=== PATIENT | female | born 1955 | race Caucasian/White ===

== ENCOUNTER → 2023-10-27 13:23 | Outpatient (REF) | payer OTHER, SELFPAY | LOC: RAD 13:23 | PROVIDERS: ATTENDING PHYSICIAN Internal Medicine | DX: Z12.31 Encounter for screening mammogram for malignant neoplasm of breast (principal); Z78.0 Asymptomatic menopausal state; F17.210 Nicotine dependence, cigarettes, uncomplicated | CPT/HCPCS: 71271; 77063; 77067; 77080 ==

== ENCOUNTER 2024-09-29 22:47 | Inpatient (IN) | payer OTHER, SELFPAY ==
[2024-09-29 17:50] VITALS: BP 192/88
[2024-09-29 18:00] VITALS: BP 196/86
[2024-09-29 18:12] LABS: % Basophils 0.4 % (0-2); % Eosinophils 0.8 % (0-6); % Immature Granulocytes 0.4 % (0-0.5); % Lymphocytes 18.9 % (20.5-51.1); % Monocytes 8.1 % (1.7-9.3); % Neutrophils 71.4 % (42.2-75.2); Absolute Eosinophils 0.1 10^3/uL (0-0.7); Absolute Immature Granulocytes 0.1 10^3/uL (0-0.05); Absolute Lymphocytes 2.1 10^3/uL (1.2-3.4); Absolute Monocytes 0.9 10^3/uL (0.1-0.6); Absolute Neutrophils 8.1 10^3/uL (1.4-6.5); Hematocrit 38.7 % (37.0-47.0); Hemoglobin 14.3 g/dL (12.0-16.0); Mean Corpuscular Hgb 33.1 pg (27.0-31.0); Mean Corpuscular Volume 89.6 fL (81.0-99.0); Mean Platelet Volume 9.9 fL (7.4-10.4); Nucleated Red Blood Cells % 0 %; Platelet Count 288 10^3/uL (130-400); Red Blood Cell Count 4.32 10^6/uL (4.20-5.40); Red Cell Dist. Width 12.3 % (11.5-14.5); White Blood Cell Count 11.3 10^3/uL (4.8-10.8)
--- NOTE | 2024-09-29 18:19 | ED.MUSCINJ ---
HPI-Injury
General
Chief Complaint: Fall
Source: patient
Exam Limitations: none
Time Seen by Provider: 09/29/24 18:06
Nursing documentation reviewed up to this point in time: agreed with
History of Present Illness-Injury
Is this injury a work related problem?: No
Is pt an associate of [facility]?: No
Initial Injury comments:
Patient states she was walking down basement steps and tripped. Fell down 2 steps. SHe denies hitting her head. No LOC. COmplains of pain to right hip, knee and wrist. Injury occurred just ASSURANCE SENIOR MANAGER>
Past History
Past History
ED Past Medical History: Hypercholesterolemia, Hypothyroidism and Other (Parkinson's disease)
Social History
Tobacco: Non-smoker
Personal:
Living: with family
Employment: Employed
Review of Systems
Review of Systems
Allergies reviewed?: Yes
All Other Systems: ROS reviewed and negative except as documented in HPI and ROS
Constitutional: Reports no symptoms
EENT: Reports no symptoms
Respiratory: Reports no symptoms
Cardiac: Reports no symptoms
ABD/GI: Reports no symptoms
: Reports no symptoms
Musculoskeletal: Reports joint pain (Pain to rght wrist, right knee, right hip)
Skin: Reports no symptoms
Neurological: Reports no symptoms
Psychiatric: Reports no symptoms
Musculoskeletal Injury Exam
Musculoskeletal Injury Exam
Right Wrist:
Pain with Movement?: Moderate
Tender to palpation?: Moderate
Soft tissue swelling?: Mild
External deformity and angulation?: None
Joint effusion?: None
Contusion?: None
Hematoma-local bleeding into tissue?: Moderate
Strain- Sprain- Tear (Connective tissue injury)?: Moderate
Crepitus with movement?: No
Joint instability?: No
Malalignment/deformity?: No
Range of motion: Limited
Distal skin color and temperature: normal-warm & good color
Capillary Refill: normal
Normal distal neurovascular exam?: Yes
Peripheral Pulses: radial (right): 3+
Right Hip:
Pain with Movement?: Moderate
Tender to palpation?: Moderate
Soft tissue swelling?: None
External deformity and angulation?: None
Joint effusion?: None
Contusion?: Moderate
Hematoma-local bleeding into tissue?: None
Strain- Sprain- Tear (Connective tissue injury)?: Moderate
Crepitus with movement?: No
Joint instability?: No
Malalignment/deformity?: No
Range of motion: Limited
Distal skin color and temperature: normal-warm & good color
Capillary Refill: normal
Normal distal neurovascular exam?: Yes
Peripheral Pulses: posterior tibial (right): 3+ and dorsalis pedis (right): 3+
Right Knee:
Pain with Movement?: Moderate
Tender to palpation?: Moderate
Soft tissue swelling?: None
External deformity and angulation?: None
Joint effusion?: None
Contusion?: Moderate
Hematoma-local bleeding into tissue?: None
Strain- Sprain- Tear (Connective tissue injury)?: Moderate
Crepitus with movement?: No
Joint instability?: No
Malalignment/deformity?: No
Range of motion: Limited
Distal skin color and temperature: normal-warm & good color
Capillary Refill: normal
Normal distal neurovascular exam?: Yes
Phy Exam
General Physical Exam
General Presentation: moderate distress
General age: appears stated age
General Skin: warm and dry
General Habitus: normal
General Mental: alert
Cardiovascular Exam
Cardiovascular Exam: regular rate/rhythm
Pulmonary Exam
Pulmonary Exam: no respiratory distress and chest non tender
Musculoskeletal Exam
Musculoskeletal Exam: neuro vasc intact
Skin Exam
Skin Exam: normal color, warm/dry and no rash
Psychiatric Exam
Psychiatric Exam: normal mood/affect
Injury Course
Orders/Labs/Results
Orders:
Orders
09/29/24 17:54
Electrocardiogram (*1) Urgent
Reason for Study: Other
Other Reason for Exam: fall
EKG- Treatment ONCE
09/29/24 18:07
Complete Blood Count/With Diff Urgent
Comprehensive Metabolic Panel Urgent
09/29/24 18:15
0.9% Sodium Chloride 1000 ml [Nss] 1,000 ml IV BOLUS
HYDROmorphone [Dilaudid] 0.25 mg IV NOW STA
Ondansetron Injectable [Zofran] 4 mg IV NOW STA
CR Knee - Right 3 Views Urgent
Comment: LIMITED VIEWS , PT IS COMPATIVE.
Reason For Exam: fall
Hip, Right 2-3 Views [CR Hip - RT w/wo Pel 2-3 Vw*] Urgent
Comment:
Reason For Exam: fall
Include a pelvis x-ray?: Yes
Wrist, Right 3 Views [CR Wrist - Right Min 3 Views] Urgent
Comment:
Reason For Exam: fall
09/29/24 18:27
Carbidopa/Levodopa [Sinemet 25-100] 1 tablet PO NOW STA
09/29/24 19:40
CT Head W/o Iv Contrast Urgent
Comment:
Reason For Exam: change in mental status
09/29/24 19:54
Acetaminophen 1000MG/100Ml [Ofirmev] 1,000 mg in 100 ml IV ONCE
Acetaminophen IV Indication:: No NM & No Enteral Access
09/29/24 21:11
Lorazepam [Ativan] 0.5 mg IV NOW STA
09/29/24 21:13
Electrocardiogram (*1) Urgent
Reason for Study: PreOp
ORTHOPEDIC CONSULT Urgent
Consulting Provider: Willam Yarbrough
Was physician already notified: Yes
EKG- Treatment ONCE
09/29/24 22:24
Admit/Transfer Patient As Directed
Co-Sign Provider:
Level of Care: Inpatient admission
Assign to:: Medical/Surgical
Physician / Group: Corky/Hospitalist
Diagnosis: Right hip fracture
Reason for Hospitalization: Right hip fracture
Expected length of stay greater than two midnights?: Yes
ELOS- Estimated Length of Stay in days: 3
I certify the patient meets the requirements for IP care: Yes
PRN Pain Medication Management As Directed
May give lesser potent ordered pain med per pt: Yes
preference::
Protocol:: Medication orders for pain may be administered in a
manner that supports deferring to patient preference
when the pt is:
- Requesting an ordered lesser potent pain medication.
Least to most potent pain medications are defined
as: acetaminophen < NSAID < tramadol < opioids
(morphine, oxycodone, hydromorphone).
- Requesting a lesser dose of the same medication IF
ORDERED.
- Requesting a less intrusive route of administration
if both routes are prescribed by the provider (PO <
IV).
09/29/24 22:33
Code Status As Directed
Resuscitation Status: Full Code
09/29/24 23:00
Flush (0.9% Sodium Chloride) [Flush (Nss)] See Dose Instructions IV PER PROTOCOL
09/29/24 23:16
Fentanyl Citrate/Pf [Sublimaze] 25 mcg IV Q1HPRN PRN
09/29/24 23:47
Type+Screen Urgent
09/30/24 00:50
0.9% Sodium Chloride 1000 ml [Nss] 1,000 ml IV 75 mls/hr
Acetaminophen [Tylenol] 650 mg PO Q4HWA
Docusate Sodium [Colace] 100 mg PO BID
Lorazepam [Ativan] 1 mg PO DAILY PRN anxiety
Magnesium Hydroxide [Milk of Magnesia] 30 ml PO DAILYPRN PRN
Ondansetron Injectable [Zofran] 4 mg IV Q6HPRN PRN
Sennosides [Senokot] 17.2 mg PO BID
Tamsulosin [Flomax] 0.4 mg PO DAILYPRN PRN
09/30/24 00:50
Activity As Directed
Activity Level: Bedrest
Bladder Scan As Directed
Follow Bladder Retention/Intermittent Cath Algorithm?: Yes
PRN if no void in __ hours: 6
Comment: if not voiding 6 hrs upon arrival to floor, bladder scan & follow algorithm
Intake/ Output As Directed
Frequency: Per unit guidelines
Neurovascular Checks As Directed
Location: Right Lower extremity
Frequency: q4h
Pneumatic Compression Sleeves As Directed
Type: Knee high
Straight Cath As Directed
Frequency: Per Retention Algorithm
Additional Instructions: straight cath as needed per acute urinary retention algorithm for 24 hrs
Additional Instructions: for bladder scan greater than 400 mL
Vital Signs As Directed
Frequency: Per unit guidelines
DX Deep Vein Thrombosis Video Routine
09/30/24 04:30
Carbidopa/Levodopa [Sinemet 25-100] 1 tablet PO DAILY@0430
09/30/24 Breakfast
NPO
Allow oral meds: Yes
Allow clear liquids: No
09/30/24 07:00
CeFAZolin 2 GRAM [Ancef] 2 grams in 10 ml IV PRE PROCEDURE
Povidone Iodine 10% Solution [Povidone Iodine 10%] 38 ml 0.9% Sodium Chloride 1000 ml [Nss] 1,000 ml IRRIG OR
09/30/24 08:00
Carbidopa/Levodopa [Sinemet 25-100] 1 tablet PO DAILY
Levothyroxine [Synthroid] 25 mcg PO DAILY
09/30/24 10:00
Carbidopa/Levodopa Cr [Sinemet Cr 25-100 (Extended Release)] 1 tablet PO BID@1000,2100
Carbidopa/Levodopa [Sinemet 25-100] 1 tablet PO DAILY@1000
09/30/24 13:00
Carbidopa/Levodopa [Sinemet 25-100] 2.5 tablet PO DAILY@1300
09/30/24 16:00
Carbidopa/Levodopa [Sinemet 25-100] 2.5 tablet PO DAILY@1600
09/30/24 19:00
Carbidopa/Levodopa [Sinemet 25-100] 2.5 tablet PO DAILY@1900
09/30/24 21:00
Carbidopa/Levodopa [Sinemet 25-100] 1 tablet PO DAILY@2100
Finasteride [Proscar] 5 mg PO DAILY
Minoxidil [Loniten] 2.5 mg PO DAILY
Rosuvastatin Calcium [Crestor] 10 mg PO DAILY
Abnormal Lab Results
09/29/24
18:07
WBC 11.3 H 10^3/uL
(4.8-10.8)
MCH 33.1 H pg
(27.0-31.0)
Abs Immat Gran (auto) 0.1 H 10^3/uL
(0-0.05)
Absolute Neuts (auto) 8.1 H 10^3/uL
(1.4-6.5)
Absolute Monos (auto) 0.9 H 10^3/uL
(0.1-0.6)
Lymphocytes % 18.9 L %
(20.5-51.1)
Chloride 108 H mmol/L
(98-107)
BUN 18 H mg/dl
(7-17)
AST 44 H U/L
(14-36)
09/29/24 18:07
09/29/24 18:07
*Radiology
Radiology exam reviewed: radiology read reviewed
*Pulse Oximetry
Patient hypoxic: no
*Critical Care Note
Total Time (30-74mins, 75-104mins- exclusive of procedures): Not Applicable
Update Note
Update Note:
Xray reviewed, confirms right hip fracture. Dr. Yarbrough notified, will plan for surgery in the AM. SHe will be admitted to the hospitalist service, NPO after MN. Dr. Yarbrough requests holding initiation of heparin or lovenox, hospitalist is aware.
ED Attending Note
-
Portions of this chart may have been created with voice recognition software.� Occasional wrong word or��sound alike� substitutions may have occurred due to the inherent limitations of voice recognition software.
Discharge Plan
Departure
Patient Disposition: Admit
Date of Disposition: 09/29/24
Time of Disposition: 21:14
Presentation/result/management discussed w/ accepting MD/DO: Hospitalist
Patient with high blood pressure during this ER visit?: No
Condition: Fair
Covid-19: Not Applicable
Discharge Problem:
Closed fracture of right hip
Interventions
Interventions:
*Risk Screen - Suicide Last Done: 09/29/24 18:02
*General Assessment Last Done: 09/29/24 18:02
*Neglect/Abuse Screening Last Done: 09/29/24 18:02
*Nursing Disposition Last Done: 09/30/24 00:30
ED-Musculoskeletal Assessment Last Done: 09/29/24 17:55
ED- Neurological Assessment Last Done: 09/29/24 17:54
ED-Skin Assessment Last Done: 09/29/24 18:03
Discharge Date and Time
Discharge Date/Time: 09/30/24 00:30
[2024-09-29] MEDS: DILAUDID 0.25 MG IV (18:30)
[2024-09-29] MEDS: ZOFRAN 4 MG IV (18:31)
[2024-09-29 18:40] LABS: ALT (SGPT) < 10 U/L (0-35); AST (SGOT) 44 U/L (14-36); Albumin 4.7 g/dl (3.5-5.0); Alkaline Phosphatase 78 U/L (38-126); Blood Urea Nitrogen 18 mg/dl (7-17); Calcium 9.6 mg/dl (8.4-10.2); Carbon Dioxide 22 mmol/L (22-30); Chloride 108 mmol/L (98-107); Glucose 92 mg/dl (70-99); Potassium 3.9 mmol/L (3.5-5.1); Sodium 138 mmol/L (135-145); Total Protein 7.5 g/dl (6.3-8.2); eGFR > 60.00
[2024-09-29] MEDS: NSS 1000 IV (18:55)
[2024-09-29 19:00] VITALS: BP 186/87
[2024-09-29] MEDS: OFIRMEV 100 IV (19:56)
[2024-09-29 20:45] VITALS: BP 180/105
[2024-09-29] MEDS: ATIVAN 0.5 MG IV (21:14)
--- NOTE | 2024-09-29 21:35 | HPS.HSE ---
Addendum entered and electronically signed by Eliana Fried, DO 09/30/24 01:28:
The patient is being transferred to the IMU because fentanyl IV push is restricted to the CC, IMU or IVU. She is requiring IV fentanyl due to intractable pain from her hip fracture, had acute delirium in the emergency department with Dilaudid, and
she has a history of hives with morphine and therefore for we will need to continue the IV fentanyl as needed for pain and will transfer her overnight to the IMU preoperatively.
Addendum entered and electronically signed by Eliana Fried, DO 09/29/24 22:52:
The patient has low risk factors for cardiovascular and pulmonary surgical complications and is medically clear to proceed with surgical intervention.
Original Note:
Family Physician
-
Family Physician: Karolina Guo
Chief Complaint
-
Fall down 2 stairs, right hip pain
History of Present Illness
The patient is a 69-year-old woman who presented to the ED via EMS, with past medical history significant for hyperlipidemia, hypothyroidism, Parkinson's disease who tripped and fell while walking down her basement steps associated with right hip
knee and wrist pain. This injury occurred prior to arrival. Orthopedic surgeon has been contacted in the emergency department. The plan will be for surgery tomorrow morning at 11 AM. No CP, no SOB, no palpitations, no n/v/d. She became acutely
agitated after receiving IV Dilaudid 0.25 mg in the ED. She seemed to tolerate fentanyl per EMS
ED treatment�IV fluids 1 L bolus, IV Dilaudid, IV Zofran
Medical History
Past Medical History
Past Medical History: Reports Hypercholesterolemia, Hypothyroidism and Other (Parkinson's disease)
Past Surgical History: Reports Orthopedic (Right wrist status post metal plate and screws transfixing an old healed fracture of the distal right radius)
Social History
Tobacco: Non-smoker
Personal:
Living: With Family
Family History
Family History: Not pertinent
Allergies / Home Medications
Allergies reflects when Allergies were last updated in [employer].
Home Medications with original date entered in [employer]
Allergy/Medication List:
Allergies
Allergy/AdvReac Type Severity Reaction Status Date / Time
Iodinated Contrast Media (IV Allergy Intermediate Rash Verified 09/29/24 17:51
Dye, Iodine Containing)
morphine (Morphine) Allergy Intermediate Rash Verified 09/29/24 17:51
Home Medications
carbidopa ER 25 mg-levodopa 100 mg tablet,extended release 1 tab PO BID 09/29/24 at 10am and 4 pm
carbidopa 25/100 short-acting at 430am, 1 tab 8 am, 1 tab 10 am, 2.5 tabs at 1pm, 2.5 tabs 4pm, 2.5 tabs 7 pm, 1 tab 9 pm
escitalopram oxalate 20 mg tablet (Lexapro) 20 mg PO DAILY 09/29/24
finasteride 5 mg tablet 5 mg PO DAILY 09/29/24
levothyroxine 25 mcg tablet (Synthroid) 25 mcg PO DAILY 09/29/24
lorazepam 1 mg tablet (Ativan) 1 mg PO DAILY PRN anxiety 09/29/24
minoxidil 2.5 mg tablet 2.5 mg PO DAILY 09/29/24
rosuvastatin 10 mg tablet 10 mg PO DAILY 09/29/24
Review of Systems
-
A 12 point ROS was completed and negative except as noted: Yes
Physical Exam
Vital Signs
Vital Signs
Temp Pulse Resp BP Pulse Ox
98.1 F 88 20 186/87 100
09/29/24 18:00 09/29/24 19:30 09/29/24 18:00 09/29/24 19:00 09/29/24 19:15
Physical Exam
General: Well Developed, Well Nourished, Appears in Distress and Pain (due to hip pain)
HEENT: NormoCephalic, Anicteric and Other (dry mucous membranes)
Respiratory: Clear
Cardiac: S1/S2, Regular Rhythm and Other (good distal pulses b/l LE and neurovascular intact)
GI: Soft, Non Tender and Non Distended
Musculoskeletal: No Clubbing, No Cyanosis and No Edema
Skin: Warm and Dry
Neuro: No Motor Deficits and Nonfocal/grossly intact
Psych: Calm
Laboratory Results
-
09/29/24 18:07
09/29/24 18:07
Laboratory Results
Total Bilirubin 1.0 mg/dl (0.2-1.3) 09/29/24 18:07
AST 44 U/L (14-36) H 09/29/24 18:07
ALT < 10 U/L (0-35) 09/29/24 18:07
Alkaline Phosphatase 78 U/L (38-126) 09/29/24 18:07
Data Reviewed
-
Diagnostic Radiology: Report Reviewed by me (Wrist x-ray, right wrist shows metal plate and screws seen transfixing an old healed fracture of the distal right radius without findings to suggest recent cortical fracture, osseous degenerative changes
noted) and Other (Right knee x-ray no findings to suggest recent cortical fracture, osseous DJD noted, x-ray right hip-fracture through the neck of the proximal right femur, osseous degenerative changes)
CT Scan: Report Reviewed by me (CT scan of the head shows no acute intracranial abnormalities, diffuse cortical atrophy with nonspecific white matter changes)
Impression/Plan
-
IMPRESSION:The patient is a 69-year-old woman who presented to the ED via EMS, with past medical history significant for hyperlipidemia, hypothyroidism, Parkinson's disease who tripped and fell while walking down her basement steps associated with
right hip knee and wrist pain. This injury occurred prior to arrival. Orthopedic surgeon has been contacted in the emergency department. The plan will be for surgery tomorrow morning at 11 AM. No CP, no SOB, no palpitations, no n/v/d. She became
acutely agitated after receiving IV Dilaudid 0.25 mg in the ED. She seemed to tolerate fentanyl per EMS
ED treatment�IV fluids 1 L bolus, IV Dilaudid, IV Zofran
# Right hip-fracture through the neck of the proximal right femur due to mechanical fall
�Orthopedics has been consulted through the ED
�N.p.o. past midnight, IV fluids, hold on anticoagulation, SCDs for DVT prophylaxis, as needed pain meds and antiemetics
-The patient had acute agitation after receiving Dilaudid in the emergency department, she seemed to tolerate fentanyl and will continue fentanyl as needed.
-Ativan IV as needed agitation, she takes 1 mg p.o. Ativan once daily and received a dose in the emergency department which was well-tolerated
# Parkinson's disease, she takes Sinemet extended release twice a day and short acting Sinemet 7 times daily
-Will continue her Sinemet at her current dosing schedule
# Hypothyroidism, continue Synthroid
#Alopecia/hair loss
-She takes finasteride and minoxidil for this we will hold tonight
# Continue Lexapro
# Hyperlipidemia
-Continue rosuvastatin
DVT prophylaxis�PCD's
Full code
[2024-09-29 23:41] VITALS: BP 150/62
[2024-09-29] MEDS: SUBLIMAZE 25 MCG IV (23:45)
[2024-09-30] VITALS (15 sets, daily range): BP systolic 100–166; BP diastolic 49–80; BMI 21.4; BMI 21.6
[2024-09-30] MEDS: COLACE PO ×2 (01:18→01:33)
[2024-09-30] MEDS: TYLENOL PO ×3 (01:18→12:30)
[2024-09-30] MEDS: NSS 1000 IV ×2 (01:19→19:27)
[2024-09-30] MEDS: SENOKOT PO ×2 (01:19→01:33)
--- NOTE | 2024-09-30 01:30 | PTCARENOTE ---
Receive pt from ER. Pt pulled over to her bed. Complains about right hip pain (5/10). Pt states that she is at [facility], she doesn't know the month, but she knows the year. Pt's RR=14, SP=894/80, HR=85, SpO2=99% on RA, T=97.9. Pt drowsy,
eyes close. She was able to answer some questions mostly yes, No. She also nod her head at times. Pt was given Fentanyl 25mcg in ER. Attempted to give pt PO meds, pt was unable to open her eyes and take sips of water. No PO meds given because of
this pt's condition. Most of pt's Hx was provided by pt's niece 'Thalia'. Asked pharmacy about Fentanyl order, pharmacy to check with hospitalist if the pt will be kept on Fentanyl IV Push Q1H. Hospitalist to keep pt on Fentanyl IV push PRN. Pt will
be transferred to IMU. Report given to Lori HENLEY. Pt transferred to IMU with no issues. Drowsy, but arousable.
--- NOTE | 2024-09-30 03:06 | PTCARENOTE ---
Patient transported from via stretcher. Upon initial assessment pt is AAOx3, very drowsy. Pt able to answer all questions correctly and appropriately. Pt is in NSR HR 83. 98% on room air. Pt has notable swelling in the right leg and right foot.
Pulses palpable. Sensation intact. Pt experiencing 6/10 pain to the right hip. Pt oriented to the unit and educated about the call paulino. Bed alarm is on for safety following a fall at home. Call paulino is within reach.
[2024-09-30] MEDS: SINEMET 25-100 1 TABLET PO ×3 (04:25→21:16)
[2024-09-30] MEDS: TYLENOL 650 MG PO ×5 (04:28→23:26)
[2024-09-30] MEDS: SUBLIMAZE 25 MCG IV (04:49)
--- NOTE | 2024-09-30 05:00 | PTCARENOTE ---
Patient experiencing 8/10 pain crying out. VSS. Pt had scheduled dose of Tylenol with minimal improvement. Pt stating 'my pain is getting worse'. PRN Sublimaze administered PRN see JUN. Appears pt is resting more comfortably.
--- NOTE | 2024-09-30 08:28 | W.PN.HOSP.TC ---
Today's Communication/Plan
-
NPO for OR
fentanyl for pain control; can see if tolerates oxycodone post-op
Assessment / Plan
Assessment / Plan
IMPRESSION:The patient is a 69-year-old woman who presented to the ED via EMS, with past medical history significant for hyperlipidemia, hypothyroidism, Parkinson's disease who tripped and fell while walking down her basement steps associated with
right hip knee and wrist pain. This injury occurred prior to arrival. Orthopedic surgeon has been contacted in the emergency department. The plan will be for surgery this morning. No CP, no SOB, no palpitations, no n/v/d. She became acutely
agitated after receiving IV Dilaudid 0.25 mg in the ED. She seemed to tolerate fentanyl per EMS
# Right hip-fracture through the neck of the proximal right femur due to mechanical fall
�Orthopedics has been consulted through the ED
�N.p.o. past midnight, IV fluids, hold on anticoagulation, SCDs for DVT prophylaxis, as needed pain meds and antiemetics
-The patient had acute agitation after receiving Dilaudid in the emergency department, she seemed to tolerate fentanyl and will continue fentanyl as needed, therefore requires IMU
-Ativan IV as needed agitation, she takes 1 mg p.o. Ativan once daily and received a dose in the emergency department which was well-tolerated
The patient has low risk factors for cardiovascular and pulmonary surgical complications and is medically clear to proceed with surgical intervention.
# Parkinson's disease, she takes Sinemet extended release twice a day and short acting Sinemet 7 times daily
-Will continue her Sinemet at her current dosing schedule
# Hypothyroidism, continue Synthroid
#Alopecia/hair loss
-She takes finasteride and minoxidil for this we will hold tonight
# Continue Lexapro
# Hyperlipidemia
-Continue rosuvastatin
DVT prophylaxis�SCD's
Full code
Anticipated Discharge: > 48 hours
Subjective/Interval History
-
Date of Service: September 30, 2024
she is tired this morning
denies chest pain or shortness of breath
Objective Data
-
Vital Signs:
Vital Signs
Temp Pulse Resp BP Pulse Ox
98.3 F 80 15 110/55 93
09/30/24 02:58 09/30/24 06:30 09/30/24 06:30 09/30/24 06:00 09/30/24 06:30
I&O
09/29/24 09/30/24 10/01/24
06:59 06:59 06:59
Intake Total 600 / 600
Balance 600 / 600
Review of Systems
-
History Source: Patient
All other systems: Reviewed and negative
Physical Exam
-
General: No Apparent Distress
HEENT: PERRLA
Respiratory: Clear to Auscultation; Negative Wheezes
Cardiac: Regular Rhythm and S1/S2
GI: Soft and Nontender
Musculoskeletal: No Edema
Skin: Warm and Dry; Negative Rash
Neuro: Sedated
Psych: Calm
Data Reviewed
-
Diagnostic Radiology: Report Reviewed by me
Labs: Labs Reviewed by me
--- NOTE | 2024-09-30 08:30 | PTCARENOTE ---
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 Patient resting comfortably in bed. AAO but very drowsy, VSS. No events noted overnight. Complaints of pain in right hip, patient was given Fentanyl PRN and is drowsy. Will assess for safety of next PRN dose
if necessary. Scheduled Tylenol ordered. No fluids through IV. For OR today. Call paulino in reach.
[2024-09-30] MEDS: SENOKOT 17.2 MG PO ×2 (09:00→19:28)
[2024-09-30] MEDS: SYNTHROID 25 MCG PO (09:01)
[2024-09-30] MEDS: COLACE 100 MG PO ×2 (09:01→19:27)
[2024-09-30] MEDS: SINEMET 25-100 PO ×2 (10:45→13:00)
[2024-09-30] MEDS: SINEMET CR 25-100 (EXTENDED RELEASE) PO (10:45)
--- NOTE | 2024-09-30 11:06 | CON.ORTHO ---
Consultation - Orthopedics
History
HPI: 69yo female admitted to [facility] for right hip pain. Yesterday, she did have a fall while walking down basement steps, landing on her right side. She had right hip pain and inability to bear full weight. She was evaluated at
[facility] where xrays confirmed a right hip fracture. She is currently resting comfortably in bed but does have pain with movement. Her family/friends are at the bedside. She is not on any blood thinners. She does have a history of Parkinson's.
PAST MEDICAL HISTORY: hyperlipidemia, hypothyroidism, Parkinson's disease
PAST SURGICAL HISTORY: None reported
SOCIAL HISTORY: lives at home alone but has family/friends who help as needed. denies tobacco, alcohol
FAMILY HISTORY: non contributory
REVIEW OF SYSTEMS: 12 point review of systems obtained and negative except those mentioned in the HPI
Allergies / Home Medications
Allergy/AdvReac Type Severity Reaction Status Date / Time
Iodinated Contrast Media (IV Allergy Intermediate Rash Verified 09/29/24 17:51
Dye, Iodine Containing)
morphine (Morphine) Allergy Intermediate Rash Verified 09/29/24 17:51
�Medication �Instructions �Recorded
carbidopa ER 25 mg-levodopa 100 mg 1 tab PO TID Neurological Condition 09/29/24
tablet,extended release
escitalopram oxalate 20 mg tablet 20 mg PO DAILY Mental 09/29/24
(Lexapro) Health/Anxiety
finasteride 5 mg tablet 5 mg PO DAILY Urinary Issue 09/29/24
levothyroxine 25 mcg tablet 25 mcg PO DAILY Thyroid 09/29/24
(Synthroid)
lorazepam 1 mg tablet (Ativan) 1 mg PO DAILY PRN anxiety 09/29/24
minoxidil 2.5 mg tablet 2.5 mg PO DAILY Blood Pressure 09/29/24
rosuvastatin 10 mg tablet 10 mg PO DAILY High Cholesterol 09/29/24
Vital Signs / Lab Results
Temp Pulse Resp BP Pulse Ox
98.6 F 80 15 110/55 93
06/14/25 07:30 09/30/24 06:30 09/30/24 06:30 09/30/24 06:00 09/30/24 06:30
09/29/24 18:07
09/29/24 18:07
RADIOGRAPHIC FINDINGS:
Xrays right hip show right femoral neck fracture. Osseous degenerative changes are seen. Some atherosclerotic vascular soft tissue calcifications are noted.
PHYSICAL EXAM:
General: no acute distress
HEENT: NCAT, sclera anicteric, normal hearing
Heart: No JVD
Lungs: Normal work of breathing on room iar
MSK: Directed exam of right hip performed. Right left is shortened and externally located. +TTP over the lateral hip. +Log roll. ROM hip deferred. calf soft and nontender. NVI distally
Assessment / Plan
ASSESSMENT: 69yo female with right displaced femoral neck fracture
PLAN: Patient seen in tandem with Dr. Yarbrough. Unfortunately, Ms. Alexandra sustained a fall yesterday resulting in a right femoral neck fracture. Recommend operative fixation with right total hip arthroplasty under the direction of Dr. Yarbrough. The
risks, benefits, potential complications, and expected postop course were reviewed with the patient and family/friends at bedside. She is in agreement with the plan. Surgical and blood consent obtained. She has been NPO since midnight. Ancef and
irrigation ordered for the OR. She will require PT/OT evaluation postop. We will continue to follow along.
--- NOTE | 2024-09-30 11:13 | W.PN.UPDATE ---
Update Note
Progress Note Update
Pt seen and examined, RBA of repair of right hip fx discusse dw. patient who desires to proceed. Her close famliy friends and POA were all present and all in agreement. Caution against hip dislocatoin advised given hx of parkinsons disease. We
will do surg this am.
[2024-09-30] MEDS: SINEMET CR 25-100 (EXTENDED RELEASE) 1 TABLET PO ×2 (11:28→21:19)
[2024-09-30] MEDS: DILAUDID 0.25 MG IV (13:46)
--- NOTE | 2024-09-30 14:19 | PTCARENOTE ---
Patient received from PACU. AAO, drowsy but able to answer questions appropriately, VSS. Re-oriented to room. Lunch order taken. Pain assessed as a dull pain, no medication required at this time time, will continue to assess. Procedure site
assess, aquacell CDI with a scant amount of shadowing. Q4 neurovascular checks x24hrs then qshift. Call paulino in reach.
--- NOTE | 2024-09-30 14:45 | CM ---
CM following re: discharge planning.
Reviewed pt's chart, met with pt.
Pt is a 69 year old female, admitted with primary dx of POD#0 Right total hip arthroplasty.
Pt reports she lives alone in [place], no steps to enter, has no children, has a cat, has supportive cousins and they take care of the cat. Pt stated if she needs to go to a SNF she will prefer [facility].
PT and OT will evaluate the pt to determine a level of care at discharge.
CM will make a referral to [facility] after PT/OT evaluations.
PCP: Karolina Guo
Pharmacy: [facility]
D/C plan: probably [facility] when medically stable and recommended by PT/OT.
CM will follow with discharge plan updates as hospitalization progresses
[2024-09-30] MEDS: SINEMET 25-100 2.5 TABLET PO ×2 (16:11→19:27)
[2024-09-30] MEDS: SUBLIMAZE 12.5 MCG IV (16:24)
[2024-09-30] MEDS: ASPIRIN 325 MG PO (19:28)
[2024-09-30] MEDS: ANCEF 5 IV (19:28)
--- NOTE | 2024-09-30 20:00 | PTCARENOTE ---
Patient was able to use commode with assistance x1 and then sat in the chair for approx. 30 min. Hip precautions maintained.
[2024-09-30] MEDS: LONITEN 2.5 MG PO (21:15)
[2024-09-30] MEDS: PROSCAR 5 MG PO (21:15)
[2024-09-30] MEDS: CRESTOR 10 MG PO (21:16)
--- NOTE | 2024-09-30 23:53 | PTCARENOTE ---
pt is drowsy, but arousable. Neurovascular checks - weak pedal pulses, can wiggle toes, warm sensation. hip precautions maintained. pt resting w/ call paulino in reach.
[2024-10-01] VITALS (14 sets, daily range): BP systolic 98–143; BP diastolic 45–114; PULSE 76; BMI 22.6
[2024-10-01] MEDS: TYLENOL 650 MG PO ×3 (03:36→11:16)
[2024-10-01] MEDS: SINEMET 25-100 1 TABLET PO ×4 (03:36→21:02)
[2024-10-01] MEDS: ANCEF 5 IV (03:36)
[2024-10-01] MEDS: SUBLIMAZE 12.5 MCG IV (03:37)
[2024-10-01 04:16] LABS: Hematocrit 34.1 % (37.0-47.0); Hemoglobin 11.8 g/dL (12.0-16.0); Mean Corp Hgb Conc. 34.6 g/dL (33.0-37.0); Mean Corpuscular Volume 92.4 fL (81.0-99.0); Mean Platelet Volume 9.9 fL (7.4-10.4); Platelet Count 228 10^3/uL (130-400); Red Blood Cell Count 3.69 10^6/uL (4.20-5.40); Red Cell Dist. Width 12.8 % (11.5-14.5); White Blood Cell Count 15.2 10^3/uL (4.8-10.8)
[2024-10-01 04:29] LABS: Blood Urea Nitrogen 15 mg/dl (7-17); Calcium 8.8 mg/dl (8.4-10.2); Carbon Dioxide 21 mmol/L (22-30); Chloride 111 mmol/L (98-107); Estimated Creatinine Clearance 58 ml/min; Glucose 191 mg/dl (70-99); Potassium 4.2 mmol/L (3.5-5.1); Sodium 139 mmol/L (135-145); eGFR > 60.00
--- NOTE | 2024-10-01 05:35 | PTCARENOTE ---
pt OOB to chair w/ RW x1 x 40mins. pt needs reminders re: hip precautions.
Updated WINE CELLAR WORKER Yarely White re: lab results.
--- NOTE | 2024-10-01 07:55 | PTCARENOTE ---
Immediately after receiving report, pt set off bed alarm. Pt extremely confused and pulling off monitor equipment, climbing OOB, and breaking hip precautions. Pt unable to be redirected. Staff assisted pt back to bed. Pt then repeatedly removing
equipment and again climbing OOB. Staff assisted pt back to bed and reapplied equipment several more times. Dr Gonzalez notified, order received for B/L soft wrist restraints. Applied as ordered- see intervention.
--- NOTE | 2024-10-01 08:06 | W.PN.HOSP.TC ---
Addendum entered and electronically signed by Vee Gonzalez MD 10/01/24 15:19:
Pharmacy confirmed patient's current Sinemet dosing, no changes necessary as patient taking way she takes at home.
Addendum entered and electronically signed by Vee Gonzalez MD 10/01/24 15:19:
I will make Ativan scheduled daily, as she takes it daily at home
She also has extra 0.5mg dose daily if needed
Patient takes an extra Sinemet early in the morning as needed. Plan discussed with patient's primary contact. We discussed adding this dose, as family believes agitation this AM partially related to patient with increased stiffness/spasticity in
not being able to get this dose.
Original Note:
Today's Communication/Plan
-
trial of oxycodone (if tolerates can stop fentanyl and move from IMU)
Ativan for anxiety
PT/OT
appreciate ortho
Assessment / Plan
Assessment / Plan
IMPRESSION:The patient is a 69-year-old woman who presented to the ED via EMS, with past medical history significant for hyperlipidemia, hypothyroidism, Parkinson's disease who tripped and fell while walking down her basement steps associated with
right hip knee and wrist pain. This injury occurred prior to arrival. Orthopedic surgeon has been contacted in the emergency department. The plan will be for surgery this morning. No CP, no SOB, no palpitations, no n/v/d. She became acutely
agitated after receiving IV Dilaudid 0.25 mg in the ED. She seemed to tolerate fentanyl per EMS
# Right hip-fracture through the neck of the proximal right femur due to mechanical fall
-s/p OR 09/30/24
-asa 325mg PO QD for DVT PPx
-pain control - will trial oxycodone today. reports of delirium post Dilaudid. She also had delirium this AM
-Ativan IV as needed agitation if she will not take PO, she takes 1 mg p.o. Ativan once daily
-PT/OT
# Parkinson's disease, she takes Sinemet extended release twice a day and short acting Sinemet 7 times daily
-Will continue her Sinemet at her current dosing schedule
-patient confirmed this dosing
Acute blood loss anemia, post-op
-no active signs of bleeding
-monitor
Leukocytosis
-suspect stress reaction from fracture then OR
-monitor off of antibiotics, no e/o infection
# Hypothyroidism, continue Synthroid
#Alopecia/hair loss
-She takes finasteride and minoxidil for this we will hold tonight
# Continue Lexapro
# Hyperlipidemia
-Continue rosuvastatin
DVT prophylaxis�asa 325
Full code
Anticipated Discharge: 24 - 48 hours
Subjective/Interval History
-
Date of Service: October 01, 2024
patient was agitated earlier, now seems more calm
she required
Objective Data
-
Labs:
Laboratory Results
10/01/24
03:46
WBC 15.2 H
Hgb 11.8 L
Hct 34.1 L
Plt Count 228 D
Sodium 139
Potassium 4.2
Chloride 111 H
Carbon Dioxide 21 L
BUN 15
Creatinine 0.7
Glucose 191 H
Calcium 8.8
Vital Signs:
Vital Signs
Temp Pulse Resp BP Pulse Ox
97.9 F 86 27 127/82 96
10/01/24 06:40 10/01/24 06:00 10/01/24 06:00 10/01/24 06:00 10/01/24 03:27
I&O
09/30/24 10/01/24 10/02/24
06:59 06:59 06:59
Intake Total 600 / 600 1135 / 1135
Balance 600 / 600 1135 / 1135
Review of Systems
-
History Source: Patient
All other systems: Reviewed and negative
Physical Exam
-
General: No Apparent Distress
HEENT: PERRLA
Respiratory: Clear to Auscultation; Negative Wheezes
Cardiac: Regular Rhythm and S1/S2
GI: Soft and Nontender
Musculoskeletal: No Edema
Skin: Warm and Dry; Negative Rash
Neuro: AO x 3
Psych: Anxious
Data Reviewed
-
Diagnostic Radiology: Report Reviewed by me
Labs: Labs Reviewed by me
[2024-10-01] MEDS: COLACE 100 MG PO ×2 (09:09→19:41)
[2024-10-01] MEDS: ASPIRIN 325 MG PO (09:09)
[2024-10-01] MEDS: LONITEN 2.5 MG PO (09:10)
[2024-10-01] MEDS: SYNTHROID 25 MCG PO (09:10)
[2024-10-01] MEDS: PROSCAR 5 MG PO (09:10)
[2024-10-01] MEDS: SENOKOT 17.2 MG PO ×2 (09:10→19:40)
[2024-10-01] MEDS: CRESTOR 10 MG PO (09:11)
[2024-10-01] MEDS: ATIVAN 1 MG PO (11:17)
[2024-10-01] MEDS: SINEMET CR 25-100 (EXTENDED RELEASE) 1 TABLET PO ×2 (11:17→21:02)
--- NOTE | 2024-10-01 11:30 | PTCARENOTE ---
Pt's family at bedside. Much calmer, becoming Aox3 and cooperative. Wrist restraints removed. Needs reinforcement on hip precautions. Bed alarm remains in place.
[2024-10-01] MEDS: SINEMET 25-100 2.5 TABLET PO ×3 (13:57→19:41)
--- NOTE | 2024-10-01 14:08 | W.PN.ORTHO ---
Today's Communication / Plan
-
POD#1 right PROSPER for right femoral neck fracture under the direction of Dr. Yarbrough
--Weight bearing as tolerated. Ambulate with assistive device
--Maintain hip precautions x6 weeks postop
--PT/OT
--Continue with pain management
--Maintain dressing until 7-10 days postop
--Aspirin 325mg daily x4 weeks postop for DVT prophylaxis
--Case management consult for discharge planning
--We will continue to follow along
Assessment
.
Distal Motor Intact: Yes
Dressing:
strikethrough to center
Plan
.
Surgery / Date: Right PROSPER 09/30/24 Dr. Yarbrough
DVT Prophylaxis: Aspirin
Activity:
Out of bed.
PT/OT
Subjective
.
.:
Patient resting comfortably in bed. She reports that she has been out of bed. She does have pain in the hip
Vital Signs and Labs
.
Vital Signs and Labs:
Lab Results
10/01/24 03:46
10/01/24 03:46
Temp Pulse Resp BP Pulse Ox
97.9 F 76 20 123/66 94
10/01/24 06:40 10/01/24 11:45 10/01/24 11:45 10/01/24 10:00 10/01/24 11:57
Physical Exam
-
Directed exam of the right hip reveals primaseal dressing in place with mild strikethrough to the center. +TTP over lateral hip, thigh is soft and compressible. able to plantarflex/dorsiflex the ankle. calf soft and nonteder. NVI distally
--- NOTE | 2024-10-01 18:30 | PTCARENOTE ---
Pt increasingly confused and agitated. Pt is EXTREMELY argumentative regarding safety precautions. This RN and PCT spent approx. one hour redirecting pt and assisting with trip to bathroom and back again. Throughout this time pt continues to argue
with staff about policies and safety procedures. Pt repeatedly disregarding hip precautions and stating staff is 'annoying'. Visitor at bedside who is also attempting to remind her of safety precautions. Pt OOB in chair at this time, bed alarm in
place.
[2024-10-01] MEDS: TYLENOL 1000 MG PO (19:40)
[2024-10-02] VITALS (12 sets, daily range): BP systolic 102–177; BP diastolic 40–85; PULSE 85
--- NOTE | 2024-10-02 01:17 | PTCARENOTE ---
Pt alert and oriented at this time, but very forgetful. Pt can be argumentative and refuses hip precautions at times. Precautions reinforced to the best of ability. Bed alarm in place for pt safety. Call paulino within reach.
[2024-10-02] MEDS: ROXICODONE 5 MG PO (03:33)
[2024-10-02] MEDS: SINEMET 25-100 1 TABLET PO ×4 (03:33→22:52)
[2024-10-02 04:00] LABS: Hematocrit 35.6 % (37.0-47.0); Hemoglobin 12.4 g/dL (12.0-16.0); Mean Corp Hgb Conc. 34.8 g/dL (33.0-37.0); Mean Corpuscular Hgb 32.4 pg (27.0-31.0); Platelet Count 253 10^3/uL (130-400); Red Blood Cell Count 3.83 10^6/uL (4.20-5.40); Red Cell Dist. Width 13.2 % (11.5-14.5)
--- NOTE | 2024-10-02 04:03 | PTCARENOTE ---
Pt with BP 177 systolic following trip to bathroom. Pt c/o experiencing R hip pain at this time. Medicated per JUN.
[2024-10-02 04:35] LABS: Blood Urea Nitrogen 13 mg/dl (7-17); Calcium 9.4 mg/dl (8.4-10.2); Carbon Dioxide 27 mmol/L (22-30); Chloride 113 mmol/L (98-107); Estimated Creatinine Clearance 68 ml/min; Glucose 96 mg/dl (70-99); Potassium 3.8 mmol/L (3.5-5.1); Sodium 145 mmol/L (135-145); eGFR > 60.00
--- NOTE | 2024-10-02 06:02 | W.PN.ORTHO ---
Today's Communication / Plan
-
69F POD#1 right PROSPER for right femoral neck fracture w/ Dr. Yarbrough
--Weight bearing as tolerated. Ambulate with assistive device
--Maintain posterior hip precautions x6 weeks postop
--PT/OT/DC planning
--Continue with pain management
--Maintain dressing until 7-10 days postop
--Aspirin 325mg daily x4 weeks postop for DVT prophylaxis
--DC info UTD; ortho surg will follow peripherally
Assessment
.
Distal Motor Intact: Yes
Dressing:
Clean, dry and intact.
Plan
.
Surgery / Date: Right PROSPER 09/30/24 Dr. Yarbrough
Activity:
Out of bed.
PT/OT
Subjective
.
.:
Patient resting comfortably. Exhibiting some confusion this AM
Vital Signs and Labs
.
Vital Signs and Labs:
Lab Results
10/02/24 03:44
10/02/24 03:44
Temp Pulse Resp BP Pulse Ox
98.6 F 86 16 177/85 98
10/02/24 03:55 10/02/24 04:00 10/02/24 04:00 10/02/24 04:00 10/01/24 22:27
[2024-10-02] MEDS: COLACE 100 MG PO ×2 (08:11→20:39)
[2024-10-02] MEDS: CRESTOR 10 MG PO (08:11)
[2024-10-02] MEDS: ASPIRIN 325 MG PO (08:11)
[2024-10-02] MEDS: SENOKOT 17.2 MG PO ×2 (08:11→20:39)
[2024-10-02] MEDS: SYNTHROID 25 MCG PO (08:11)
[2024-10-02] MEDS: TYLENOL 1000 MG PO ×3 (08:11→22:54)
[2024-10-02] MEDS: LONITEN 2.5 MG PO (08:12)
[2024-10-02] MEDS: PROSCAR 5 MG PO (08:12)
[2024-10-02] MEDS: ATIVAN 1 MG PO (10:39)
[2024-10-02] MEDS: SINEMET CR 25-100 (EXTENDED RELEASE) 1 TABLET PO ×2 (10:39→22:53)
--- NOTE | 2024-10-02 12:32 | W.PN.HOSP.TC ---
Today's Communication/Plan
-
Stop IV Ativan and monitor
Leukocytoses noted. Monitor. Check UA
Assessment / Plan
Assessment / Plan
IMPRESSION:The patient is a 69-year-old woman who presented to the ED via EMS, with past medical history significant for hyperlipidemia, hypothyroidism, Parkinson's disease who tripped and fell while walking down her basement steps associated with
right hip knee and wrist pain. This injury occurred prior to arrival. Orthopedic surgeon has been contacted in the emergency department. The plan will be for surgery this morning. No CP, no SOB, no palpitations, no n/v/d. She became acutely
agitated after receiving IV Dilaudid 0.25 mg in the ED. She seemed to tolerate fentanyl per EMS
# Right hip-fracture through the neck of the proximal right femur due to mechanical fall
-s/p OR 09/30/24
-asa 325mg PO QD for DVT PPx
-pain control - will trial oxycodone today. reports of delirium post Dilaudid. She also had delirium this AM
-continue oral Ativan. Stop IV Ativan. Monitor for agitation or oversedation
-PT/OT
# Parkinson's disease, she takes Sinemet extended release twice a day and short acting Sinemet 7 times daily
-Will continue her Sinemet at her current dosing schedule
-patient confirmed this dosing
Acute blood loss anemia, post-op
-no active signs of bleeding
-monitor. Hg stable
Leukocytosis
-suspect stress reaction from fracture then OR
-monitor off of antibiotics, no e/o infection
# Hypothyroidism, continue Synthroid
#Alopecia/hair loss
-She takes finasteride and minoxidil for this we will hold tonight
# Continue Lexapro
# Hyperlipidemia
-Continue rosuvastatin
DVT prophylaxis�asa 325
Full code
Anticipated Discharge: 24 - 48 hours
Subjective/Interval History
-
Date of Service: October 02, 2024
Objective Data
-
Labs:
Laboratory Results
10/02/24
03:44
WBC 16.0 H
Hgb 12.4
Hct 35.6 L
Plt Count 253
Sodium 145
Potassium 3.8
Chloride 113 H
Carbon Dioxide 27
BUN 13
Creatinine 0.6
Glucose 96
Calcium 9.4
Vital Signs:
Vital Signs
Temp Pulse Resp BP Pulse Ox
98.2 F 91 13 113/77 97
10/02/24 07:25 10/02/24 08:52 10/02/24 08:52 10/02/24 08:52 10/02/24 09:47
I&O
10/01/24 10/02/24 10/03/24
06:59 06:59 06:59
Intake Total 1135 / 1135 240 / 240
Balance 1135 / 1135 240 / 240
[2024-10-02] MEDS: SINEMET 25-100 2.5 TABLET PO ×3 (13:21→20:40)
--- NOTE | 2024-10-02 15:53 | CM ---
Addendum entered by Sera Quintanilla RN 10/03/24 11:54:
correction: TT message from Jacey Willoughby Clinical Reviewer: Nasrin Aleaxndra is approved 5 days skilled level 1(-10/06) auth#[id number].
Ambulance auth is [id number].
Addendum entered by Sera Quintanilla RN 10/02/24 16:58:
TT message from Jacey Willoughby Clinical Reviewer: Nasrin Alexandra is approved 5 days skilled level 1(-10/06) auth#[id number].
Ambulance auth is [id number].
Auth info forwarded to [facility] They can accept tomorrow. The ph for report [phone], fax [phone].
Plan follow up re; obtaining POA info and contact POA.
Plan [facility] SNF tomorrow by ambulance.
Original Note:
Patient with Hx Parkinsons Disease with Dx right hip Fx due to mechanical fall s/p right PROSPER. WBAT, hip precautions. Room air. Receiving Roxicodone prn. PT/OT recommend skilled rehab. Per nurse; confused, forgetful.
Met with patient and her friend Tiffanie Suarez, who resides at [facility] (ph [phone]);
discussed short term SNF for rehab and patient agrees to [facility]
She became confused/forgetful trying to explain who her relative Clayton is, listed as primary contact, and could not say what relation she was to the patient.
Spoke with Fernie Kline [facility]; they are able to accept the patient once insurance approves. The ph for report [phone], fax [phone].
Spoke with Tiffanie later by phone; she expressed concern that patient seems more confused which is new for her. Discussed that patient may need a caregiver at home after SNF if confusion continues. Tiffanie says patient has a POA, possibly a friend Pato,
and she is going to obtain patient's POA info for CM.
Request to Teddy Willoughbygm Clinical Reviewer, for insurance auth for [facility]. Fartun was unable to have request for SNF meet their criteria for approval. She has forwarded it to their biomedical instrument technician for review- not sure will get response today.
Plan follow up re; obtaining POA info and contact POA.
Plan [facility] SNF when auth obtained.
--- NOTE | 2024-10-02 18:32 | PTCARENOTE ---
pt oriented x 2 , seems slightly confused at times but reorients. tearful at times. see nursing assessment. ambulated with assist in room and hirsch with rolling walker. refused abductor pillow but is using own pillow to keep legs . aquacell
dressing to right hip intact. pt reports pain level of 2 at this time.
--- NOTE | 2024-10-02 20:40 | PTCARENOTE ---
Pt received from dayswyft nurse. Pt alert to self and place, disoriented to time. easily reoriented. NSR on monitor. satting 99% on RA. post op right hip neuro vascular checks WNL. oobx1 with RW. slow and steady gait. assessment as documented. call
light in reach.
[2024-10-03] VITALS (8 sets, daily range): BP systolic 129–176; BP diastolic 57–78
--- NOTE | 2024-10-03 02:16 | PTCARENOTE ---
Pt waking up from sleep frequently thinking its morning time. Pt attempted to get out of bed thinking she was in her house. Pt able to be reoriented. Pt educated on use of call paulino and importance of not ambulating by herself at this time. bed alarm
in use. call paulino in reach.
[2024-10-03] MEDS: SINEMET 25-100 1 TABLET PO ×3 (04:10→09:28)
[2024-10-03 04:32] LABS: % Basophils 0.4 % (0-2); % Eosinophils 0.6 % (0-6); % Immature Granulocytes 0.3 % (0-0.5); % Lymphocytes 15.4 % (20.5-51.1); % Monocytes 8.2 % (1.7-9.3); % Neutrophils 75.1 % (42.2-75.2); Absolute Basophils 0.1 10^3/uL (0-0.2); Absolute Eosinophils 0.1 10^3/uL (0-0.7); Absolute Lymphocytes 1.8 10^3/uL (1.2-3.4); Absolute Neutrophils 8.8 10^3/uL (1.4-6.5); Hemoglobin 11.7 g/dL (12.0-16.0); Mean Corp Hgb Conc. 35.5 g/dL (33.0-37.0); Mean Corpuscular Hgb 32.9 pg (27.0-31.0); Mean Corpuscular Volume 92.7 fL (81.0-99.0); Mean Platelet Volume 10.1 fL (7.4-10.4); Nucleated Red Blood Cells % 0 %; Platelet Count 261 10^3/uL (130-400); Red Blood Cell Count 3.56 10^6/uL (4.20-5.40); Red Cell Dist. Width 13.1 % (11.5-14.5); White Blood Cell Count 11.7 10^3/uL (4.8-10.8)
[2024-10-03 04:54] LABS: Urine Albumin 1+ (Neg - Trace); Urine Bilirubin Negative (Negative); Urine Character Clear (Clear); Urine Color Yellow; Urine Glucose Negative (Negative); Urine Ketone Negative (Negative); Urine Leukocyte Negative (Negative); Urine Nitrite Negative (Negative); Urine Occult Blood 1+ (Negative); Urine Urobilinogen Negative (Neg - 1+)
[2024-10-03 04:57] LABS: Blood Urea Nitrogen 15 mg/dl (7-17); Calcium 9.5 mg/dl (8.4-10.2); Carbon Dioxide 25 mmol/L (22-30); Chloride 110 mmol/L (98-107); Estimated Creatinine Clearance 68 ml/min; Glucose 108 mg/dl (70-99); Potassium 3.9 mmol/L (3.5-5.1); Sodium 141 mmol/L (135-145); eGFR > 60.00
[2024-10-03 06:28] LABS: Urine White Cell None Seen /HPF (0-5)
[2024-10-03] MEDS: CRESTOR 10 MG PO (07:22)
[2024-10-03] MEDS: LONITEN 2.5 MG PO (07:23)
[2024-10-03] MEDS: SENOKOT 17.2 MG PO (07:23)
[2024-10-03] MEDS: SYNTHROID 25 MCG PO (07:23)
[2024-10-03] MEDS: PROSCAR 5 MG PO (07:24)
[2024-10-03] MEDS: ASPIRIN 325 MG PO (07:24)
[2024-10-03] MEDS: COLACE 100 MG PO (07:48)
[2024-10-03] MEDS: TYLENOL 1000 MG PO (07:49)
[2024-10-03] MEDS: ATIVAN 1 MG PO (09:30)
[2024-10-03] MEDS: SINEMET CR 25-100 (EXTENDED RELEASE) 1 TABLET PO (09:30)
--- NOTE | 2024-10-03 11:19 | W.DS.TRANS ---
DC Summary - Water Treatment Specialist
-
Discharge Instructions:
Discharge Diagnosis/Procedures Right hip fracture status post PROSPER.
Parkinson's disease
Ambulatory dysfunction
Diet Regular
Activity As tolerated,With Walker
Additional Activity posterior hip precautions x6 weeks
Driving Restrictions No driving
Bathing Restrictions OK to Shower
Wound Care maintain dressing for 7-10 days; beatriz/sutures
out at 2 weeks from DOS if in place.
Instructions:
Stand-Alone Forms: Total Hip/Knee Replacement D/C
Changes to Home Medications: Yes
Discharge Medications:
DC Medications w/original date entered in Action
carbidopa ER 25 mg-levodopa 100 mg tablet,extended release 1 tab PO TID Neurological Condition 09/29/24
escitalopram oxalate 20 mg tablet (Lexapro) 20 mg PO DAILY Mental Health/Anxiety 09/29/24
finasteride 5 mg tablet 5 mg PO DAILY Urinary Issue 09/29/24
levothyroxine 25 mcg tablet (Synthroid) 25 mcg PO DAILY Thyroid 09/29/24
minoxidil 2.5 mg tablet 2.5 mg PO DAILY Blood Pressure 09/29/24
rosuvastatin 10 mg tablet 10 mg PO DAILY High Cholesterol 09/29/24
acetaminophen 500 mg tablet (Tylenol Extra Strength) 1,000 mg (2 x 500 mg) PO TID #30 tabs 10/03/24
aspirin 325 mg tablet 325 mg PO DAILY #30 tabs 10/03/24
carbidopa 25 mg-levodopa 100 mg tablet 1 tab PO DAILY #30 tabs 10/03/24
carbidopa 25 mg-levodopa 100 mg tablet 1 tab PO DAILY@0430 #30 tabs 10/03/24
carbidopa 25 mg-levodopa 100 mg tablet 1 tab PO DAILY@1000 #30 tabs 10/03/24
carbidopa 25 mg-levodopa 100 mg tablet 1 tab PO DAILY@2100 #30 tabs 10/03/24
carbidopa 25 mg-levodopa 100 mg tablet 1 tab PO DAILYPRN PRN muscle stiffness/spasm #30 tabs 10/03/24
carbidopa 25 mg-levodopa 100 mg tablet 2.5 tab PO DAILY@1300 #30 tabs 10/03/24
carbidopa 25 mg-levodopa 100 mg tablet 2.5 tab PO DAILY@1600 #30 tabs 10/03/24
carbidopa 25 mg-levodopa 100 mg tablet 2.5 tab PO DAILY@1900 #30 tabs 10/03/24
docusate sodium 100 mg capsule 100 mg PO BID #30 caps 10/03/24
lorazepam 1 mg tablet (Ativan) 1 mg PO DAILY PRN anxiety #14 tabs 10/03/24
oxycodone 5 mg tablet 5 mg PO Q4HPRN PRN severe pain #10 tabs 10/03/24
Home Medication Changes
ASA for DVT prophylaxis
Pending Results: No
--- NOTE | 2024-10-03 12:05 | CM ---
Patient with Hx Parkinsons Disease with Dx right hip Fx due to mechanical fall s/p right PROSPER. WBAT, hip precautions. Room air. Receiving Roxicodone prn. PT/OT recommend skilled rehab. Per nurse; forgetful.
Spoke with Dr Dougherty; patient is medically ready for d/c today.
Spoke with [facility]; they are able to accept the patient today. The for report [phone], fax [phone].
Met with patient and friends Tiffanie & Thalia; they agree with d/c today to [facility]. Patient seemed able to understand IMM and able to sign IMM however confused regarding date and time shown on clock in room. Tiffanie provided Medical POA document
indicating Keeta as POA - copy made and placed in chart, and sent with patient to SNF.
Spoke with Clayton Galloway, friend who is POA; she agrees with d/c today to [facility] by ambulance. Discussed that patient has been confused/forgetful while here and suggested she speak with SW at [facility] to determine patient's d/c needs after
SNF, as possibility patient may need supervision or caregiver at home. Clayton confirms patient can afford to hire a caregiver as needed and also friend Thalia, who is a teacher, is off for the summer and can assist her at home.
Plan [facility] SN[facility] today by ambulance.
[2024-10-03] MEDS: SINEMET 25-100 2.5 TABLET PO (12:32)
== END 2024-10-03 14:09 | DRG 522 ==
LOC: IMU 22:47
PROVIDERS: Student in an Organized Health Care Education/Training Program; ADMITTING PHYSICIAN Internal Medicine; ATTENDING PHYSICIAN Internal Medicine; CONSULT PHYSICIAN Orthopaedic Surgery; EMERGENCY PHYSICIAN Student in an Organized Health Care Education/Training Program; FAMILY PHYSICIAN Internal Medicine
PROC: 0SR903A Replacement of Right Hip Joint with Ceramic Synthetic Substitute, Uncemented, Open Approach (ICD-10-PCS; 2024-09-30)
PROC: 0QH604Z Insertion of Internal Fixation Device into Right Upper Femur, Open Approach (ICD-10-PCS; 2024-09-30)
DX: S72.001A Fracture of unspecified part of neck of right femur, initial encounter for closed fracture (principal); D62 Acute posthemorrhagic anemia; G20.A1 Parkinson's disease without dyskinesia, without mention of fluctuations; D72.829 Elevated white blood cell count, unspecified; E03.9 Hypothyroidism, unspecified; W10.9XXA Fall (on) (from) unspecified stairs and steps, initial encounter; E78.00 Pure hypercholesterolemia, unspecified; Z88.5 Allergy status to narcotic agent; F41.9 Anxiety disorder, unspecified; M85.80 Other specified disorders of bone density and structure, unspecified site; Z79.890 Hormone replacement therapy; Z79.899 Other long term (current) drug therapy; Z91.041 Radiographic dye allergy status
CPT/HCPCS: 70450; 73110; 73502; 73562; 80048; 80053; 81003; 81015; 85025; 85027; 86850; 86900; 86901; 93005; 96361; 96374; 96375; 97116; 97163; 97167; 97530; 97535; 99285; C1713; C1776

== ENCOUNTER → 2024-10-05 10:24 | Outpatient (REF) | payer OTHER, SELFPAY ==
[2024-10-05 11:54] LABS: Blood Urea Nitrogen 15 mg/dl (7-17); Calcium 8.9 mg/dl (8.4-10.2); Carbon Dioxide 25 mmol/L (22-30); Chloride 111 mmol/L (98-107); Glucose 103 mg/dl (70-99); Potassium 3.6 mmol/L (3.5-5.1); Sodium 143 mmol/L (135-145); eGFR > 60.00
[2024-10-05 11:56] LABS: % Basophils 0.4 % (0-2); % Eosinophils 0.9 % (0-6); % Immature Granulocytes 0.4 % (0-0.5); % Lymphocytes 13.5 % (20.5-51.1); % Monocytes 10.4 % (1.7-9.3); % Neutrophils 74.4 % (42.2-75.2); Absolute Eosinophils 0.1 10^3/uL (0-0.7); Absolute Lymphocytes 1.4 10^3/uL (1.2-3.4); Absolute Monocytes 1.1 10^3/uL (0.1-0.6); Absolute Neutrophils 7.5 10^3/uL (1.4-6.5); Hematocrit 32.3 % (37.0-47.0); Hemoglobin 11.4 g/dL (12.0-16.0); Mean Corp Hgb Conc. 35.3 g/dL (33.0-37.0); Mean Corpuscular Hgb 32.4 pg (27.0-31.0); Mean Corpuscular Volume 91.8 fL (81.0-99.0); Mean Platelet Volume 10.4 fL (7.4-10.4); Nucleated Red Blood Cells % 0 %; Platelet Count 333 10^3/uL (130-400); Red Blood Cell Count 3.52 10^6/uL (4.20-5.40); Red Cell Dist. Width 13.1 % (11.5-14.5); White Blood Cell Count 10.1 10^3/uL (4.8-10.8)
== END ==
LOC: OLABP 10:24
PROVIDERS: ATTENDING PHYSICIAN Family Medicine
DX: S72.001D Fracture of unspecified part of neck of right femur, subsequent encounter for closed fracture with routine healing (principal); W19.XXXD Unspecified fall, subsequent encounter; G20.A1 Parkinson's disease without dyskinesia, without mention of fluctuations; D64.9 Anemia, unspecified; E03.9 Hypothyroidism, unspecified; I65.9 Occlusion and stenosis of unspecified precerebral artery; E78.5 Hyperlipidemia, unspecified
CPT/HCPCS: 36415; 80048; 85025

== ENCOUNTER 2024-10-28 10:25 | Emergency (ER) | payer OTHER, SELFPAY ==
[2024-10-28] VITALS (8 sets, daily range): BP systolic 115–187; BP diastolic 46–81; PULSE 73; O2SAT 96; BMI 22.3
--- NOTE | 2024-10-28 11:55 | EDRN ---
Pt asked to to get up OOB to BR to void. Pt unable to stand or walk w/ walker at this time w/ assist of PCT. Pt voided on bedpan at this time w/ urine spec obtained and sent.
[2024-10-28] MEDS: ROXICODONE 2.5 MG PO ×3 (11:57→16:34)
--- NOTE | 2024-10-28 12:42 | ED.GENMED ---
History of Present Illness
General
Chief Complaint: Back Pain
Time Seen by Provider: 10/28/24 10:52
History of Present Illness
History of Present Illness:
see MDM
Past History
Past History
ED Past Medical History: Hypercholesterolemia, Hypothyroidism and Other (Parkinson's disease)
Social History
Tobacco: Non-smoker
Personal:
Living: with family
Employment: Employed
Phy Exam
Physical Exam
Physical Exam:
GENERAL: Alert , in no apparent distress, comfortable at rest
HEAD: NCAT
NECK: no midline tenderness, active ROM intact, no paraspinal muscle tenderness;
CARDIAC: Regular rate and rhythm, no edema
LUNGS: Clear breath sounds bilaterally, no acute respiratory distress, no wheezes/rales/rhonchi
ABDOMEN: Soft, without focal tenderness, no r/g, no cvat, normal bowel sounds, nondistended
NEUROLOGICAL: Alert and oriented, no focal neuro deficits, CN intact, 5/5 strength, sensation intact, ambulation slight limp left leg
SKIN: Warm and dry,
MUSCULOSKELETAL: No edema, well perfused. Normal inspection of the left hip, left leg
Patient has no tenderness to palpation of the hip, minimal tenderness in the SI joint
He has no pain with flexion of the left hip, external rotation, but with internal rotation has discomfort
Back: No midline tenderness, mild dextroscoliosis, slight left paraspinal muscle tenderness on exam, no swelling
negative straight leg raise Bilaterally
PSYCH: Normal and appropriate interaction.
Course
Orders/Labs/Results
Orders:
Orders
10/28/24 11:39
Oxycodone [Roxicodone] 2.5 mg PO NOW STA
10/28/24 11:50
Lumbar Spine Complete, 4 View [CR Lumbar Spine Comp Min 4 Vw*] Urgent
Comment:
Reason For Exam: lower back pain, fall 3 weeks ago
10/28/24 12:01
Urinalysis Reflex To Culture Urgent
Date Specimen was Collected: 10/28/24
Time Specimen was Collected: 12:00
Urine Microscopic Reflex Cult Urgent
10/28/24 13:24
Oxycodone [Roxicodone] 2.5 mg PO NOW STA
10/28/24 13:29
CT Abd/pel Without Iv Or Oral Urgent
Comment:
Reason For Exam: lower back pain, hematuria
10/28/24 13:50
CPK [Creatine Phosphokinase] Urgent
Complete Blood Count/With Diff Urgent
Comprehensive Metabolic Panel Urgent
10/28/24 14:59
Ketorolac [Toradol] 15 mg IV NOW STA
10/28/24 15:22
Pt Eval And Treat Urgent
Activity Level: Ambulate
10/28/24 16:27
Oxycodone [Roxicodone] 2.5 mg PO NOW STA
Abnormal Lab Results
10/28/24 10/28/24
12:01 13:50
RBC 3.46 L 10^6/uL
(4.20-5.40)
Hgb 11.1 L g/dL
(12.0-16.0)
Hct 32.7 L %
(37.0-47.0)
MCH 32.1 H pg
(27.0-31.0)
Abs Immat Gran (auto) 0.1 H 10^3/uL
(0-0.05)
Absolute Neuts (auto) 7.9 H 10^3/uL
(1.4-6.5)
Absolute Monos (auto) 1.0 H 10^3/uL
(0.1-0.6)
Lymphocytes % 15.6 L %
(20.5-51.1)
BUN 21 H mg/dl
(7-17)
Ur Occult Blood Reflex 1+ A
(Negative)
Urine Bacteria (Reflex) Few A
(Negative)
10/28/24 13:50
10/28/24 13:50
Vital Signs
Initial and Last Documented VS:
Initial Vital Signs
Temp Pulse Resp BP Pulse Ox
36.6 C 75 16 187/81 100
10/28/24 10:29 10/28/24 10:29 10/28/24 10:29 10/28/24 10:29 10/28/24 10:29
Last Documented Vital Signs
Temp Pulse Resp BP Pulse Ox
36.6 C 76 16 136/63 98
10/28/24 10:29 10/28/24 16:31 10/28/24 14:00 10/28/24 16:30 10/28/24 16:31
MDM/Problems Addressed
Differential Diagnosis Includes:
see MDM
MDM/Problems Addressed:
Note:
CHIEF COMPLAINT(S)
Severe back pain post-fall.
HISTORY OF PRESENT ILLNESS
The patient presented with severe back pain x 4 days. pt had ORIF of R hip on 10/01 after a mechanical fall down basement steps; some of the details of gustavo velasquez are fuzzy.
she had a bad reaction to dilaudid while hospitalized but apparently tolerated 1 dose oxycodone ok.
she hasn't needed narcotics since.
she went to [facility] for 2 weeks and now has been home for about 9 days
more Recently, the pain in the back radiates across the buttock, but theres no shooting pain down the legs, no numbness, and no weakness. Preoperative medications included acetaminophen and baclofen, and currently, the patient takes ibuprofen with
food, which was started after hip surgery and a subsequent rehabilitation stay. The back pain severity increased, preventing the patient from moving independently, particularly noted this morning. The pain does not resemble previous kidney stones
and is not associated with changes in urination.
ADDITIONAL HISTORY OBTAINED FROM SOURCES OTHER THAN THE PATIENT
According to a family member, the patient has been more active since returning home after rehabilitation for hip surgery. The fall led to hospitalization and rehabilitation. The family member observed that the patient was able to walk with
assistance from a walker previously, but the current heightened pain has impeded such mobility.
CHRONIC MEDICAL CONDITIONS SIGNIFICANTLY AFFECTING CARE
The patient has Parkinsons disease and is on carbidopa-levodopa, administered on schedule to manage symptoms effectively.
SOCIAL HISTORY
The patient lives at home and, before the recent fall, did not typically require a walker for mobility.
PHYSICAL EXAM
- Moving patient onto her side demonstrated tenderness in the lumbar region and around the tailbone area.
- The patient exhibits warmth in the area of reported pain.
- Nursing notes reviewed and vital signs reviewed.
PLAN
- Obtain a spinal X-ray to evaluate for potential vertebral compression fracture.
- Administer pain management medication, considering the patients intolerance to narcotics. Tramadol may be considered pending review.
- Patient will provide a urine sample if they need to urinate while in the facility to rule out other causes of pain.
- Educate patient and family on potential non-pharmacologic treatments for pain management if compression fracture is confirmed.
DIFFERENTIAL DIAGNOSIS
The Differential Diagnosis includes, in no particular order and is not limited to:
1. Vertebral Compression Fracture
2. Lumbar Strain or Sprain
3. Sciatica
4. Kidney Stone
5. Muscular Spasm
6. Disc Herniation
7. Osteoporosis-related Fracture
8. Sacroiliitis
9. Spinal Stenosis
10. Medication-related Side Effects (considering Parkinson�s disease medications)
10/28/2024 1314 PM
Patient's lumbar spine x-ray independently reviewed by me, some degenerative changes but no fractures. Patient was medicated with 2 and half milligrams of oxycodone orally which worked well for her bring her pain down to a 4 out of 10, she was able
to ambulate with a walker quite well. Pending UA will likely discharge home with prescription for Oxy and Colace.
pt's UA wa pos for blood
given h/o kidney stones, will CT
ct showed no kidney stone but s2 fracture nondisplaced
pt's pain returned despite oxy
givne toradol and another dose of oxy
pt offered admission but would be OBS
she declined sinc eshe was able to walk
PT did agree she did not meet inpatient
d/c home
low dose oxy if toelrated she can bump to 5 mg
*Pulse Oximetry
SaO2: 96
Oxygen Mode of Delivery: Room air
ED Attending Note
-
Portions of this chart may have been created with voice recognition software.� Occasional wrong word or��sound alike� substitutions may have occurred due to the inherent limitations of voice recognition software.
Discharge Plan
Departure
Patient Disposition: Home (Routine Discharge)
Date of Disposition: 10/28/24
Time of Disposition: 16:29
Patient with high blood pressure during this ER visit?: No
Condition: Fair
Covid-19: Not Applicable
Discharge Problem:
Back pain, Closed sacral fracture
Instructions: Low Back Pain (DC)
Prescriptions:
No Action
minoxidil 2.5 mg Tablet
2.5 mg PO DAILY
levothyroxine [Synthroid] 25 mcg Tablet
25 mcg PO DAILY
finasteride 5 mg Tablet
5 mg PO DAILY
escitalopram oxalate [Lexapro] 20 mg Tablet
20 mg PO DAILY
rosuvastatin 10 mg Tablet
10 mg PO DAILY
aspirin 325 mg Tablet
325 mg PO DAILY Qty: 30 0RF
docusate sodium 100 mg Capsule
100 mg PO BID Qty: 30 0RF
acetaminophen [Tylenol Extra Strength] 500 mg Tablet
1,000 mg PO TID Qty: 30 0RF
carbidopa-levodopa 25-100 mg Tablet Extended Release
1 tab PO BID@1000,1930
lorazepam 0.5 mg Tablet
0.5 mg PO QPMPRN PRN (Reason: anxiety)
ibuprofen [Advil] 200 mg Tablet
800 mg PO BID
baclofen 5 mg Tablet
5 mg PO BID
lorazepam [Ativan] 1 mg tablet
1 mg PO DAILY@1100
carbidopa-levodopa 25-100 mg tablet
2 tab PO QID@
oxycodone 5 mg tablet
2.5 mg PO TID
Referrals:
Allegra Barbosa MD [Family Provider, Family Practice] - Follow up in 2-3 days
Activity Restrictions/Additional Instructions:
YOUR CAT SCAN SHOWED A SACRAL FRACTURE (NONDISPLACED S2 FRACTURE). You can try oxycodone 2.5 mg (or 5 mg) in addition to your other pain medication, you could use this 2-3 times a day as needed. You do take Ativan at night and should avoid taking
oxycodone along with the Ativan at the same time. These can cause oversedation.
While taking oxycodone you should be on a stool softener like Metamucil or Colace.
YOUR CAT SCAN SHOWED SOME STOOL IN YOUR COLON TOO WHICH CAN CONTRIBUTE TO BACK PAIN
IF YOU GET CONSTIPATED, TRY MIRALAX
You may need more imaging of your back if your pain continues. Follow-up with your family doctor.
Return to the ER for fever, incontinence, numbness or tingling or weakness down your legs, inability to walk, pain that is not controlled with pain medication or any concerns
Interventions
Interventions:
*Risk Screen - Suicide Last Done: 10/28/24 10:29
*General Assessment Last Done: 10/28/24 10:29
*Neglect/Abuse Screening Last Done: 10/28/24 10:29
*ED- Fall Risk Assessment Last Done: 10/28/24 10:38
*ED COVID-19 Vaccine History Last Done: 10/28/24 10:38
*Nursing Disposition Last Done: 10/28/24 17:05
ED-Musculoskeletal Assessment Last Done: 10/28/24 10:42
Discharge Date and Time
Discharge Date/Time: 10/28/24 17:10
Print Language: JAPANESE
--- NOTE | 2024-10-28 13:00 | EDRN ---
Pt was verbally assisted to log roll and push off bed to sitting position and did it herself then stood up and then walked w/ walker from her room #38 to hallway after room #39 and back to room. Pt tolerated ambulation well. Pt sitting in chair in
room and getting dressed to leave.
[2024-10-28 13:24] LABS: Urine Character Clear (Clear)
[2024-10-28 13:47] LABS: Urine Red Blood Cell 0-2 /HPF (0-2); Urine White Cell None Seen /HPF (0-5)
[2024-10-28 13:58] LABS: Hematocrit 32.7 % (37.0-47.0); Hemoglobin 11.1 g/dL (12.0-16.0); Mean Corp Hgb Conc. 33.9 g/dL (33.0-37.0); Mean Corpuscular Volume 94.5 fL (81.0-99.0); Nucleated Red Blood Cells % 0 %; Platelet Count 289 10^3/uL (130-400); Red Cell Dist. Width 13.5 % (11.5-14.5)
[2024-10-28 14:27] LABS: ALT (SGPT) < 10 U/L (0-35); AST (SGOT) 22 U/L (14-36); Albumin 3.6 g/dl (3.5-5.0); Alkaline Phosphatase 125 U/L (38-126); Blood Urea Nitrogen 21 mg/dl (7-17); Calcium 9.1 mg/dl (8.4-10.2); Carbon Dioxide 26 mmol/L (22-30); Chloride 106 mmol/L (98-107); Estimated Creatinine Clearance 56 ml/min; Glucose 95 mg/dl (70-99); Potassium 3.8 mmol/L (3.5-5.1); Sodium 137 mmol/L (135-145); Total Protein 6.4 g/dl (6.3-8.2); eGFR > 60.00
[2024-10-28] MEDS: TORADOL 15 MG IV (16:27)
== END 2024-10-28 17:10 | disposition home or self-care (01) ==
LOC: EMR 10:25
PROVIDERS: Physician Assistant; EMERGENCY PHYSICIAN Emergency Medicine; FAMILY PHYSICIAN Family Medicine
DX: S32.19XA Other fracture of sacrum, initial encounter for closed fracture (principal); W10.9XXA Fall (on) (from) unspecified stairs and steps, initial encounter; M54.9 Dorsalgia, unspecified; G20.A1 Parkinson's disease without dyskinesia, without mention of fluctuations; Z79.82 Long term (current) use of aspirin; Z88.5 Allergy status to narcotic agent; Z91.041 Radiographic dye allergy status
CPT/HCPCS: 99284; 96374; 72110; 74176; 80053; 81003; 81015; 82550; 85025

== ENCOUNTER 2024-11-04 15:05 | Inpatient (IN) | payer OTHER, SELFPAY ==
[2024-10-31] VITALS (7 sets, daily range): BP systolic 128–181; BP diastolic 55–86; BMI 21.7
--- NOTE | 2024-10-31 11:49 | ED.MUSCINJ ---
HPI-Injury
General
Chief Complaint: Musculo-Skeletal Complaint
Source: patient
Exam Limitations: none
Time Seen by Provider: 10/31/24 11:23
History of Present Illness-Injury
Initial Injury comments:
69-year-old female with history of Parkinson's presents complaining of persistent lower back and buttock pain. She was here 2 days ago for the same and was found to have a fracture of her sacrum at the level of S2. She did well with physical
therapy at that time the added pain medication however she has not been doing well at home. Is extremely difficult for her to perform activities of daily living. She does have family friends or help but otherwise lives by herself. The pain is
persistent despite the oxycodone. She spoke with the orthopedic team on the phone last evening and they recommended increasing her ibuprofen. This did not help. No fevers. No chest pain or shortness of breath. No other complaints at this time
Past History
Past History
ED Past Medical History: Hypercholesterolemia, Hypothyroidism and Other (Parkinson's disease)
Social History
Tobacco: Non-smoker
Personal:
Living: with family
Employment: Employed
Phy Exam
Physical Exam
Physical Exam:
General: Well-appearing female no acute respiratory distress
HEENT: NC/AT
Heart: RRR
Lungs: Clear
Abd: soft, nontender
MSK: tender to lower lumbar spine
Skin: Warm, no rash
Injury Course
Orders/Labs/Results
Orders:
Orders
10/31/24 11:40
Case Management Consult ONCE
Case Management Consult: Discharge Planning
PT Consult [Pt Eval And Treat] Urgent
Activity Level: Ambulate
10/31/24 11:42
Complete Blood Count/With Diff Urgent
Comprehensive Metabolic Panel Urgent
Abnormal Lab Results
10/31/24
11:42
RBC 3.54 L 10^6/uL
(4.20-5.40)
Hgb 11.3 L g/dL
(12.0-16.0)
Hct 33.3 L %
(37.0-47.0)
MCH 31.9 H pg
(27.0-31.0)
Absolute Monos (auto) 0.7 H 10^3/uL
(0.1-0.6)
Lymphocytes % 18.9 L %
(20.5-51.1)
Chloride 109 H mmol/L
(98-107)
BUN 21 H mg/dl
(7-17)
AST 45 H U/L
(14-36)
10/31/24 11:42
10/31/24 11:42
MDM/Problems Addressed
Differential Diagnosis Includes:
Patient with known sacral fracture. Home life has become too difficult. She was offered an evaluation or even an admission last visit however she decided to go home. The pain medicine does not seem to be helping her get around. Is becoming more
difficult. Will consult PT again for their evaluation check basic labs anticipate she will be able to go home.
*Pulse Oximetry
SaO2: 98
Oxygen Mode of Delivery: Room air
Patient hypoxic: no
*Critical Care Note
Total Time (30-74mins, 75-104mins- exclusive of procedures): Not Applicable
Update Note
Update Note:
Patient seen by physical therapy. She did not do well physical therapy. Seen by case management. No placement for today. Will admit to hospital for ongoing pain secondary to sacral fracture
ED Attending Note
-
Portions of this chart may have been created with voice recognition software.� Occasional wrong word or��sound alike� substitutions may have occurred due to the inherent limitations of voice recognition software.
Discharge Plan
Departure
Patient Disposition: Admit
Date of Disposition: 10/31/24
Time of Disposition: 14:12
Presentation/result/management discussed w/ accepting MD/DO: Hospitalist
Discharge Problem:
Closed sacral fracture
Prescriptions:
No Action
carbidopa-levodopa 25-100 mg Tablet Extended Release
1 tab PO TID
minoxidil 2.5 mg Tablet
2.5 mg PO DAILY
levothyroxine [Synthroid] 25 mcg Tablet
25 mcg PO DAILY
Rx Instructions:
20
finasteride 5 mg Tablet
5 mg PO DAILY
escitalopram oxalate [Lexapro] 20 mg Tablet
20 mg PO DAILY
rosuvastatin 10 mg Tablet
10 mg PO DAILY
aspirin 325 mg Tablet
325 mg PO DAILY Qty: 30 0RF
docusate sodium 100 mg Capsule
100 mg PO BID Qty: 30 0RF
carbidopa-levodopa 25-100 mg Tablet
1 tab PO DAILY@0430 Qty: 30 0RF
oxycodone 5 mg Tablet
5 mg PO Q4HPRN PRN (Reason: severe pain) Qty: 10 0RF
carbidopa-levodopa 25-100 mg Tablet
1 tab PO DAILY Qty: 30 0RF
carbidopa-levodopa 25-100 mg Tablet
1 tab PO DAILY@1000 Qty: 30 0RF
carbidopa-levodopa 25-100 mg Tablet
2.5 tab PO DAILY@1300 Qty: 30 0RF
carbidopa-levodopa 25-100 mg Tablet
2.5 tab PO DAILY@1600 Qty: 30 0RF
carbidopa-levodopa 25-100 mg Tablet
2.5 tab PO DAILY@1900 Qty: 30 0RF
carbidopa-levodopa 25-100 mg Tablet
1 tab PO DAILY@2100 Qty: 30 0RF
carbidopa-levodopa 25-100 mg Tablet
1 tab PO DAILYPRN PRN (Reason: muscle stiffness/spasm) Qty: 30 0RF
acetaminophen [Tylenol Extra Strength] 500 mg Tablet
1,000 mg PO TID Qty: 30 0RF
lorazepam [Ativan] 1 mg Tablet
1 mg PO DAILY PRN (Reason: anxiety) Qty: 14 0RF
Rx Instructions:
pt takes daily at 11am
oxycodone 5 mg tablet
5 mg PO BID PRN (Reason: Pain) Qty: 12 0RF
Referrals:
Karolina Guo NP [Family Provider, Internal Medicine]
Interventions
Interventions:
*Risk Screen - Suicide Last Done: 10/31/24 11:17
*General Assessment Last Done: 10/31/24 11:17
*Neglect/Abuse Screening Last Done: 10/31/24 11:17
ED-Musculoskeletal Assessment Last Done: 10/31/24 11:29
Discharge Date and Time
Print Language: LUX[place]
[2024-10-31 11:56] LABS: Hematocrit 33.3 % (37.0-47.0); Hemoglobin 11.3 g/dL (12.0-16.0); Mean Corp Hgb Conc. 33.9 g/dL (33.0-37.0); Mean Corpuscular Volume 94.1 fL (81.0-99.0); Nucleated Red Blood Cells % 0 %; Platelet Count 333 10^3/uL (130-400); Red Cell Dist. Width 13.5 % (11.5-14.5)
[2024-10-31 12:15] LABS: ALT (SGPT) < 10 U/L (0-35); AST (SGOT) 45 U/L (14-36); Albumin 3.8 g/dl (3.5-5.0); Alkaline Phosphatase 109 U/L (38-126); Blood Urea Nitrogen 21 mg/dl (7-17); Calcium 9.2 mg/dl (8.4-10.2); Carbon Dioxide 24 mmol/L (22-30); Chloride 109 mmol/L (98-107); Estimated Creatinine Clearance 65 ml/min; Glucose 95 mg/dl (70-99); Potassium 3.8 mmol/L (3.5-5.1); Sodium 140 mmol/L (135-145); Total Protein 6.5 g/dl (6.3-8.2); eGFR > 60.00
--- NOTE | 2024-10-31 12:31 | CM ---
Reviewed the chart notes and spoke with the patient at the bedside. The patient was recently hospitalized for fx hip (09/30-10/03) and discharged to [facility] for short term rehab. The patient resides alone in a one story home with two steps to enter.
The patient has a rolling walker, shower chair, shower rail. The patient is currently with [facility]. The patient confirmed pharmacy of choice is [facility]. CM continues to be available to patient/family and is monitoring medical
plan for needs at discharge.
Plan: Discharge plan will depend on the patient's progress.
--- NOTE | 2024-10-31 14:16 | HPS.HSE ---
Family Physician
-
Family Physician: Karolina Guo
Chief Complaint
-
lower back/buttock pain
History of Present Illness
Patient is a 69-year-old female with past medical history significant for Parkinson's disease, hypercholesterolemia, hypothyroid and depression/anxiety who presented to [facility] ED for evaluation of persistent lower back and buttock pain for 4 days.
Patient was seen in ED a few days ago for same complaint and found to have a fracture of her sacrum at the level of S2. She was discharged home with oxycodone 2.5mg that has been effective in some relief but not getting enough relief. Pain is
interfering with ability to complete all activities of daily living. Patient denies any recent illness, fever, chills, cough, shortness of breath, chest pain, nausea, vomiting, constipation, diarrhea or urinary symptoms.
Medical History
Past Medical History
Past Medical History: Reports Other
Additional Past Medical History:
Parkinson's disease
hypercholesterolemia
hypothyroid
depression/anxiety
Past Surgical History: Reports Other
Additional Past Surgical History:
Right wrist status post metal plate and screws transfixing an old healed fracture of the distal right radius
Bilateral tubal ligation(1977)
breast calcifications
Bilateral tubal ligation(1977)
s/p LEEP Dr. Joy ([place])
Cataracts 2023
Social History
Tobacco: Non-smoker
Personal:
Living: With Family
Family History
Family History: Not pertinent
Allergies / Home Medications
Allergies reflects when Allergies were last updated in [facility].
Home Medications with original date entered in [facility]
Allergy/Medication List:
Allergies
Allergy/AdvReac Type Severity Reaction Status Date / Time
Iodinated Contrast Media (IV Allergy Intermediate Rash Verified 10/31/24 11:17
Dye, Iodine Containing)
morphine (Morphine) Allergy Intermediate Rash Verified 10/31/24 11:17
Home Medications
escitalopram oxalate 20 mg tablet (Lexapro) 20 mg PO DAILY Mental Health/Anxiety 09/29/24
finasteride 5 mg tablet 5 mg PO DAILY Urinary Issue 09/29/24
levothyroxine 25 mcg tablet (Synthroid) 25 mcg PO DAILY Thyroid 09/29/24
minoxidil 2.5 mg tablet 2.5 mg PO DAILY Blood Pressure 09/29/24
rosuvastatin 10 mg tablet 10 mg PO DAILY High Cholesterol 09/29/24
acetaminophen 500 mg tablet (Tylenol Extra Strength) 1,000 mg (2 x 500 mg) PO TID #30 tabs 10/03/24
aspirin 325 mg tablet 325 mg PO DAILY #30 tabs 10/03/24
docusate sodium 100 mg capsule 100 mg PO BID #30 caps 10/03/24
baclofen 5 mg tablet 5 mg PO BID 10/31/24
carbidopa 25 mg-levodopa 100 mg tablet 2 tab PO QID@07,10,14,0 10/31/24
carbidopa ER 25 mg-levodopa 100 mg tablet,extended release 1 tab PO BID@1000,0 10/31/24
ibuprofen 200 mg tablet (Advil) 800 mg PO BID 10/31/24
lorazepam 0.5 mg tablet 0.5 mg PO QPMPRN PRN anxiety 10/31/24
lorazepam 1 mg tablet (Ativan) 1 mg PO DAILY@1100 anxiety 10/31/24
oxycodone 5 mg tablet 2.5 mg PO TID 10/31/24
Review of Systems
-
History Source: Patient
Constitutional: Reports No Symptoms
EENT: Reports No Symptoms
Respiratory: Reports No Symptoms
Cardiac: Reports No Symptoms
Abdomen/GI: Reports No Symptoms
: Reports No Symptoms
Musculoskeletal: Reports Other (pain to lower back and sacral area)
Skin: Reports No Symptoms
Neurological: Reports No Symptoms
Endocrine: Reports No Symptoms
Hematologic/Lymphatic: Reports No Symptoms
Psych: Reports No Symptoms
Physical Exam
Vital Signs
Vital Signs
Temp Pulse Resp BP Pulse Ox
98.3 F 75 15 147/67 96
10/31/24 11:16 10/31/24 14:00 10/31/24 14:00 10/31/24 14:00 10/31/24 14:00
Physical Exam
General: Well Developed, Well Nourished and No Apparent Distress
HEENT: NormoCephalic, Moist mucous membranes and Atraumatic
Respiratory: Clear and Non Labored Respirations
Cardiac: S1/S2 and Regular Rhythm; No Murmur, Rub or Gallop
GI: Soft, Non Tender, Non Distended and Normal Bowel Sounds
Rectal: Deferred by Provider
Genito-urinary: Deferred by me
Musculoskeletal: No Clubbing, No Cyanosis, No Edema and Other (lower lumbar back panel padder )
Skin: IV/Catheter Site
Neuro: Nonfocal/grossly intact
Psych: Calm and Intact Judgment/Insight
Laboratory Results
-
10/31/24 11:42
10/31/24 11:42
Laboratory Results
Total Bilirubin 0.5 mg/dl (0.2-1.3) 10/31/24 11:42
AST 45 U/L (14-36) H 10/31/24 11:42
ALT < 10 U/L (0-35) 10/31/24 11:42
Alkaline Phosphatase 109 U/L (38-126) 10/31/24 11:42
Data Reviewed
-
CT Scan: Report Reviewed by me (Abd/Pel (10/28/2024): Nondisplaced fracture of the sacrum at the level of S2. No hydronephrosis or nephroureterolithiasis.)
Lab Data: Labs Reviewed by me
Impression/Plan
-
IMPRESSION/PLAN:
#closed sacral fracture
Abd/Pel CT (10/28/24): Nondisplaced fracture of the sacrum at the level of S2.
No hydronephrosis or nephroureterolithiasis.
- Admit to med/surg
- Consult PT/OT
- Consult case management
- pain regimen
#Parkinson's disease
- continue carbidopa-levodopa
#hypercholesterolemia
- continue rosuvastatin
#hypothyroid
- continue levothyroxine
#depression/anxiety
- continue escitalopram and lorazepam
Code status: DNR
DVT prophylaxis: Lovenox sq
[2024-10-31] MEDS: ROXICODONE 5 MG PO ×3 (15:10→23:57)
--- NOTE | 2024-10-31 15:20 | W.PN.UPDATE ---
Update Note
Progress Note Update
Seen and examined and discussed with nurse practitioner in detail I am in agreement with plan and management mentioned by nurse practitioner.
69-year-old female presented to the hospital complaining of Persistent lower back pain for 4-day, seen in the ER few days ago for the same complaint fracture of sacrum diagnosed, patient discharged on low-dose oxycodone 2.5 mg scheduled came back
because of the poorly controlled pain
No any other symptom or complaint.
Vital signs reviewed
Physical exam:
General: Awake, alert and oriented x3, not in distress and holds appropriate conversation.
HEENT: No active discharge, ecchymosis or bruising, moist lips, tongue and mucous membrane.
Eyes: No discharge or red conjunctiva, no nystagmus, pupils are reactive and equal
Neck:Supple, no JVD no bruit no goiter.
Respiratory: Normal AP contour and diameter, normal chest wall movement, normal respiratory effort, no respiratory distress,
Lungs: Good air entry bilaterally, no wheezing or rhonchi, no rales or crackles
Heart: S1, S2 regular, normal rate, no added sound.
Gastrointestinal: Positive bowel sounds, soft, nontender, no guarding or rigidity or organomegaly
Musculoskeletal: Tenderness in the lower back,, no chest wall abnormality or tenderness. All joints and extremities have good range of motion, no muscle tenderness or any joint swelling or tenderness.
Extremities: No pitting edema, good peripheral pulses, good range of motion
Workup including labs, imaging, EKG and archive reviewed.
Assessment and plan:
Closed sacral fracture:
Seen on the CAT scan October 28, 2024 nondisplaced fracture of the sacrum at level S2
PT OT
Pain management and Toradol and oxycodone as needed
rehab department manager working.
Acute lower back pain: Manage as above
Hypothyroidism: Continue levothyroxine
The rest of the assessment and management as per detailed history and physical
All discussed with the patient and the family
Discussed with nurse practitioner
[2024-10-31] MEDS: TORADOL 15 MG IV ×2 (16:39→22:46)
[2024-10-31] MEDS: LOVENOX SC (17:06)
[2024-10-31] MEDS: LIORESAL 5 MG PO (19:45)
[2024-10-31] MEDS: SINEMET 25-100 2 TABLET PO (19:45)
[2024-10-31] MEDS: SINEMET CR 25-100 (EXTENDED RELEASE) 1 TABLET PO (19:45)
[2024-10-31] MEDS: COLACE 100 MG PO (19:46)
[2024-11-01 00:04] VITALS: BP 119/67
[2024-11-01 03:37] VITALS: BP 166/87
[2024-11-01] MEDS: ROXICODONE 5 MG PO ×2 (03:59→10:05)
[2024-11-01] MEDS: SYNTHROID 25 MCG PO (05:12)
[2024-11-01] MEDS: SINEMET 25-100 2 TABLET PO ×4 (06:29→20:14)
[2024-11-01] MEDS: TORADOL 15 MG IV (06:31)
[2024-11-01 08:16] VITALS: BP 120/83
[2024-11-01] MEDS: LEXAPRO 20 MG PO (08:18)
[2024-11-01] MEDS: CRESTOR 10 MG PO (08:18)
[2024-11-01] MEDS: PROSCAR 5 MG PO (08:18)
[2024-11-01] MEDS: LIORESAL 5 MG PO ×2 (08:18→20:14)
[2024-11-01] MEDS: ASPIRIN 325 MG PO (08:18)
[2024-11-01] MEDS: LONITEN 2.5 MG PO (08:19)
[2024-11-01] MEDS: COLACE 100 MG PO ×2 (08:19→20:14)
[2024-11-01] MEDS: SINEMET CR 25-100 (EXTENDED RELEASE) 1 TABLET PO ×2 (10:34→20:42)
--- NOTE | 2024-11-01 12:19 | W.PN.HOSP.TC ---
Today's Communication/Plan
-
increase pain regimen
PT/OT
DC ready, CM aware
Assessment / Plan
Assessment / Plan
Physical Exam
General: Well Developed, Well Nourished and No Apparent Distress
HEENT: NormoCephalic, Moist mucous membranes and Atraumatic
Respiratory: Clear and Non Labored Respirations
Cardiac: S1/S2 and Regular Rhythm; No Murmur, Rub or Gallop
GI: Soft, Non Tender, Non Distended and Normal Bowel Sounds
Rectal: Deferred by Provider
Genito-urinary: Deferred by me
Musculoskeletal: No Clubbing, No Cyanosis, No Edema and Other (lower lumbar back winder )
Skin: IV/Catheter Site
Neuro: Nonfocal/grossly intact
Psych: Calm and Intact Judgment/Insight
#Closed sacral fracture
#Pain
Abd/Pel CT (10/28/24): Nondisplaced fracture of the sacrum at the level of S2.
No hydronephrosis or nephroureterolithiasis.
- Admit to med/surg
- PT/OT
- Consult case management
- pain regimen - increase oxycodone to 10mg
#Parkinson's disease
- continue carbidopa-levodopa
#hypercholesterolemia
- continue rosuvastatin
#hypothyroid
- continue levothyroxine
#depression/anxiety
- continue escitalopram and lorazepam
Anticipated Discharge: Within 24 hours
Subjective/Interval History
-
Date of Service: November 01, 2024
pain still needs to be better controlled, awaiting PT
Objective Data
-
Vital Signs:
Vital Signs
Temp Pulse Resp BP Pulse Ox
97.6 F 77 14 120/83 94
11/01/24 08:16 11/01/24 08:16 11/01/24 08:16 11/01/24 08:19 11/01/24 08:16
I&O
10/31/24 11/01/24 11/02/24
06:59 06:59 06:59
Intake Total 120 / 120
Output Total 550 / 550
Balance -430 / -430
Review of Systems
-
History Source: Patient
All other systems: Not reviewed unless documented
Physical Exam
-
General: No Apparent Distress
HEENT: PERRLA
Respiratory: Clear to Auscultation; Negative Wheezes
Cardiac: Regular Rhythm and S1/S2
GI: Soft and Nontender
Musculoskeletal: No Edema
Skin: Warm and Dry; Negative Rash
Neuro: AO x 3
Psych: Anxious
Data Reviewed
-
Diagnostic Radiology: Report Reviewed by me
Labs: Labs Reviewed by me
[2024-11-01] MEDS: ATIVAN 1 MG PO (12:51)
[2024-11-01] MEDS: TYLENOL 650 MG PO ×4 (12:51→23:47)
[2024-11-01 15:21] VITALS: BP 153/73
--- NOTE | 2024-11-01 15:25 | CM ---
Chart reviewed. Therapy rec SNF for patient, however, patient and family is interested in acute rehab.
Jennifer/Ray liaison reviewed yesterday, not sure if patient will be able to tolerate program due to pain level as of yesterday
Spoke w/ patient bedside, patient shared she still has pain but was able to do a lap in the hallway and did some activity in the room. Patient shared that if she is denied by insurance for acute, she will d/c home w/ PT as she does not want to
explore another SNF.
Per nurse, patient is more mobile today, not much complaint of pain
TT hospitalist for physiatry assessment order. Will need OT eval order for insurance auth
Patient currently admitted obs. CONNELLY form verbally reviewed, copy provided, copy on chart
Plan: Acute rehab vs home w/ PT
Await physiatry assessment
[2024-11-01] MEDS: LOVENOX SC (17:27)
--- NOTE | 2024-11-01 17:29 | CON.MD ---
Consultation - Medical
-
Chief Complaint:�Sacral fracture
�
History of Present Illness:�69-year-old female with PMH (as below) presented to [facility] on 10/31/2024 with persistent pain and limited mobility. She had been evaluated 4 days prior and found to have a sacral fracture at S2 and discharged
home with oxycodone. Patient had another fall on 09/29/2024 after falling down the basement steps suffering a right proximal femur fracture status post right total hip arthroplasty by Dr. Yarbrough on 09/30/2024. Overall still has significant pain
with weightbearing activities such as lifting the leg, walking. Still has some pain even with medications, does not want to be sedated with more medications.
�
Past Medical History:�Parkinson's disease, hypercholesterolemia, hypothyroid, and depression/anxiety
Procedure History:�Right wrist ORIF of old distal radius fracture, bilateral tubal ligation 1977, breast calcification removal, bilateral tubal ligation 1977, LEEP, cataracts 2023
Family History:�None pertinent
�
Social History:�
Functional Level Premorbidly:�Independent with all activities�
Functional Level Currently:�Min assist bed mobility, supervision for transfers, supervision ambulating 150 feet x 1 with rolling walker.
�
Tobacco:�Denies�
Alcohol:�Denies�
Drug use:�Denies�
�
Lives with:�Alone
24-hour assistance available:�No
Number of floors:�1
# steps to enter:�0
Driving:�Yes prior to hip fracture
Occupation:�Retired
�
�
Allergies:�
Allergy/AdvReac Type Severity Reaction Status Date / Time
Iodinated Contrast Media (IV Allergy Rash Verified 10/31/24 16:24
Dye, Iodine Containing)
morphine (Morphine) Allergy headache Verified 10/31/24 16:24
and rash
�
Review of Systems:�
Constitutional: (x) abNormal _fatigue
Eye: (x) Normal _
Ear/Nose/Throat: (x) Normal _
Respiratory: (x) Normal _
Cardiovascular: (x) Normal _
Gastrointestinal: (x) Normal _no changes in bowel, denies constipation
Genitourinary: (x) Normal _no changes in bladder
Musculoskeletal: (x) abNormal _sacral pain with activities limiting activity and tolerance to activity
Integumentary: (x) Normal _
Neurologic: (x) Normal _denies any numbness or tingling concerns
Psychiatric: (x) Normal _
Endocrine: (x) Normal _
Hematologic/Lymphatic: (x) Normal _
Allergic/Immunologic: (x) Normal _
�
Medications:�
Active Current Visit Medication List
Category Date Time Status
Acetaminophen [Tylenol] Med 11/01/24 11:00 Active
650 mg PO Q4H
Aspirin Med 11/01/24 08:00 Active
325 mg PO DAILY
Baclofen [Lioresal] Med 10/31/24 20:00 Active
5 mg PO BID
Carbidopa/Levodopa Cr [Sinemet Cr 25-100 (Extended Med 10/31/24 19:30 Active
Release)]
1 tablet PO BID@999,1929
Carbidopa/Levodopa [Sinemet 25-100] Med 10/31/24 19:30 Active
2 tablet PO QID@07,10,14,1929
Docusate Sodium [Colace] Med 10/31/24 20:00 Active
100 mg PO BID
Enoxaparin Sodium [Lovenox] Med 10/31/24 18:00 Active
40 mg SC QPM
Escitalopram Oxalate [Lexapro] Med 11/01/24 08:00 Active
20 mg PO DAILY
Finasteride [Proscar] Med 11/01/24 08:00 Active
5 mg PO DAILY
Flush (0.9% Sodium Chloride) [Flush (Nss)] Med 10/31/24 17:00 Active
See Dose Instructions IV PER PROTOCOL
Levothyroxine [Synthroid] Med 11/01/24 06:00 Active
25 mcg PO DAILY @ 0600
Lorazepam [Ativan] Med 10/31/24 16:51 Active
0.5 mg PO QPMPRN PRN anxiety
Lorazepam [Ativan] Med 11/01/24 11:00 Active
1 mg PO DAILY@1100
Minoxidil [Loniten] Med 11/01/24 08:00 Active
2.5 mg PO DAILY
Ondansetron Injectable [Zofran] Med 11/01/24 10:50 Active
4 mg IV Q6HPRN PRN
Oxycodone [Roxicodone] Med 11/01/24 10:50 Active
10 mg PO Q4HPRN PRN
Rosuvastatin Calcium [Crestor] Med 11/01/24 08:00 Active
10 mg PO DAILY
�
Vitals:�
Temp Pulse Resp BP Pulse Ox
98.1 F 91 16 153/73 96
11/01/24 15:21 11/01/24 15:21 11/01/24 15:21 11/01/24 15:21 11/01/24 15:21
Height 5 ft 1 in
Actual Weight 51.965 kg
Body Mass Index (BMI) 21.7
�
Physical Exam:�
General Appearance/Observation: Well-developed, well-nourished female in no apparent distress.�
Pain/Comfort Assessment: Sacral pain which can be pretty severe with activity
Mood/Affect: Appropriate�
�
Integumentary/Operative Site:�Right lateral hip incision healing well
Eyes: Conjunctiva/Lids: normal��� Pupils: pupils equal round and reactive to light
Ears/Nose/Throat: oral mucosa moist, throat clear.������������ Lips/Teeth/Gums: normal
Cardiovascular: Heart: regular, no murmur�
Pulses: dorsalis pedis 2+ bilaterally�
Respiratory: Respiratory Effort/Chest Expansion: normal������ Auscultation: Clear to auscultation bilaterally
Gastrointestinal: abdomen not tender, no distension, normal abdominal bowel sounds
Genitourinary: No Lewis�
Extremities:�Edema: None�Cyanosis: None�Trophic�changes: None
�
Neurology Exam:
Orientation: Alert, Oriented to self, Time, Place�
Memory: Intact for recent medical concerns
Comprehension: Intact
Two step command: Intact
Cranial Nerves:
�� CNII:�Pupillary light reflex: Intact���Visual Field: Intact
�� CN III, IV, : Extraocular muscles: Intact�
�� CN V:�Facial Sensation�at�Forehead: Intact,�Maxilla: Intact,�Mandible: Intact
�� CN VII:�Facial movement: Symmetric
�� CN VIII:�Hearing: Normal
�� CN IX/X:�Speech & swallow: Normal,�Position of Uvula: Midline
�� CN XI:�Shoulder shrug: Symmetric
�� CN XII:�Tongue protrusion: Midline
Sensory:
�� Light touch: Intact in bilateral upper and lower extremities
�
Reflexes:
�� Biceps: 2+ bilaterally
�� Brachioradialis: 2+ bilaterally
�� Triceps: 2+ bilaterally
�� Patellar: 0 bilaterally
�� Achilles: 0 bilaterally
�� Babinski: Down going bilaterally
�� Clonus: None
�� Kathleen: Negative bilaterally�
Cerebellar: Dysmetria/Ataxia: None�
Musculoskeletal:Motor: (Manual muscle scale 0-5)�
Muscle SA EF WE EE FF FA HF KE DF EHL PF
Right� 5 5 5 5 2+ 4 5 5 5
Left 5 5 5 5 3 5 5 5 5
�
Tone: Normal in all extremities�
Range of Motion: Passively within functional limits in all extremities�except for right hip not tested with hip precautions
�
Lab Results
Laboratory Data
10/31/24 11:42
10/31/24 11:42
Total Bilirubin 0.5 mg/dl (0.2-1.3) 10/31/24 11:42
AST 45 U/L (14-36) H 10/31/24 11:42
ALT < 10 U/L (0-35) 10/31/24 11:42
Alkaline Phosphatase 109 U/L (38-126) 10/31/24 11:42
Total Protein 6.5 g/dl (6.3-8.2) 10/31/24 11:42
Albumin 3.8 g/dl (3.5-5.0) 10/31/24 11:42
�
Diagnostic Results:�as per HPI�
�
Assessment
69-year-old F PMH (Parkinson's disease, hypercholesterolemia, hypothyroid, and depression/anxiety) presented to [facility] on 10/31/2024 with persistent pain and limited mobility. She had been evaluated 4 days prior and found to have a
sacral fracture at S2 and discharged home with oxycodone. Patient had another fall on 09/29/2024 after falling down the basement steps suffering a right proximal femur fracture status post right total hip arthroplasty by Dr. Yarbrough on 09/30/2024.
��
Plan�
PM&R�PT/OT to increase independence with ADLs, improve balance, coordination, endurance, strength, mobility, community reintegration, decreased burden of care on others and family education.�
�
Sacral fracture: Pain control with oxycodone and baclofen, activity as tolerated
Parkinson's disease: Sinemet
Right hip fracture s/p total hip arthroplasty: Monitor incision, pain control, hip precautions/incision care per orthopedics�
-Baclofen for spasms, oxycodone for pain
�
HLD: Statin�
Hypothyroidism: Levothyroxine
Normocytic anemia: Stable in the 11 range.� Monitor.�
Alopecia: Minoxidil
Anxiety/depression: Lexapro 20 mg daily, Ativan daily at 1100 and as needed at night. Adjust medications as needed.�
Skin: monitor for pressure sores/rashes/lesions.�
Pain: acetaminophen or oxycodone as needed.�
Bowel: Colace and Senna, PRN bisacodyl.�
Bladder: Time void, PVRs, PRN straight cath.�
DVT Prophylaxis: Mechanical. Patient appears to be on aspirin full dose and Lovenox.� Please confirm need for both medications. Likely was on full dose aspirin for DVT prophylaxis last month after hip replacement.
Pulmonary: Incentive spirometry�
Safety: Continue to reinforce assistance with all transfers.�
Code Status:� Full code
Dispo�(date/plan/equipment needs): Home with family care.� Social history reviewed.�
Functional and Medical Goals:�Modified Independent with ADL�s, ambulation, transfers�
Discharge Destination:�[facility] facility, patient continues to have significant pain and I do not feel that doing an acute inpatient rehabilitation program will benefit her and will potentially cause more pain and difficulty completing tasks.
She should go to a skilled rehab program followed by an outpatient physical therapy program to help with her strength and coordination.
�
Summary of recommendations:
-�Discharge Destination:�[facility] facility
DVT Prophylaxis: Mechanical. Patient appears to be on aspirin full dose and Lovenox.� Please confirm need for both medications. Likely was on full dose aspirin for DVT prophylaxis last month after hip replacement.�
�
Thank you for allowing me to care for your patient. Please contact me with any questions or concerns.
Consultation
-
Date/Time Consultation Performed: 11/02/2024
Requesting Provider: Dr. Vin Chang
Performing Provider: Dr. Efren Guallpa
Reason for Consultation: Sacral fracture
--- NOTE | 2024-11-01 17:45 | PTCARENOTE ---
Patient having change of mental status. Disoriented to place, time,and situation. Patient unable to follow commands, walking around halls and states she wants to leave. Patient called family friend, Thalia, who states that she is having a reaction to
her medication adjustment, ativan. Patient is fully clothed and walking with walker states she is leaving and is unable to be redirected. MD Carey notified of change of event. new orders placed. will continue to monitor.
--- NOTE | 2024-11-01 17:50 | PTCARENOTE ---
11/01- Patient has been escalating over the past hour as observed by this RN. Patient wandered out of room with walker. She is AAOX1 to self. She refused to let us help her back into her room and is unable to be de-escalated. Using calming
speech, attempted de-escalation but unsuccessful. Patient believes she's here for a seminar and has the right to leave, and we are holding her against her will. She wandered to the back of 4W hallway attempting to leave the back exit door
stairwell. When we blocked the door without touching her, she threatened to pull the fire alarm. She then called 911 on her cell phone. She reported that we are holding her against her will. We discussed with rotary pump operator that patient is
currently confused and escalated. We are attempting to gather AMA paperwork and to get her doctor up here, but she refused. She is also refusing to let us take out her IV or get a ride. 911 verbalized understanding. She hung up and attempted to
throw walker aside. She has an unsteady gait. We are standby assist, and she accuses us of forcing her and touching her. She then wandered and attempted to call 911 again. We called Abby presley.
--- NOTE | 2024-11-01 18:00 | PTCARENOTE ---
maddy presley called for patient roaming the ahll, patient called 911 multiple times. Patient called family friend Thalia, who states she is on the way. MD Carey and maintenance supervisor, khadar notified of patient's event . security, staff nurses, and
officer Yesi at patient's side.
--- NOTE | 2024-11-01 18:30 | PTCARENOTE ---
Patient's family friend, Thalia, at bedside speaking to patient. Patient ambulated to her room 417-2, MD Josee Barakat at bedside. patient is requesting to use bathroom without assistance. states she does not need anyone in the bathroom with her, per family
and MD at bedside patient is ok to walk alone
[2024-11-01] MEDS: HALDOL 2.5 MG IV (18:41)
--- NOTE | 2024-11-01 18:44 | PTCARENOTE ---
patient was escorted back to the room safely with security and family, nam at bedside. patient verbally states she is okay with receiving IV haldol. MD treadwell at beside. IV Haldol safely given to patient. Patient states she will stay in the hospital
--- NOTE | 2024-11-01 19:19 | PTCARENOTE ---
Patient transferred to room 422 safely. family at bedside. report given to retail shift manager nurse, Yisel. Patient is able to be redirected and safely resting in the bed during bedside shift report.
[2024-11-01] MEDS: ROXICODONE 10 MG PO (20:42)
--- NOTE | 2024-11-01 20:53 | W.PN.UPDATE ---
Update Note
Progress Note Update
code sakina called for Ms. Alexandra
she recieved ativan, per nursing confused, trying to leave and called 911 for which officers were present at bedside when I arrived at bedside. Her family friend was with her. Her friend told me that she recently had a hip fracture that was repaired
1 month ago along with a non-op sacral fracture. She was back in the hospital for pain management which was recommened by outpatient ortho and pcp.
When I evaled Ms. Alexandra she was standing and holding her walker, she did not appear agitated nor aggressive. But she was some what irate and her demeanor did improve once she asked everyone to leave the room. She even asked her roommate to leave the
room but her friend explained to her that this was her room as well. After ancillary staff (security/officers/pct/nursing) exited her room she asked to go to the bathroom. She walked directly to the bathroom with holding the walker up off the ground
speedly. She did not allow her nurse in the bathroom or allow her to keep the door open to watch her or assist her since she closed the door and locked it. Her bedside nurse did try to explain to her that she is a fall precaution and supervision was
part of fall precautions when using the bathroom.
I asked the nursing supervisor boat outfitting to give Ms. Alexandra her room which was able to be completed
Her friend told me something similar like this happened when she was hospitalized 1 month ago and did not remember the event. She is sensitive to medication. She is orientated x3 but with what her friend was telling me from the previous event 1
month prior I was concerned that if she left the hospital not knowing what she was fully doing then she would/could hurt herself even more as her pain once more lucid would be worse.
I was able to convince her to stay in the hospital for tonight, get re-evaled by medical provider tomorrow. Avoid use and have discontinued ativan. She is agreeable to 1 dose of IV haldol which was previously ordered.
[2024-11-01 23:00] VITALS: BP 138/79
[2024-11-02] MEDS: ROXICODONE 10 MG PO ×4 (02:48→19:08)
[2024-11-02] MEDS: TYLENOL 650 MG PO ×5 (02:48→19:27)
[2024-11-02] MEDS: SYNTHROID 25 MCG PO (06:35)
[2024-11-02] MEDS: SINEMET 25-100 2 TABLET PO ×4 (06:36→19:27)
[2024-11-02 07:50] VITALS: BP 177/92
[2024-11-02 10:11] VITALS: BP 169/78; PULSE 78; O2SAT 97
[2024-11-02] MEDS: SINEMET CR 25-100 (EXTENDED RELEASE) 1 TABLET PO ×2 (10:26→19:26)
[2024-11-02] MEDS: LEXAPRO 20 MG PO (10:45)
[2024-11-02] MEDS: PROSCAR 5 MG PO (10:46)
[2024-11-02] MEDS: LIORESAL 5 MG PO ×3 (10:46→21:11)
[2024-11-02] MEDS: ASPIRIN 325 MG PO (10:47)
[2024-11-02] MEDS: CRESTOR 10 MG PO (10:47)
[2024-11-02] MEDS: ATIVAN 1 MG PO (10:47)
[2024-11-02] MEDS: LONITEN 2.5 MG PO (10:47)
[2024-11-02] MEDS: COLACE 100 MG PO ×2 (10:48→19:26)
[2024-11-02] MEDS: TORADOL 30 MG IV ×2 (11:28→22:48)
[2024-11-02] MEDS: TYLENOL PO (12:27)
--- NOTE | 2024-11-02 13:13 | W.PN.HOSP.TC ---
Today's Communication/Plan
-
adjust pain regimen
pt/ot
Assessment / Plan
Assessment / Plan
Physical Exam
General: Well Developed, Well Nourished and No Apparent Distress
HEENT: NormoCephalic, Moist mucous membranes and Atraumatic
Respiratory: Clear and Non Labored Respirations
Cardiac: S1/S2 and Regular Rhythm; No Murmur, Rub or Gallop
GI: Soft, Non Tender, Non Distended and Normal Bowel Sounds
Rectal: Deferred by Provider
Genito-urinary: Deferred by me
Musculoskeletal: No Clubbing, No Cyanosis, No Edema and Other (lower lumbar piggyback clerk )
Skin: IV/Catheter Site
Neuro: Nonfocal/grossly intact
Psych: Calm and Intact Judgment/Insight
#Closed sacral fracture
#Pain
Abd/Pel CT (10/28/24): Nondisplaced fracture of the sacrum at the level of S2.
No hydronephrosis or nephroureterolithiasis.
- Admit to med/surg
- PT/OT
- Consult case management
- pain regimen - increase oxycodone to 10mg, increased baclofen to TID, Add toradol
-Breakthrough pain with morphine
#Parkinson's disease
- continue carbidopa-levodopa
#hypercholesterolemia
- continue rosuvastatin
#hypothyroid
- continue levothyroxine
#depression/anxiety
- continue escitalopram and lorazepam
Anticipated Discharge: Within 24 hours
Subjective/Interval History
-
Date of Service: November 02, 2024
AAOx3 this am. in pain during ambulation and at rest
Objective Data
-
Vital Signs:
Vital Signs
Temp Pulse Resp BP Pulse Ox
97.5 F 79 16 177/92 97
11/02/24 07:50 11/02/24 07:50 11/02/24 07:50 11/02/24 07:50 11/01/24 23:00
I&O
11/01/24 11/02/24 11/03/24
06:59 06:59 06:59
Intake Total 120 / 120
Output Total 550 / 550
Balance -430 / -430
Review of Systems
-
History Source: Patient
All other systems: Not reviewed unless documented
Data Reviewed
-
Diagnostic Radiology: Report Reviewed by me
Labs: Labs Reviewed by me
[2024-11-02 15:33] VITALS: BP 129/73
[2024-11-02] MEDS: LOVENOX SC (19:12)
[2024-11-02 20:05] VITALS: BP 142/69
[2024-11-02 23:56] VITALS: BP 146/66
[2024-11-03] MEDS: TYLENOL PO ×3 (05:07→23:32)
[2024-11-03] MEDS: SYNTHROID 25 MCG PO (05:27)
[2024-11-03] MEDS: ROXICODONE 10 MG PO ×3 (06:39→16:15)
[2024-11-03 07:05] VITALS: BP 162/70
[2024-11-03] MEDS: SINEMET 25-100 2 TABLET PO ×4 (08:34→21:02)
[2024-11-03 08:41] LABS: Hematocrit 35.4 % (37.0-47.0); Hemoglobin 11.7 g/dL (12.0-16.0); Mean Corp Hgb Conc. 33.1 g/dL (33.0-37.0); Mean Corpuscular Volume 95.4 fL (81.0-99.0); Platelet Count 416 10^3/uL (130-400); Red Cell Dist. Width 13.7 % (11.5-14.5)
[2024-11-03 09:12] LABS: ALT (SGPT) < 10 U/L (0-35); AST (SGOT) 45 U/L (14-36); Albumin 3.9 g/dl (3.5-5.0); Alkaline Phosphatase 132 U/L (38-126); Blood Urea Nitrogen 19 mg/dl (7-17); Calcium 9.5 mg/dl (8.4-10.2); Carbon Dioxide 27 mmol/L (22-30); Chloride 108 mmol/L (98-107); Estimated Creatinine Clearance 56 ml/min; Glucose 87 mg/dl (70-99); Potassium 4.3 mmol/L (3.5-5.1); Sodium 139 mmol/L (135-145); Total Protein 6.7 g/dl (6.3-8.2); eGFR > 60.00
[2024-11-03] MEDS: ASPIRIN 325 MG PO (10:00)
[2024-11-03] MEDS: LIORESAL 5 MG PO ×3 (10:05→21:03)
[2024-11-03] MEDS: LEXAPRO 20 MG PO (10:05)
[2024-11-03] MEDS: COLACE 100 MG PO ×2 (10:06→21:01)
[2024-11-03] MEDS: TYLENOL 650 MG PO ×4 (10:06→21:01)
[2024-11-03] MEDS: PROSCAR 5 MG PO (10:06)
[2024-11-03] MEDS: LONITEN 2.5 MG PO (11:03)
[2024-11-03] MEDS: ATIVAN 1 MG PO (11:03)
[2024-11-03] MEDS: CRESTOR 10 MG PO (11:04)
[2024-11-03] MEDS: SINEMET CR 25-100 (EXTENDED RELEASE) 1 TABLET PO ×2 (11:04→21:01)
--- NOTE | 2024-11-03 12:13 | W.PN.HOSP.TC ---
Addendum entered and electronically signed by Vin Carey MD 11/03/24 12:48:
After discussion with daughter, patient having shooting pain from lower back to left buttock and down her left that has worsening. Will order MR lumbar spine
Original Note:
Today's Communication/Plan
-
Pain regimen including oxycodone
Cleared for DC
Follow-up orthopedics outpatient
Follow-up PCP within 1 week
Assessment / Plan
Assessment / Plan
Physical Exam
General: Well Developed, Well Nourished and No Apparent Distress
HEENT: NormoCephalic, Moist mucous membranes and Atraumatic
Respiratory: Clear and Non Labored Respirations
Cardiac: S1/S2 and Regular Rhythm; No Murmur, Rub or Gallop
GI: Soft, Non Tender, Non Distended and Normal Bowel Sounds
Rectal: Deferred by Provider
Genito-urinary: Deferred by me
Musculoskeletal: No Clubbing, No Cyanosis, No Edema and Other (lower lumbar desizing machine back tender )
Skin: IV/Catheter Site
Neuro: Nonfocal/grossly intact
Psych: Calm and Intact Judgment/Insight
#Closed sacral fracture
#Pain
Abd/Pel CT (10/28/24): Nondisplaced fracture of the sacrum at the level of S2.
No hydronephrosis or nephroureterolithiasis.
- Admit to med/surg
- PT/OT
- Consult case management
- pain regimen - increase oxycodone to 10mg, increased baclofen to TID
�Toradol, morphine for breakthrough was added, has not required in the last 12 hours
�DC to SNF
�Left femur x-ray
#Parkinson's disease
- continue carbidopa-levodopa
#hypercholesterolemia
- continue rosuvastatin
#hypothyroid
- continue levothyroxine
#depression/anxiety
- continue escitalopram and lorazepam
More than 30 minutes spent in discharge including
Final examination of the patient
Summarizing hospital stay
Instructions for continuing care to all relevant caregivers
Preparation of discharge records, prescriptions, and referral forms
Total time spent (in minutes): 37
Anticipated Discharge: Today
Subjective/Interval History
-
Date of Service: November 03, 2024
Pain better controlled, not requiring IV medications
Objective Data
-
Labs:
Laboratory Results
11/03/24
08:03
WBC 11.7 H
Hgb 11.7 L
Hct 35.4 L
Plt Count 416 H D
Sodium 139
Potassium 4.3
Chloride 108 H
Carbon Dioxide 27
BUN 19 H
Creatinine 0.7
Glucose 87
Calcium 9.5
Total Bilirubin 0.4
AST 45 H
ALT < 10
Alkaline Phosphatase 132 H
Vital Signs:
Vital Signs
Temp Pulse Resp BP Pulse Ox
97.9 F 70 16 162/70 96
11/03/24 07:05 11/03/24 07:05 11/03/24 07:05 11/03/24 07:05 11/03/24 07:05
I&O
11/02/24 11/03/24 11/04/24
06:59 06:59 06:59
Intake Total 1200 / 1200
Output Total 0 / 0
Balance 1200 / 1200
Review of Systems
-
History Source: Patient
All other systems: Not reviewed unless documented
Physical Exam
-
General: No Apparent Distress
HEENT: PERRLA
Respiratory: Clear to Auscultation; Negative Wheezes
Cardiac: Regular Rhythm and S1/S2
GI: Soft and Nontender
Musculoskeletal: No Edema
Skin: Warm and Dry; Negative Rash
Neuro: AO x 3
Psych: Anxious
Data Reviewed
-
Diagnostic Radiology: Report Reviewed by me
Labs: Labs Reviewed by me
--- NOTE | 2024-11-03 12:20 | W.DS.TRANS ---
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
-
Discharge Instructions:
Discharge Diagnosis/Procedures sacral fx
pain
Activity As tolerated
Blood Work cbc and bmp in 1 week with pcp
Instructions:
Stand-Alone Forms:
Changes to Home Medications: Yes
Discharge Medications:
DC Medications w/original date entered in [facility]
escitalopram oxalate 20 mg tablet (Lexapro) 20 mg PO DAILY Mental Health/Anxiety 09/29/24
finasteride 5 mg tablet 5 mg PO DAILY Urinary Issue 09/29/24
levothyroxine 25 mcg tablet (Synthroid) 25 mcg PO DAILY Thyroid 09/29/24
minoxidil 2.5 mg tablet 2.5 mg PO DAILY Blood Pressure 09/29/24
rosuvastatin 10 mg tablet 10 mg PO DAILY High Cholesterol 09/29/24
acetaminophen 500 mg tablet (Tylenol Extra Strength) 1,000 mg (2 x 500 mg) PO TID #30 tabs 10/03/24
aspirin 325 mg tablet 325 mg PO DAILY #30 tabs 10/03/24
docusate sodium 100 mg capsule 100 mg PO BID #30 caps 10/03/24
carbidopa 25 mg-levodopa 100 mg tablet 2 tab PO QID@07,10,14,192910/31/24
carbidopa ER 25 mg-levodopa 100 mg tablet,extended release 1 tab PO BID@1000,0 10/31/24
ibuprofen 200 mg tablet (Advil) 800 mg PO BID 10/31/24
lorazepam 1 mg tablet (Ativan) 1 mg PO DAILY@1100 anxiety 10/31/24
baclofen 5 mg tablet 5 mg PO TID #0 tabs 11/03/24
oxycodone 5 mg tablet 10 mg (2 x 5 mg) PO Q4HPRN PRN severe pain #20 tabs 11/03/24
Home Medication Changes
baclofen 5 mg tablet 5 mg PO TID #0 tabs 11/03/24
oxycodone 5 mg tablet 10 mg (2 x 5 mg) PO Q4HPRN PRN severe pain #20 tabs 11/03/24
Pending Results: No
[2024-11-03 12:55] VITALS: BP 137/65
--- NOTE | 2024-11-03 13:42 | CM ---
Chart reviewed. Physiatry assessment indicates SNF level, patient not appropriate for acute.
Spoke w/ patient bedside to discuss d/c plan of SNF or home. Patient unsure of what she wants as she is more interested in pain management and to be without any pain. Discussed w/ PT who explained to patient that her pain level is accurate for her
fractures and encouraged patient she would have to work through it.
CM spoke w/ patient's POA, Clayton, explained patient is not appropriate for acute rehab and still discussing w/ patient if she would be interested in SNF. Kenyonmartha stated after speaking w/ patient yesterday she believes patient would want to discharge
home as she does have support. Clayton prefers for patient to d/c home as patient is current w/ [facility] and that patient has a registered nursing professor that assists her as well. Clayton prefer to speak w/ patient first to further discuss what she wants
Per hospitalist, patient now complaining of buttock pain, MRI ordered
Plan: SNF vs home, ROSIBEL w/ [facility]
[2024-11-03] MEDS: TORADOL 30 MG IV (13:43)
[2024-11-03 15:05] VITALS: BP 133/65
[2024-11-03] MEDS: LOVENOX SC (16:09)
[2024-11-03] MEDS: SENOKOT 17.2 MG PO (21:03)
[2024-11-03 23:12] VITALS: BP 137/66
[2024-11-04] MEDS: TYLENOL PO (04:16)
[2024-11-04] MEDS: SYNTHROID 25 MCG PO (05:20)
[2024-11-04 06:43] LABS: Hematocrit 32.9 % (37.0-47.0); Hemoglobin 11.1 g/dL (12.0-16.0); Mean Corp Hgb Conc. 33.7 g/dL (33.0-37.0); Mean Corpuscular Volume 95.1 fL (81.0-99.0); Platelet Count 424 10^3/uL (130-400); Red Cell Dist. Width 13.7 % (11.5-14.5)
[2024-11-04 07:48] LABS: ALT (SGPT) < 10 U/L (0-35); AST (SGOT) 34 U/L (14-36); Albumin 3.7 g/dl (3.5-5.0); Alkaline Phosphatase 120 U/L (38-126); Blood Urea Nitrogen 30 mg/dl (7-17); Calcium 9.3 mg/dl (8.4-10.2); Carbon Dioxide 26 mmol/L (22-30); Chloride 107 mmol/L (98-107); Estimated Creatinine Clearance 56 ml/min; Glucose 91 mg/dl (70-99); Potassium 4.4 mmol/L (3.5-5.1); Sodium 139 mmol/L (135-145); Total Protein 6.4 g/dl (6.3-8.2); eGFR > 60.00
[2024-11-04 08:51] VITALS: BP 151/73
[2024-11-04] MEDS: SINEMET 25-100 2 TABLET PO ×4 (09:10→18:47)
[2024-11-04] MEDS: CRESTOR 10 MG PO (09:10)
[2024-11-04] MEDS: ASPIRIN 325 MG PO (09:10)
[2024-11-04] MEDS: COLACE 100 MG PO ×2 (09:10→21:29)
[2024-11-04] MEDS: LEXAPRO 20 MG PO (09:10)
[2024-11-04] MEDS: PROSCAR 5 MG PO (09:11)
[2024-11-04] MEDS: LONITEN 2.5 MG PO (09:11)
[2024-11-04] MEDS: LIORESAL 5 MG PO ×3 (09:11→21:29)
[2024-11-04] MEDS: TYLENOL 650 MG PO ×4 (09:11→21:29)
[2024-11-04] MEDS: ROXICODONE 10 MG PO ×3 (09:29→21:28)
[2024-11-04] MEDS: SINEMET CR 25-100 (EXTENDED RELEASE) 1 TABLET PO ×2 (11:09→18:55)
[2024-11-04] MEDS: ATIVAN 1 MG PO (11:09)
--- NOTE | 2024-11-04 12:12 | PTCARENOTE ---
Pt is off the floor for MRI at this time.
--- NOTE | 2024-11-04 13:31 | W.PN.HOSP.TC ---
Today's Communication/Plan
-
Medrol pack
NSAIDS
PT/OT
Engaged with NSG
Assessment / Plan
Assessment / Plan
Physical Exam
General: Well Developed, Well Nourished and No Apparent Distress
HEENT: NormoCephalic, Moist mucous membranes and Atraumatic
Respiratory: Clear and Non Labored Respirations
Cardiac: S1/S2 and Regular Rhythm; No Murmur, Rub or Gallop
GI: Soft, Non Tender, Non Distended and Normal Bowel Sounds
Rectal: Deferred by Provider
Genito-urinary: Deferred by me
Musculoskeletal: No Clubbing, No Cyanosis, No Edema and Other (lower lumbar backfiller )
Skin: IV/Catheter Site
Neuro: Nonfocal/grossly intact
Psych: Calm and Intact Judgment/Insight
#Pain
#Nondisplaced fracture of the sacrum at the level of S2.
#ACUTE BILATERAL SACRAL INSUFFICIENCY FRACTURES surrounded by severe bone marrow edema.
#MODERATE to SEVERE CENTRAL CANAL STENOSIS at L4/L5 secondary to a moderate-sized diffuse disc bulge and moderate to severe bilateral facet joint arthrosis.
#Mild grade 1 anterolisthesis of L5 on S1 secondary to severe left-sided facet joint arthrosis.
#gluteal calcific tendinitis adjacent to the left greater trochanter.
-Spoke to ortho - NSAIDS, steroids treatment of choice; PT/OT - f/u outpatient
- NSG: Steroids; PT/OT; F/u Outpt
- Admit to med/surg
- PT/OT
- Consult case management
- pain regimen - increase oxycodone to 10mg, increased baclofen to TID
�Toradol, morphine for breakthrough was added
�DC to SNF once improving
-For tendinitis - may benefit from Intratrochanteric steroids outpatient
#Parkinson's disease
- continue carbidopa-levodopa
#hypercholesterolemia
- continue rosuvastatin
#hypothyroid
- continue levothyroxine
#depression/anxiety
- continue escitalopram and lorazepam
Total time spent on today's encounter was 51 minutes which included time spent in counseling the patient/family regarding diagnosis and treatment plan as listed above, goals of care, and symptom management. Case was discussed with nursing staff,
specialists, and care coordinators/case management. All labs and imaging personally reviewed by me. Remainder the time spent in detailed review of previous records, lab data, imaging, and other medical provider documentation.
Anticipated Discharge: 24 - 48 hours
Subjective/Interval History
-
Date of Service: November 04, 2024
left gluteal pain still present
Objective Data
-
Labs:
Laboratory Results
11/04/24
06:22
WBC 7.7
Hgb 11.1 L
Hct 32.9 L
Plt Count 424 H
Sodium 139
Potassium 4.4
Chloride 107
Carbon Dioxide 26
BUN 30 H
Creatinine 0.7
Glucose 91
Calcium 9.3
Total Bilirubin 0.5
AST 34
ALT < 10
Alkaline Phosphatase 120
Vital Signs:
Vital Signs
Temp Pulse Resp BP Pulse Ox
98.5 F 79 18 151/73 97
11/04/24 08:51 11/04/24 08:51 11/04/24 08:51 11/04/24 08:51 11/04/24 08:51
I&O
11/03/24 11/04/24 11/05/24
06:59 06:59 06:59
Intake Total 1200 / 1200 1300 / 1300
Output Total 0 / 0
Balance 1200 / 1200 1300 / 1300
Review of Systems
-
History Source: Patient
All other systems: Not reviewed unless documented
Physical Exam
-
General: No Apparent Distress
HEENT: PERRLA
Respiratory: Clear to Auscultation; Negative Wheezes
Cardiac: Regular Rhythm and S1/S2
GI: Soft and Nontender
Musculoskeletal: No Edema
Skin: Warm and Dry; Negative Rash
Neuro: AO x 3
Psych: Anxious
[2024-11-04] MEDS: TORADOL 30 MG IV (13:50)
[2024-11-04] MEDS: MEDROL 24 MG PO (14:45)
--- NOTE | 2024-11-04 15:09 | CM ---
Chart reviewed and per physical therapy notes patient is in pain, shoe caser received a call from Thalia patient's secondary contact and she is requesting that patient be reevaluated for acute rehab again, shoe caser will reach out to [facility].
Plan; To follow with patient progress for possible rehab placement.
[2024-11-04 15:21] VITALS: BP 109/52
[2024-11-04] MEDS: LOVENOX SC ×2 (18:47→19:00)
[2024-11-04] MEDS: SENOKOT 17.2 MG PO (21:26)
[2024-11-04 23:00] VITALS: BP 157/75
[2024-11-05] MEDS: TYLENOL PO ×2 (00:03→14:43)
[2024-11-05] MEDS: ROXICODONE 10 MG PO ×4 (03:05→18:44)
[2024-11-05] MEDS: TYLENOL 650 MG PO ×4 (03:05→22:05)
[2024-11-05] MEDS: TORADOL 30 MG IV (03:20)
[2024-11-05 06:20] LABS: Hematocrit 33.7 % (37.0-47.0); Hemoglobin 11.2 g/dL (12.0-16.0); Mean Corp Hgb Conc. 33.2 g/dL (33.0-37.0); Mean Corpuscular Volume 95.7 fL (81.0-99.0); Platelet Count 459 10^3/uL (130-400); Red Cell Dist. Width 13.6 % (11.5-14.5)
[2024-11-05] MEDS: SYNTHROID 25 MCG PO (06:26)
[2024-11-05] MEDS: SINEMET 25-100 2 TABLET PO ×4 (06:40→18:33)
[2024-11-05 06:50] LABS: ALT (SGPT) 14 U/L (0-35); AST (SGOT) 31 U/L (14-36); Albumin 3.9 g/dl (3.5-5.0); Alkaline Phosphatase 138 U/L (38-126); Blood Urea Nitrogen 26 mg/dl (7-17); Calcium 9.3 mg/dl (8.4-10.2); Carbon Dioxide 27 mmol/L (22-30); Chloride 107 mmol/L (98-107); Estimated Creatinine Clearance 56 ml/min; Glucose 91 mg/dl (70-99); Potassium 4.3 mmol/L (3.5-5.1); Sodium 140 mmol/L (135-145); Total Protein 6.7 g/dl (6.3-8.2); eGFR > 60.00
[2024-11-05 08:00] VITALS: BP 147/71
[2024-11-05] MEDS: LONITEN 2.5 MG PO (10:07)
[2024-11-05] MEDS: COLACE 100 MG PO ×2 (10:07→22:04)
[2024-11-05] MEDS: ASPIRIN 325 MG PO (10:07)
[2024-11-05] MEDS: LIORESAL 5 MG PO ×3 (10:07→22:02)
[2024-11-05] MEDS: CRESTOR 10 MG PO (10:08)
[2024-11-05] MEDS: PROSCAR 5 MG PO (10:08)
[2024-11-05] MEDS: LEXAPRO 20 MG PO (10:08)
[2024-11-05] MEDS: ATIVAN 1 MG PO (10:13)
[2024-11-05] MEDS: SINEMET CR 25-100 (EXTENDED RELEASE) 1 TABLET PO ×2 (10:32→18:33)
[2024-11-05] MEDS: MEDROL 20 MG PO (10:32)
--- NOTE | 2024-11-05 14:04 | W.PN.HOSP.TC ---
Today's Communication/Plan
-
pain control
medrol pack
pt/ot
[facility] to [facility] tomorrow 11/06
Assessment / Plan
Assessment / Plan
Physical Exam
General: Well Developed, Well Nourished and No Apparent Distress
HEENT: NormoCephalic, Moist mucous membranes and Atraumatic
Respiratory: Clear and Non Labored Respirations
Cardiac: S1/S2 and Regular Rhythm; No Murmur, Rub or Gallop
GI: Soft, Non Tender, Non Distended and Normal Bowel Sounds
Rectal: Deferred by Provider
Genito-urinary: Deferred by me
Musculoskeletal: No Clubbing, No Cyanosis, No Edema and Other (lower lumbar cloth printing back tender )
Skin: IV/Catheter Site
Neuro: Nonfocal/grossly intact
Psych: Calm and Intact Judgment/Insight
#Pain
#Nondisplaced fracture of the sacrum at the level of S2.
#ACUTE BILATERAL SACRAL INSUFFICIENCY FRACTURES surrounded by severe bone marrow edema.
#MODERATE to SEVERE CENTRAL CANAL STENOSIS at L4/L5 secondary to a moderate-sized diffuse disc bulge and moderate to severe bilateral facet joint arthrosis.
#Mild grade 1 anterolisthesis of L5 on S1 secondary to severe left-sided facet joint arthrosis.
#gluteal calcific tendinitis adjacent to the left greater trochanter.
-Spoke to ortho - NSAIDS, steroids treatment of choice; PT/OT - f/u outpatient
- NSG: Steroids; PT/OT; F/u Outpt
- Admit to med/surg
- PT/OT
- Consult case management
-Medrol dose pack
- pain regimen - oxycodone to 10mg, increased baclofen to TID
�Toradol, morphine for breakthrough was added
-For tendinitis - may benefit from Intratrochanteric steroids outpatient
-Clear for DC
#Parkinson's disease
- continue carbidopa-levodopa
#hypercholesterolemia
- continue rosuvastatin
#hypothyroid
- continue levothyroxine
#depression/anxiety
- continue escitalopram and lorazepam
Anticipated Discharge: Within 24 hours
Subjective/Interval History
-
Date of Service: November 05, 2024
no acute events
Objective Data
-
Labs:
Laboratory Results
11/05/24
05:58
WBC 11.3 H
Hgb 11.2 L
Hct 33.7 L
Plt Count 459 H
Sodium 140
Potassium 4.3
Chloride 107
Carbon Dioxide 27
BUN 26 H
Creatinine 0.7
Glucose 91
Calcium 9.3
Total Bilirubin 0.4
AST 31
ALT 14
Alkaline Phosphatase 138 H
Vital Signs:
Vital Signs
Temp Pulse Resp BP Pulse Ox
98.2 F 78 17 147/71 98
11/05/24 08:00 11/05/24 08:00 11/05/24 08:00 11/05/24 08:00 11/05/24 08:00
I&O
11/04/24 11/05/24 11/06/24
06:59 06:59 06:59
Intake Total 1300 / 1300 960 / 960
Balance 1300 / 1300 960 / 960
Review of Systems
-
History Source: Patient
All other systems: Not reviewed unless documented
Data Reviewed
-
Diagnostic Radiology: Report Reviewed by me
Labs: Labs Reviewed by me
[2024-11-05 15:00] VITALS: BP 133/64
[2024-11-05] MEDS: LOVENOX SC ×2 (18:33→18:35)
[2024-11-05] MEDS: SENOKOT 17.2 MG PO (22:01)
[2024-11-05 23:00] VITALS: BP 165/75
[2024-11-06] MEDS: TYLENOL 650 MG PO ×5 (02:16→19:24)
[2024-11-06] MEDS: ROXICODONE 10 MG PO ×4 (02:17→21:02)
[2024-11-06] MEDS: TYLENOL PO ×2 (05:00→23:06)
[2024-11-06] MEDS: SINEMET 25-100 2 TABLET PO ×4 (07:15→19:24)
[2024-11-06] MEDS: SYNTHROID 25 MCG PO (07:16)
[2024-11-06 07:55] VITALS: BP 174/84
[2024-11-06] MEDS: MEDROL 16 MG PO (08:20)
[2024-11-06] MEDS: LIORESAL 5 MG PO ×3 (08:21→21:02)
[2024-11-06] MEDS: LONITEN 2.5 MG PO (08:21)
[2024-11-06] MEDS: CRESTOR 10 MG PO (08:21)
[2024-11-06] MEDS: PROSCAR 5 MG PO (08:22)
[2024-11-06] MEDS: LEXAPRO 20 MG PO (08:23)
[2024-11-06] MEDS: COLACE 100 MG PO ×2 (08:23→19:24)
[2024-11-06] MEDS: ASPIRIN 325 MG PO (08:23)
[2024-11-06 08:54] LABS: Hematocrit 33.4 % (37.0-47.0); Hemoglobin 11.2 g/dL (12.0-16.0); Mean Corp Hgb Conc. 33.5 g/dL (33.0-37.0); Mean Corpuscular Volume 94.9 fL (81.0-99.0); Platelet Count 514 10^3/uL (130-400); Red Cell Dist. Width 13.8 % (11.5-14.5)
[2024-11-06 09:22] LABS: ALT (SGPT) 10 U/L (0-35); AST (SGOT) 32 U/L (14-36); Albumin 4.2 g/dl (3.5-5.0); Alkaline Phosphatase 145 U/L (38-126); Blood Urea Nitrogen 29 mg/dl (7-17); Calcium 9.6 mg/dl (8.4-10.2); Carbon Dioxide 28 mmol/L (22-30); Chloride 105 mmol/L (98-107); Estimated Creatinine Clearance 65 ml/min; Glucose 88 mg/dl (70-99); Potassium 4.1 mmol/L (3.5-5.1); Sodium 139 mmol/L (135-145); Total Protein 7.1 g/dl (6.3-8.2); eGFR > 60.00
[2024-11-06] MEDS: ATIVAN 1 MG PO (09:59)
[2024-11-06] MEDS: SINEMET CR 25-100 (EXTENDED RELEASE) 1 TABLET PO ×2 (09:59→19:24)
[2024-11-06 10:17] VITALS: BP 158/77
--- NOTE | 2024-11-06 10:17 | W.PN.HOSP.TC ---
Today's Communication/Plan
-
Await Psych consult
May need reeval of possible acute rehab
Assessment / Plan
Assessment / Plan
#Pain
#Nondisplaced fracture of the sacrum at the level of S2.
#ACUTE BILATERAL SACRAL INSUFFICIENCY FRACTURES surrounded by severe bone marrow edema.
#MODERATE to SEVERE CENTRAL CANAL STENOSIS at L4/L5 secondary to a moderate-sized diffuse disc bulge and moderate to severe bilateral facet joint arthrosis.
#Mild grade 1 anterolisthesis of L5 on S1 secondary to severe left-sided facet joint arthrosis.
#gluteal calcific tendinitis adjacent to the left greater trochanter.
-Spoke to ortho - NSAIDS, steroids treatment of choice; PT/OT - f/u outpatient
- NSG: Steroids; PT/OT; F/u Outpt
- Admit to med/surg
- PT/OT
- Consult case management
-Medrol dose pack
- pain regimen - oxycodone to 10mg, increased baclofen to TID
�Toradol, morphine for breakthrough was added
-For tendinitis - may benefit from Intratrochanteric steroids outpatient
-Pt Clayton OCHOA ([phone]) in room and would like pt reevaluated for acute rehab
#Parkinson's disease
- continue carbidopa-levodopa
#hypercholesterolemia
- continue rosuvastatin
#hypothyroid
- continue levothyroxine
#depression/anxiety
- continue escitalopram and lorazepam
Psych consult placed
Anticipated Discharge: 24 - 48 hours
Subjective/Interval History
-
Date of Service: November 06, 2024
Still with pain
Objective Data
-
Labs:
Laboratory Results
11/06/24
08:10
WBC 10.3
Hgb 11.2 L
Hct 33.4 L
Plt Count 514 H
Sodium 139
Potassium 4.1
Chloride 105
Carbon Dioxide 28
BUN 29 H
Creatinine 0.6
Glucose 88
Calcium 9.6
Total Bilirubin 0.6
AST 32
ALT 10
Alkaline Phosphatase 145 H
Vital Signs:
Vital Signs
Temp Pulse Resp BP Pulse Ox
98.3 F 84 14 174/84 96
11/06/24 07:55 11/06/24 07:55 11/06/24 07:55 11/06/24 07:55 11/06/24 07:55
I&O
11/05/24 11/06/24 11/07/24
06:59 06:59 06:59
Intake Total 960 / 960 480 / 480
Balance 960 / 960 480 / 480
Review of Systems
-
History Source: Patient and Family
Constitutional: Reports No Symptoms
EENT: Reports No Symptoms Reported
Respiratory: Reports No Symptoms
Cardiac: Reports No Symptoms
Musculoskeletal: Reports Joint Pain
Neuro: Reports Other (Parkinsonism)
Physical Exam
-
General: Well Developed; Negative Well Nourished (thin)
HEENT: Normocephalic and Atraumatic
Respiratory: Clear to Auscultation; Negative Wheezes, Rales or Rhonchi
Cardiac: Regular Rhythm and S1/S2
GI: Soft, Nontender and Nondistended
Musculoskeletal: No Clubbing, No Cyanosis and No Edema
Neuro: Awake, Alert and Other (mild cogwheel changes)
--- NOTE | 2024-11-06 12:22 | CM ---
CM reviewed chart, patient seen bedside with DON, Clayton, and Hospitalist. CM reviewed with [facility] liaison, PMR recommending SNF. Patient and POA asking for explanation as to why [facility] unable to accept, will ask liaison to please call [facility]. Patients
family friend seen, Thalia, aware of PMR recommendation of SNF, Clayton and Thalia agreeable to referral to [facility] and other local SNFS- will place in [facility]. Patient will require insurance auth for SNF once bed found. CM will continue to follow for
all discharge planning needs.
Plan; SNF, referrals sent, will need auth.
--- NOTE | 2024-11-06 14:07 | CS.PSYCHR ---
Consult Summary - Psychiatry
-
Pt is a 69 yo female with Parkinson's disease, hypercholesterolemia, hypothyroid and depression/anxiety, who presented to [facility] ED for evaluation of persistent lower back and buttock pain. Patient was seen in ED a few days prior and found to have a
fracture of her sacrum. Pain noted interfering with ADL's despite Oxycodone 2.5 mg. Psychiatry asked to evaluate pt for passive thoughts of dying overnight. Pt's son would have reportedly been 50 yrs old over the weekend. Pt was trying
to complete a video Neurology appointment, but was unable to connect. Pt seen sitting up in chair, at times standing for relief of discomfort. Pt was at [employer], but apparently having some difficulty complying with PT recommendations. Pt
expressed some situational 'frustration', states she misses being home with her cat. Pt denies any suicidal ideation/plan/intent today; states she keeps a positive outlook despite multiple losses and problems. Family members are visiting,
supportive.
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 No recent treatment. No hx of inpatient tx. Recently/currently maintained on Lexapro 20 mg daily
SH: lives alone, x 2, second time 2019. 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
FHx: mother- depression, took Valium for her 'nerves'
MSE: alert, oriented, calm, cooperative. Affect full and appropriate, mood mildly dysphoric. Denies SI. Speech coherent, somewhat circumstantial, pt aware she is rambling somewhat about her past. Insight appears intact
Imp: Adjustment d/o with depression. Pt denies any active suicidal ideation
Rec: continue existing Lexapro. Consider outpatient therapy when medically cleared/upon return home
Psychiatry will sign off; please re-consult for any new concerns
[2024-11-06 15:36] VITALS: BP 113/61
[2024-11-06] MEDS: LOVENOX SC (18:51)
[2024-11-06] MEDS: SENOKOT PO (21:02)
[2024-11-06 23:00] VITALS: BP 150/72
--- NOTE | 2024-11-07 02:24 | DOWNTIME ---
There was a [employer] Downtime on 11/07/2024 from 0100 to 11/07/2024 at 0220. Downtime documentation of patient's care, including medication administrations, has been reconciled in the electronic record per guidelines. Refer to the
patient's paper chart under the miscellaneous tab to see printed paper medication records and downtime forms.
[2024-11-07] MEDS: TYLENOL PO ×3 (03:23→23:14)
[2024-11-07] MEDS: SINEMET 25-100 2 TABLET PO ×4 (06:02→18:38)
[2024-11-07] MEDS: SYNTHROID 25 MCG PO (06:02)
[2024-11-07] MEDS: ROXICODONE 10 MG PO ×3 (07:36→18:37)
[2024-11-07] MEDS: LEXAPRO 20 MG PO (07:37)
[2024-11-07] MEDS: TYLENOL 650 MG PO ×3 (07:37→20:43)
[2024-11-07] MEDS: ASPIRIN 325 MG PO (07:37)
[2024-11-07] MEDS: LIORESAL 5 MG PO ×3 (07:37→20:42)
[2024-11-07] MEDS: PROSCAR 5 MG PO (07:37)
[2024-11-07] MEDS: COLACE 100 MG PO ×2 (07:37→20:43)
[2024-11-07] MEDS: CRESTOR 10 MG PO (07:46)
[2024-11-07] MEDS: LONITEN 2.5 MG PO (07:47)
[2024-11-07] MEDS: MEDROL 12 MG PO (07:49)
[2024-11-07 08:01] LABS: Hematocrit 34.6 % (37.0-47.0); Hemoglobin 11.4 g/dL (12.0-16.0); Mean Corp Hgb Conc. 32.9 g/dL (33.0-37.0); Mean Corpuscular Volume 95.8 fL (81.0-99.0); Platelet Count 507 10^3/uL (130-400); Red Cell Dist. Width 13.7 % (11.5-14.5)
[2024-11-07 08:04] VITALS: BP 175/76
[2024-11-07 08:34] LABS: ALT (SGPT) < 10 U/L (0-35); AST (SGOT) 27 U/L (14-36); Alkaline Phosphatase 156 U/L (38-126); Blood Urea Nitrogen 26 mg/dl (7-17); Calcium 9.2 mg/dl (8.4-10.2); Carbon Dioxide 27 mmol/L (22-30); Glucose 83 mg/dl (70-99); Potassium 4.1 mmol/L (3.5-5.1); Sodium 141 mmol/L (135-145); Total Protein 6.8 g/dl (6.3-8.2)
[2024-11-07 08:43] LABS: Albumin 3.9 g/dl (3.5-5.0); Chloride 106 mmol/L (98-107); Estimated Creatinine Clearance 65 ml/min; eGFR > 60.00
--- NOTE | 2024-11-07 09:20 | CM ---
Addendum entered by Renu Chang 11/07/24 15:09:
DOROTEO spoke with [employer]- auth submitted, sent to [employer] for review- pending auth #[id number]. Raisa at [facility] updated.
Original Note:
CM reviewed chart, spoke with patients POA, family/friend, Thalia, provided update regarding accepting facilities- [facility] inquiring about d/c plan after SNF- plan will be home with VN services. DOROTEO discussed patient is doing well in therapy, patient
may potentially be denied by insurance. Thalia reports patient does well ambulating, concern is going up steps and getting in and out of bed. DOROTEO explained if auth were to be denied, there is an option for peer to peer review, also option for patient
to return home with VN services, private caregivers. Patient will need updated OT notes for auth if [facility] able to accept.
Plan; [facility] pending acceptance, will need auth
[2024-11-07] MEDS: ATIVAN 1 MG PO (10:35)
[2024-11-07] MEDS: SINEMET CR 25-100 (EXTENDED RELEASE) 1 TABLET PO ×2 (10:37→18:38)
[2024-11-07 13:18] VITALS: BP 105/56; PULSE 88; O2SAT 95
--- NOTE | 2024-11-07 14:20 | PN.CDI ---
CDI
- -
CDI:
Physician Documentation Request
Admit Date: 11/04/24 15:05
Dear Doctor Lee,
Patient admitted with nondisplaced fracture of the sacrum at the level of S2.
10/28/24 EMS Report, ' Pt. states she had right hip surgery 3 weeks ago and now has severe lower back pain...denies any falls....'
08/15/14 Bone Density Survey, 'IMPRESSION: Osteopenia.'
Please provide in your note the likely etiology of the sacral fracture:
Sacral fracture due to age-related osteoporosis
Other cause of sacral fracture ( please specify, if known)
Use of terms such as suspected, likely, concern for, or probable (associated with a specific diagnosis that is being evaluated, monitored, or treated as if it exists) are acceptable and can be coded in the inpatient setting, when documented at the
time of discharge.
Thank you,
Helene SANDS,RN, CCDS
CDI Specialist
Available via tiger text
Please use your independent medical judgment in providing your response.
[2024-11-07 16:08] VITALS: BP 113/68
--- NOTE | 2024-11-07 16:23 | W.PN.HOSP.TC ---
Today's Communication/Plan
-
stop Medrol
will add Protonix in pt on steroids and ASA
Assessment / Plan
Assessment / Plan
#Pain
11/04 Lumbar Spine MRI:
#Nondisplaced fracture of the sacrum at the level of S2.
#ACUTE BILATERAL SACRAL INSUFFICIENCY FRACTURES surrounded by severe bone marrow edema.
#MODERATE to SEVERE CENTRAL CANAL STENOSIS at L4/L5 secondary to a moderate-sized diffuse disc bulge and moderate to severe bilateral facet joint arthrosis.
#Mild grade 1 anterolisthesis of L5 on S1 secondary to severe left-sided facet joint arthrosis.
#gluteal calcific tendinitis adjacent to the left greater trochanter.
-Spoke to ortho - NSAIDS, steroids treatment of choice; PT/OT - f/u outpatient
- NSG: Steroids; PT/OT; F/u Outpt
- Admit to med/surg
- PT/OT
- Consult case management
-will stop Medrol dose pack
- pain regimen - oxycodone to 10mg, increased baclofen to TID
�Toradol, morphine for breakthrough was added
-For tendinitis - may benefit from Intratrochanteric steroids outpatient
-11/06: Pt Clayton OCHOA ([phone]) in room and would like pt reevaluated for acute rehab. Discussed with PT/OT DOROTEO, (who had spoken to [facility], pt felt not to be appropriate for acute rehab)
11/07: awaiting input from insurance on whether pt appropriate for SNF rehab
call placed and discussed with Dr. Willoughby. reviewed results of above MRI. With the fx of the sacrum, would be unable to intervene on the canal stenosis until heals. If pt still having pain in 5-6 weeks, will need follow up in office for
evaluation
Leukocytosis ? due to steroids
#Parkinson's disease
- continue carbidopa-levodopa
#hypercholesterolemia
- continue rosuvastatin
#hypothyroid
- continue levothyroxine
#depression/anxiety
- continue escitalopram and lorazepam
Psych consult appreciated: felt to be adjustment disorder with depression. Consider outpatient therapy upon return home.
Anticipated Discharge: 24 - 48 hours
Subjective/Interval History
-
Date of Service: November 07, 2024
Awake, alert, voice is stronger
Objective Data
-
Labs:
Laboratory Results
11/07/24
06:56
WBC 13.3 H
Hgb 11.4 L
Hct 34.6 L
Plt Count 507 H
Sodium 141
Potassium 4.1
Chloride 106
Carbon Dioxide 27
BUN 26 H
Creatinine 0.6
Glucose 83
Calcium 9.2
Total Bilirubin 0.5
AST 27
ALT < 10
Alkaline Phosphatase 156 H
Vital Signs:
Vital Signs
Temp Pulse Resp BP Pulse Ox
98.3 F 95 16 113/68 96
11/07/24 16:08 11/07/24 16:08 11/07/24 16:08 11/07/24 16:08 11/07/24 16:08
I&O
11/06/24 11/07/24 11/08/24
06:59 06:59 06:59
Intake Total 480 / 480 480 / 480
Balance 480 / 480 480 / 480
Review of Systems
-
History Source: Patient and Family
Constitutional: Reports No Symptoms
EENT: Reports No Symptoms Reported
Respiratory: Reports No Symptoms
Cardiac: Reports No Symptoms
Musculoskeletal: Reports Joint Pain
Neuro: Reports Other (Parkinsonism)
Physical Exam
-
General: Well Developed; Negative Well Nourished (thin)
HEENT: Normocephalic and Atraumatic
Respiratory: Clear to Auscultation; Negative Wheezes, Rales or Rhonchi
Cardiac: Regular Rhythm and S1/S2
GI: Soft, Nontender and Nondistended
Musculoskeletal: No Clubbing, No Cyanosis and No Edema
Neuro: Awake, Alert and Other (mild cogwheel changes)
[2024-11-07] MEDS: LOVENOX SC (16:59)
[2024-11-07] MEDS: PROTONIX 40 MG PO (17:01)
[2024-11-07] MEDS: SENOKOT 17.2 MG PO (20:42)
[2024-11-07 23:00] VITALS: BP 122/53
[2024-11-08] MEDS: TYLENOL PO (05:00)
[2024-11-08] MEDS: SYNTHROID 25 MCG PO (06:34)
[2024-11-08] MEDS: SINEMET 25-100 2 TABLET PO ×4 (06:34→19:41)
[2024-11-08] MEDS: COLACE 100 MG PO ×2 (07:39→19:41)
[2024-11-08] MEDS: CRESTOR 10 MG PO (07:39)
[2024-11-08] MEDS: PROTONIX 40 MG PO (07:39)
[2024-11-08] MEDS: LEXAPRO 20 MG PO (07:39)
[2024-11-08] MEDS: TYLENOL 650 MG PO ×4 (07:39→19:41)
[2024-11-08] MEDS: LIORESAL 5 MG PO ×3 (07:39→21:49)
[2024-11-08] MEDS: PROSCAR 5 MG PO (07:39)
[2024-11-08] MEDS: LONITEN 2.5 MG PO (07:39)
[2024-11-08] MEDS: ASPIRIN 325 MG PO (07:39)
[2024-11-08 07:46] VITALS: BP 122/73
[2024-11-08 08:10] LABS: Hematocrit 34.9 % (37.0-47.0); Hemoglobin 11.8 g/dL (12.0-16.0); Mean Corp Hgb Conc. 33.8 g/dL (33.0-37.0); Mean Corpuscular Volume 95.4 fL (81.0-99.0); Nucleated Red Blood Cells % 0 %; Platelet Count 533 10^3/uL (130-400); Red Cell Dist. Width 13.8 % (11.5-14.5)
[2024-11-08] MEDS: SINEMET CR 25-100 (EXTENDED RELEASE) 1 TABLET PO ×2 (10:10→19:40)
[2024-11-08] MEDS: ROXICODONE 10 MG PO ×3 (10:10→19:49)
[2024-11-08] MEDS: ATIVAN PO (10:57)
--- NOTE | 2024-11-08 11:47 | W.PN.HOSP.TC ---
Today's Communication/Plan
-
await result of appeal for SNF rehab
Assessment / Plan
Assessment / Plan
#Pain
11/04 Lumbar Spine MRI:
#Nondisplaced fracture of the sacrum at the level of S2.
#ACUTE BILATERAL SACRAL INSUFFICIENCY FRACTURES surrounded by severe bone marrow edema.
#MODERATE to SEVERE CENTRAL CANAL STENOSIS at L4/L5 secondary to a moderate-sized diffuse disc bulge and moderate to severe bilateral facet joint arthrosis.
#Mild grade 1 anterolisthesis of L5 on S1 secondary to severe left-sided facet joint arthrosis.
#gluteal calcific tendinitis adjacent to the left greater trochanter.
-Spoke to ortho - NSAIDS, steroids treatment of choice; PT/OT - f/u outpatient
-Spoke to Dr. Willoughby (Neurosurgery) regarding results of Lumbar Spine MRI, it was his recommendation to allow the sacral fracture to heal and if still having pain in 4-6 weeks, to set up an appointment to decide if surgical intervention is
appropriate
- Admit to med/surg
- PT/OT
- Consult case management
-will stop Medrol dose pack
- pain regimen - oxycodone to 10mg, increased baclofen to TID
�Toradol, morphine for breakthrough was added
-For tendinitis - may benefit from Intratrochanteric steroids outpatient
-11/06: Pt Clayton OCHOA ([phone]) in room and would like pt reevaluated for acute rehab. Discussed with PT/OT DOROTEO, (who had spoken to [facility] pt felt not to be appropriate for acute rehab)
11/07: insurance feels pt. not appropriate for SNF rehab, family will appeal. Believe SNF rehab is most appropriate and hopefully they will reverse their decision
Leukocytosis ? due to steroids- better
13.3-->9.7
Sacral fracture due to age-related osteoporosis in conjunction with blunt trauma associated with the prior fall
#Parkinson's disease, mild, stable
- continue carbidopa-levodopa
#hypercholesterolemia
- continue rosuvastatin
#hypothyroid
- continue levothyroxine
#depression/anxiety
- continue escitalopram and lorazepam
Psych consult appreciated: felt to be adjustment disorder with depression. Consider outpatient therapy upon return home.
Anticipated Discharge: 24 - 48 hours
Subjective/Interval History
-
Date of Service: November 08, 2024
Awake, alert, conversant
Objective Data
-
Labs:
Laboratory Results
11/08/24
07:09
WBC 9.7
Hgb 11.8 L
Hct 34.9 L
Plt Count 533 H
Vital Signs:
Vital Signs
Temp Pulse Resp BP Pulse Ox
97.5 F 81 18 122/73 99
11/08/24 07:00 11/08/24 07:46 11/08/24 07:00 11/08/24 07:46 11/08/24 07:00
I&O
11/07/24 11/08/24 11/09/24
06:59 06:59 06:59
Intake Total 480 / 480
Output Total 150 / 150
Balance 480 / 480 -150 / -150
Review of Systems
-
History Source: Patient and Family (Clayton, DON, cousin)
Constitutional: Reports No Symptoms
EENT: Reports No Symptoms Reported
Respiratory: Reports No Symptoms
Cardiac: Reports No Symptoms
Abdomen/GI: Reports Constipated (had a BM yesterday)
Musculoskeletal: Reports Joint Pain
Neuro: Reports Other (Parkinsonism)
Physical Exam
-
General: Well Developed; Negative Well Nourished (thin)
HEENT: Normocephalic and Atraumatic
Respiratory: Clear to Auscultation; Negative Wheezes, Rales or Rhonchi
Cardiac: Regular Rhythm and S1/S2
GI: Soft, Nontender and Nondistended
Musculoskeletal: No Clubbing, No Cyanosis and No Edema
Neuro: Awake, Alert and Other (mild cogwheel changes)
--- NOTE | 2024-11-08 11:47 | CM ---
CM reviewed chart, received call from Ruby at [facility]- insurance authorization for SNF to [facility] has been denied by [employer] as: patient is walking household distances without hands on assistance, feel as though additional therapy services
could be provided in the home- can call to appeal . Patient seen bedside with Dr. Howard, [facility], provided number to call for appeal. CM discussed if insurance does not approve appeal, patient can private pay for SNF, can provide
information regarding private caregiver information. CM will continue to follow for all discharge planning needs.
Plan; family to appeal insurance denial
[2024-11-08 15:15] VITALS: BP 153/71
[2024-11-08] MEDS: ZOFRAN 4 MG IV (15:24)
[2024-11-08] MEDS: LOVENOX SC (17:38)
--- NOTE | 2024-11-08 18:02 | CM ---
Made Dr. Howard aware that we are pursuing appealing denial of SNF, however patient on Wednesday was ambulating with PT 80 feet with a rolling walker and supervision and today during initial PT session she was only able to ambulate 10 feet, then needed
to stop due to pain. PT went back later today to try to ambulate her again and she complained of numbness in her legs per PT note and was unable to participate in session. I stated I was concerned with her decrease in her ambulation status and
complaints of numbness in her lower extremities. He stated he would call to discuss.
Outreach made to [employer] to discuss how to appeal denied SNF, as family was told when they called into [employer] that we should initiate new auth. We will await clarification from [employer] as to next steps in SNF appeal depending on patients ambulation and medical
status . Update to CM.
[2024-11-08] MEDS: SENOKOT 17.2 MG PO (21:49)
--- NOTE | 2024-11-08 22:00 | PTCARENOTE ---
Patient requested to ambulate with walker in hallway. Walked from room almost to the exit door on the back on the unit. Returned to room, patient walked around bed to side table before going to the bathroom and returning to bed.
[2024-11-08 23:15] VITALS: BP 138/62
[2024-11-09] MEDS: ROXICODONE 10 MG PO ×4 (00:35→19:47)
[2024-11-09] MEDS: TYLENOL 650 MG PO ×5 (00:35→17:51)
[2024-11-09] MEDS: TYLENOL PO ×2 (03:42→22:12)
[2024-11-09] MEDS: SYNTHROID 25 MCG PO (05:15)
[2024-11-09] MEDS: SINEMET 25-100 2 TABLET PO ×4 (06:39→19:46)
[2024-11-09 07:13] VITALS: BP 122/57
--- NOTE | 2024-11-09 07:48 | W.PN.REHAB ---
Today's Communication / Plan
-
Sacral fracture:
- Could consider tramadol 25 or 50 mg 4 times a day and titrating up to 100 mg if needed.
Moderate to severe central canal stenosis L4-L5 secondary to moderate size disc bulge and moderate to severe bilateral facet joint arthrosis: Given a course of steroids. Per neurosurgery allowing sacral fracture to heal and is still having concerns
in 4 to 6 weeks can have further evaluation for surgical intervention.
�-Can consider gabapentin 100 mg 3 times daily and titrate upwards.
DVT Prophylaxis: Patient on aspirin full dose and Lovenox.� Please confirm need for both medications. Likely was on full dose aspirin for DVT prophylaxis last month after hip replacement.
Discharge Destination:�intermediate facility. Patient still requiring min assist for transfers�and bed mobility. Also very limited with ability to ambulate secondary to pain. She is not able to care for herself at home and does not have the
appropriate support. She will need continued pain management in order to help maximize her ability to function. intermediate facility is the most appropriate discharge plan for her. Discussed with Dr. Howard.
Assessment/Function
-
Assessment:
General Appearance/Observation: Well-developed, well-nourished female in no apparent distress.�
Pain/Comfort Assessment: Sacral pain which can be pretty severe with activity
Mood/Affect: Appropriate�
Eyes: Conjunctiva/Lids: normal��� Pupils: pupils equal round
Cardiovascular: Heart: regular, no murmur�
Pulses: dorsalis pedis 2+ bilaterally�
Respiratory: Respiratory Effort/Chest Expansion: normal������ Auscultation: Clear to auscultation bilaterally
Gastrointestinal: abdomen not tender, no distension, normal abdominal bowel sounds
Genitourinary: No Lewis�
Extremities:�Edema: None�Cyanosis: None�Trophic�changes: None
�
Neurology Exam:
Orientation: Alert, Oriented to self, Time, Place�
Memory: Intact for recent medical concerns
Comprehension: Intact
Two step command: Intact
Cranial Nerves:
�� CN VII:�Facial movement: Symmetric
�� CN VIII:�Hearing: Normal
�� CN IX/X:�Speech & swallow: Normal
Sensory:
�� Light touch: Intact in bilateral upper and lower extremities except for mild decrease in the lateral left foot and base of toes
Musculoskeletal:Motor: (Manual muscle scale 0-5)�
Muscle SA EF WE EE FF FA HF KE DF EHL PF
Right� 5 5 3 4 5 5 5
Left 5 5 4 5 5 5 5
Has increased tone and tenderness over the bilateral tensor fascia millie, vastus lateralis and biceps femoris.
Tone: Normal in all extremities�
Range of Motion: Passively within functional limits in all extremities�except for right hip not tested with hip precautions
�
Function:
Bed Mobility: Min assist
Transfers: Min assist
Ambulation: Patient ambulated 10 feet with rolling walker taking 5 minutes due to multiple rest breaks and stretching of the left lower extremity due to pain deferred further mobility due to pain levels.
Steps:
ADL's:
Plan
-
Assessment
69-year-old F PMH (Parkinson's disease, hypercholesterolemia, hypothyroid, and depression/anxiety) presented to [facility] on 10/31/2024 with persistent pain and limited mobility. She had been evaluated 4 days prior and found to have a
sacral fracture at S2 and discharged home with oxycodone. Patient had another fall on 09/29/2024 after falling down the basement steps suffering a right proximal femur fracture status post right total hip arthroplasty by Dr. Yarbrough on 09/30/2024.
��
Plan�
PM&R�PT/OT to increase independence with ADLs, improve balance, coordination, endurance, strength, mobility, community reintegration, decreased burden of care on others and family education.�
�
Sacral fracture: Pain control with oxycodone and baclofen, activity as tolerated
-Given steroids to help with inflammation
-Oxycodone for pain. Receiving Tylenol 650 mg every 4 hours while awake. Could consider tramadol 25 milligrams 4 times a day and titrating up to 50 or 100 mg if needed.
Parkinson's disease: Sinemet
Right hip fracture s/p total hip arthroplasty: Monitor incision, pain control, hip precautions/incision care per orthopedics�
-Baclofen for muscle spasm and tenderness over the iliotibial band, vastus lateralis and biceps femoris. Heat to area just above the knee, avoiding lateral hip incision region.
- Patient in noted in bed with pillows behind knees. Instructed her to keep the knees more straight and although it helps with the initial tightness and pain in the leg it will make this worse overall.
Moderate to severe central canal stenosis L4-L5 secondary to moderate size disc bulge and moderate to severe bilateral facet joint arthrosis: Given a course of steroids. Per neurosurgery allowing sacral fracture to heal and is still having concerns
in 4 to 6 weeks can have further evaluation for surgical intervention.
- Has some decreased sensation left lateral foot and base of toes with normal strength. Can consider gabapentin 100 mg 3 times daily and titrate upwards.
�
HLD: Statin�
Hypothyroidism: Levothyroxine
Normocytic anemia: Stable in the 11 range.� Monitor.�
Alopecia: Minoxidil
Anxiety/depression: Lexapro 20 mg daily, Ativan daily at 1100. Adjust medications as needed.�
Bowel: Colace and Senna, PRN bisacodyl.�
Bladder: Voiding without difficulty
DVT Prophylaxis: Mechanical. Patient appears to be on aspirin full dose and Lovenox.� Please confirm need for both medications. Likely was on full dose aspirin for DVT prophylaxis last month after hip replacement.
Pulmonary: Incentive spirometry�
Safety: Continue to reinforce assistance with all transfers.�
Code Status:� Full code
�Discharge Destination:�intermediate facility. Patient still requiring min assist for transfers�and bed mobility. Also very limited with ability to ambulate secondary to pain. She is not able to care for herself at home and does not have the
appropriate support. She will need continued pain management in order to help maximize her ability to function. intermediate facility is the most appropriate discharge plan for her. Discussed with Dr. Howard. A total of 50 minutes were spent
with the patient preparing for the evaluation, obtaining history, performing examination and evaluation, counseling, data review, case management, care coordination, purchase order checker, and EMR documentation. Reviewing various pain concerns, concerns with
being able to be on her own and process for fpc facility review.
Subjective
-
Patient seen and examined today. Overall continues to be limited by pain. She is unable to get up on her own and is limited with ambulation. She does not have support at home. She notes of having a little bit of decreased sensation over the
lateral ankle and bottom of the foot. She can still feel touching. No radiating pain. Does have pain also significantly over the lateral thigh above the knee with tenderness to touch crampiness. Denies any fevers, chills, chest pain, shortness
of breath, nausea, vomiting, abdominal pain, dysuria, or diarrhea.
Vital Signs / Labs
-
Vital Signs and Labs:
Temp Pulse Resp BP Pulse Ox
97.6 F 83 16 138/62 100
11/08/24 23:15 11/08/24 23:15 11/08/24 23:15 11/08/24 23:15 11/08/24 23:15
11/08/24 07:09
11/07/24 06:56
11/08/24
07:09
RBC 3.66 L
Hgb 11.8 L
Hct 34.9 L
MCH 32.2 H
Plt Count 533 H
Abs Immat Gran (auto) 0.1 H
Absolute Monos (auto) 0.7 H
MRI lumbar spine without contrast 11/04/2024
IMPRESSION:
1. ACUTE BILATERAL SACRAL INSUFFICIENCY FRACTURES surrounded by severe bone marrow edema.
2. MODERATE to SEVERE CENTRAL CANAL STENOSIS at L4/L5 secondary to a moderate-sized diffuse disc bulge and moderate to severe bilateral facet joint arthrosis.
3. Mild grade 1 anterolisthesis of L5 on S1 secondary to severe left-sided facet joint arthrosis.
4. Moderate discogenic degenerative disease at L1/L2.
[2024-11-09] MEDS: LONITEN 2.5 MG PO (08:16)
[2024-11-09] MEDS: COLACE 100 MG PO ×2 (08:16→19:47)
[2024-11-09] MEDS: ASPIRIN 325 MG PO (08:17)
[2024-11-09] MEDS: CRESTOR 10 MG PO (08:17)
[2024-11-09] MEDS: PROSCAR 5 MG PO (08:17)
[2024-11-09] MEDS: LIORESAL 5 MG PO ×3 (08:17→22:13)
[2024-11-09] MEDS: PROTONIX 40 MG PO (08:17)
[2024-11-09] MEDS: LEXAPRO 20 MG PO (08:18)
[2024-11-09] MEDS: SINEMET CR 25-100 (EXTENDED RELEASE) 1 TABLET PO ×2 (11:18→19:46)
[2024-11-09] MEDS: ATIVAN 1 MG PO (11:18)
--- NOTE | 2024-11-09 13:41 | W.PN.HOSP.TC ---
Addendum entered and electronically signed by Richard Howard MD 11/09/24 13:56:
will start Neurontin as per recommendation of Dr. Roman
Original Note:
Today's Communication/Plan
-
await appeal of SNF rehab denial
UA
Assessment / Plan
Assessment / Plan
#Pain
11/04 Lumbar Spine MRI:
#Nondisplaced fracture of the sacrum at the level of S2.
#ACUTE BILATERAL SACRAL INSUFFICIENCY FRACTURES surrounded by severe bone marrow edema.
#MODERATE to SEVERE CENTRAL CANAL STENOSIS at L4/L5 secondary to a moderate-sized diffuse disc bulge and moderate to severe bilateral facet joint arthrosis.
#Mild grade 1 anterolisthesis of L5 on S1 secondary to severe left-sided facet joint arthrosis.
#gluteal calcific tendinitis adjacent to the left greater trochanter.
-Spoke to ortho - NSAIDS, steroids treatment of choice; PT/OT - f/u outpatient
-Spoke to Dr. Willoughby (Neurosurgery) regarding results of Lumbar Spine MRI, it was his recommendation to allow the sacral fracture to heal and if still having pain in 4-6 weeks, to set up an appointment to decide if surgical intervention is
appropriate
- Admit to med/surg
- PT/OT
- Consult case management
-will stop Medrol dose pack
- pain regimen - oxycodone to 10mg, increased baclofen to TID
�Toradol, morphine for breakthrough was added
-For tendinitis - may benefit from Intratrochanteric steroids outpatient
-11/06: Pt Clayton OCHOA ([phone]) in room and would like pt reevaluated for acute rehab. Discussed with PT/OT DOROTEO, (who had spoken to Ray pt felt not to be appropriate for acute rehab)
11/07: insurance feels pt. not appropriate for SNF rehab, family will appeal. Believe SNF rehab is most appropriate and hopefully they will reverse their decision. 11/[address] Roman, agrees with need for SNF rehab. Pt very clear
that she has difficulty getting out of chair as her most severe issue
Leukocytosis ? due to steroids- better
13.3-->9.7
Hx of UTI's in the past, will recheck UA
Sacral fracture due to age-related osteoporosis in conjunction with blunt trauma associated with the prior fall
#Parkinson's disease, mild, stable
- continue carbidopa-levodopa
#hypercholesterolemia
- continue rosuvastatin
#hypothyroid
- continue levothyroxine
#depression/anxiety
- continue escitalopram and lorazepam
Psych consult appreciated: felt to be adjustment disorder with depression. Consider outpatient therapy upon return home.
reviewed with DON Arnold 11/09
Anticipated Discharge: 24 - 48 hours
Subjective/Interval History
-
Date of Service: November 09, 2024
Awake, alert, sitting in chair
Objective Data
-
Vital Signs:
Vital Signs
Temp Pulse Resp BP Pulse Ox
98 F 77 14 122/57 97
11/09/24 07:13 11/09/24 07:13 11/09/24 07:13 11/09/24 08:16 11/09/24 08:00
I&O
11/08/24 11/09/24 11/10/24
06:59 06:59 06:59
Intake Total 960 / 960
Output Total 150 / 150
Balance -150 / -150 960 / 960
Review of Systems
-
History Source: Patient and Family (DON Arnold, cousin)
Constitutional: Reports No Symptoms
EENT: Reports No Symptoms Reported
Respiratory: Reports No Symptoms
Cardiac: Reports No Symptoms
Abdomen/GI: Reports Constipated (had a BM today)
Musculoskeletal: Reports Joint Pain
Neuro: Reports Other (Parkinsonism)
Physical Exam
-
General: Well Developed; Negative Well Nourished (thin)
HEENT: Normocephalic and Atraumatic
Respiratory: Clear to Auscultation; Negative Wheezes, Rales or Rhonchi
Cardiac: Regular Rhythm and S1/S2
GI: Soft, Nontender and Nondistended
Musculoskeletal: No Clubbing, No Cyanosis and No Edema
Neuro: Awake, Alert and Other (mild cogwheel changes)
[2024-11-09] MEDS: NEURONTIN 100 MG PO ×2 (17:51→22:13)
[2024-11-09] MEDS: LOVENOX SC (17:57)
[2024-11-09 19:59] VITALS: BP 112/60
[2024-11-09] MEDS: SENOKOT 17.2 MG PO (22:13)
[2024-11-09 23:05] VITALS: BP 104/59
[2024-11-10] MEDS: TYLENOL PO ×4 (04:00→23:52)
[2024-11-10 06:15] VITALS: BP 147/69
[2024-11-10] MEDS: SYNTHROID 25 MCG PO (06:17)
[2024-11-10] MEDS: SINEMET 25-100 2 TABLET PO ×4 (06:17→19:19)
[2024-11-10] MEDS: ROXICODONE 10 MG PO ×3 (06:23→16:47)
[2024-11-10 07:08] VITALS: BP 142/68
[2024-11-10 08:46] LABS: Hematocrit 34.2 % (37.0-47.0); Hemoglobin 11.4 g/dL (12.0-16.0); Mean Corp Hgb Conc. 33.3 g/dL (33.0-37.0); Mean Corpuscular Volume 96.3 fL (81.0-99.0); Nucleated Red Blood Cells % 0 %; Platelet Count 488 10^3/uL (130-400); Red Cell Dist. Width 14.2 % (11.5-14.5)
[2024-11-10 09:26] LABS: Blood Urea Nitrogen 26 mg/dl (7-17); Calcium 9.1 mg/dl (8.4-10.2); Carbon Dioxide 27 mmol/L (22-30); Chloride 105 mmol/L (98-107); Estimated Creatinine Clearance 65 ml/min; Glucose 83 mg/dl (70-99); Potassium 4.2 mmol/L (3.5-5.1); Sodium 139 mmol/L (135-145); eGFR > 60.00
[2024-11-10] MEDS: TYLENOL 650 MG PO ×3 (10:25→19:19)
[2024-11-10] MEDS: PROTONIX 40 MG PO (10:26)
[2024-11-10] MEDS: LEXAPRO 20 MG PO (10:26)
[2024-11-10] MEDS: LIORESAL 5 MG PO ×3 (10:26→21:03)
[2024-11-10] MEDS: ATIVAN 1 MG PO (10:26)
[2024-11-10] MEDS: PROSCAR PO ×2 (10:27→10:48)
[2024-11-10] MEDS: ASPIRIN 325 MG PO (10:27)
[2024-11-10] MEDS: COLACE 100 MG PO ×2 (10:27→19:19)
[2024-11-10] MEDS: NEURONTIN 100 MG PO ×3 (10:28→21:03)
[2024-11-10] MEDS: CRESTOR 10 MG PO (10:30)
[2024-11-10] MEDS: LONITEN PO ×2 (10:30→10:45)
[2024-11-10] MEDS: SINEMET CR 25-100 (EXTENDED RELEASE) 1 TABLET PO ×2 (10:54→19:23)
--- NOTE | 2024-11-10 11:25 | CM ---
Call received from Isabel at [facility] Medicare Member appeals. She apologized for the delay in getting back to us. She requested that we fax her patient's most recent progress Physician progress notes, Consults including PMR, History and Physical,
Physical,Occupational and Speech Therapy evals and progress notes. CM notes . Any x-rays or imaging reports. Isabel's fax number is [phone]. Isabel stated that they will most likely make a determination on the member appeal today. Update
to to fax copy of requested clinical information.
[2024-11-10] MEDS: LONITEN 2.5 MG PO (11:33)
[2024-11-10] MEDS: PROSCAR 5 MG PO (11:33)
--- NOTE | 2024-11-10 11:52 | CM ---
All physician notes, PT/OT notes sent to Isabel via fax to [phone] for determination for SNF transfer.
Awaiting authorization approval.
--- NOTE | 2024-11-10 13:55 | CM ---
Addendum entered by Cesia Islas 11/10/24 16:05:
[facility] authorization approved for 11/11-11/16/2024 per Isabel Pagan ([phone]) Authorization #[id number]. Will need ambulance transport to [facility] where they have a bed available for 11/11/2024.
[facility] Report: [phone]
[facility]
Original Note:
spoke with Thalia Mckeon who called for an update regarding transfer to [facility] today. Update provided, advised we sent records to [facility] and are awaiting final determination.
--- NOTE | 2024-11-10 14:46 | W.PN.HOSP.TC ---
Today's Communication/Plan
-
await insurance appeal
Assessment / Plan
Assessment / Plan
#Pain
11/04 Lumbar Spine MRI:
#Nondisplaced fracture of the sacrum at the level of S2.
#ACUTE BILATERAL SACRAL INSUFFICIENCY FRACTURES surrounded by severe bone marrow edema.
#MODERATE to SEVERE CENTRAL CANAL STENOSIS at L4/L5 secondary to a moderate-sized diffuse disc bulge and moderate to severe bilateral facet joint arthrosis.
#Mild grade 1 anterolisthesis of L5 on S1 secondary to severe left-sided facet joint arthrosis.
#gluteal calcific tendinitis adjacent to the left greater trochanter.
-Spoke to ortho - NSAIDS, steroids treatment of choice; PT/OT - f/u outpatient
-Spoke to Dr. Willoughby (Neurosurgery) regarding results of Lumbar Spine MRI, it was his recommendation to allow the sacral fracture to heal and if still having pain in 4-6 weeks, to set up an appointment to decide if surgical intervention is
appropriate
- PT/OT
- Consult case management
-will stop Medrol dose pack
- pain regimen - oxycodone to 10mg, increased baclofen to TID
�Toradol stopped morphine for breakthrough was added
Neurontin 100 mg tid added as per recommendations of Dr. Roman
-For tendinitis - may benefit from Intratrochanteric steroids outpatient
-11/06: Pt Clayton OCHOA ([phone]) in room and would like pt reevaluated for acute rehab. Discussed with PT/OT DOROTEO, (who had spoken to Ray, pt felt not to be appropriate for acute rehab)
11/07: insurance feels pt. not appropriate for SNF rehab, family will appeal. Believe SNF rehab is most appropriate and hopefully they will reverse their decision. 11/[address] Roman, agrees with need for SNF rehab. Pt very clear
that she has difficulty getting out of chair as her most severe issue
Leukocytosis ? due to steroids- better
13.3-->9.7-->9.3
Hx of UTI's in the past, will recheck UA pending
Sacral fracture due to age-related osteoporosis in conjunction with blunt trauma associated with the prior fall
#Parkinson's disease, mild, stable
- continue carbidopa-levodopa
#hypercholesterolemia
- continue rosuvastatin
#hypothyroid
- continue levothyroxine
#depression/anxiety
- continue escitalopram and lorazepam
Psych consult appreciated: felt to be adjustment disorder with depression. Consider outpatient therapy upon return home.
reviewed with DON Arnold 11/09, 11/10
discussed with CM
Anticipated Discharge: 24 - 48 hours
Subjective/Interval History
-
Date of Service: November 10, 2024
Still with very limited ability to ambulate and virtually no ability to get out of a sitting position to stand
Objective Data
-
Labs:
Laboratory Results
11/10/24
07:23
WBC 9.3
Hgb 11.4 L
Hct 34.2 L
Plt Count 488 H
Sodium 139
Potassium 4.2
Chloride 105
Carbon Dioxide 27
BUN 26 H
Creatinine 0.6
Glucose 83
Calcium 9.1
Vital Signs:
Vital Signs
Temp Pulse Resp BP Pulse Ox
97.7 F 81 16 142/68 100
11/10/24 07:08 11/10/24 07:08 11/10/24 07:08 11/10/24 07:08 11/10/24 07:08
I&O
11/09/24 11/10/24 11/11/24
06:59 06:59 06:59
Intake Total 960 / 960
Output Total 150 / 150
Balance 960 / 960 -150 / -150
Review of Systems
-
History Source: Patient and Family (DON Arnold, cousin)
Constitutional: Reports No Symptoms
EENT: Reports No Symptoms Reported
Respiratory: Reports No Symptoms
Cardiac: Reports No Symptoms
Musculoskeletal: Reports Joint Pain
Neuro: Reports Other (Parkinsonism)
Physical Exam
-
General: Well Developed; Negative Well Nourished (thin)
HEENT: Normocephalic and Atraumatic
Respiratory: Clear to Auscultation; Negative Wheezes, Rales or Rhonchi
Cardiac: Regular Rhythm and S1/S2
GI: Soft, Nontender and Nondistended
Musculoskeletal: No Clubbing, No Cyanosis and No Edema
Neuro: Awake, Alert and Other (mild cogwheel changes)
[2024-11-10 15:06] LABS: Urine Character Clear (Clear)
[2024-11-10 15:10] VITALS: BP 111/58
[2024-11-10 15:19] LABS: Urine Squamous Cell 0-2 /LPF (Few)
[2024-11-10 15:20] LABS: Urine Red Blood Cell 0-2 /HPF (0-2)
[2024-11-10] MEDS: LOVENOX 40 MG SC (16:49)
[2024-11-10] MEDS: SENOKOT 17.2 MG PO (21:03)
[2024-11-10 23:08] VITALS: BP 131/60
[2024-11-11] MEDS: TYLENOL PO ×2 (03:26→11:44)
[2024-11-11] MEDS: SYNTHROID 25 MCG PO (05:01)
[2024-11-11 07:00] VITALS: BP 182/86
[2024-11-11] MEDS: SINEMET 25-100 2 TABLET PO ×3 (07:29→14:27)
[2024-11-11 08:00] VITALS: BP 130/70
[2024-11-11] MEDS: ROXICODONE 10 MG PO (08:25)
[2024-11-11] MEDS: COLACE 100 MG PO (09:40)
[2024-11-11] MEDS: SINEMET CR 25-100 (EXTENDED RELEASE) 1 TABLET PO (09:40)
[2024-11-11] MEDS: PROSCAR 5 MG PO (09:40)
[2024-11-11] MEDS: LONITEN 2.5 MG PO (09:40)
[2024-11-11] MEDS: LIORESAL 5 MG PO ×2 (09:41→17:01)
[2024-11-11] MEDS: PROTONIX 40 MG PO (09:41)
[2024-11-11] MEDS: TYLENOL 650 MG PO ×2 (09:41→14:30)
[2024-11-11] MEDS: CRESTOR 10 MG PO (09:41)
[2024-11-11] MEDS: NEURONTIN 100 MG PO ×2 (09:42→17:02)
[2024-11-11] MEDS: LEXAPRO 20 MG PO (09:43)
[2024-11-11] MEDS: ASPIRIN 325 MG PO (09:43)
[2024-11-11] MEDS: ATIVAN 1 MG PO (10:31)
--- NOTE | 2024-11-11 11:24 | CM ---
Patient for d/c today to [facility]
Spoke w/ Belen/nurse supervisor brew [employer], aware of patient's admission today. CM provided approved auth information. Requesting 3 pm or later transport time
Ambulance transport at 3:30 pm
[employer] [facility] Report: [phone]
[facility] [facility]
Plan: D/c today to [facility]
--- NOTE | 2024-11-11 12:22 | W.PN.HOSP.TC ---
Today's Communication/Plan
-
dc to SNF now
Assessment / Plan
Assessment / Plan
#Pain
11/04 Lumbar Spine MRI:
#Nondisplaced fracture of the sacrum at the level of S2.
#ACUTE BILATERAL SACRAL INSUFFICIENCY FRACTURES surrounded by severe bone marrow edema.
#MODERATE to SEVERE CENTRAL CANAL STENOSIS at L4/L5 secondary to a moderate-sized diffuse disc bulge and moderate to severe bilateral facet joint arthrosis.
#Mild grade 1 anterolisthesis of L5 on S1 secondary to severe left-sided facet joint arthrosis.
#gluteal calcific tendinitis adjacent to the left greater trochanter.
-Spoke to ortho - NSAIDS, steroids treatment of choice; PT/OT - f/u outpatient
-Spoke to Dr. Willoughby (Neurosurgery) regarding results of Lumbar Spine MRI, it was his recommendation to allow the sacral fracture to heal and if still having pain in 4-6 weeks, to set up an appointment to decide if surgical intervention is
appropriate
- PT/OT
- Consult case management
-will stop Medrol dose pack
- pain regimen - oxycodone to 10mg, increased baclofen to TID
�Toradol stopped morphine for breakthrough was added
Neurontin 100 mg tid added as per recommendations of Dr. Roman
-For tendinitis - may benefit from Intratrochanteric steroids outpatient
-11/06: Pt Clayton OCHOA ([phone]) in room and would like pt reevaluated for acute rehab. Discussed with PT/OT DOROTEO, (who had spoken to Ray, pt felt not to be appropriate for acute rehab)
11/07: insurance feels pt. not appropriate for SNF rehab, family will appeal. Believe SNF rehab is most appropriate and hopefully they will reverse their decision. 11/[address] Roman, agrees with need for SNF rehab. Pt very clear
that she has difficulty getting out of chair as her most severe issue
Leukocytosis ? due to steroids- better
13.3-->9.7-->9.3
Hx of UTI's in the past, UA negative
Sacral fracture due to age-related osteoporosis in conjunction with blunt trauma associated with the prior fall
#Parkinson's disease, mild, stable
- continue carbidopa-levodopa
#hypercholesterolemia
- continue rosuvastatin
#hypothyroid
- continue levothyroxine
#depression/anxiety
- continue escitalopram and lorazepam
Psych consult appreciated: felt to be adjustment disorder with depression. Consider outpatient therapy upon return home.
reviewed with DON Arnold 11/09, 11/10
discussed with DOROTEO, able to be dc to [facility] today
More than 30 minutes spent in discharge including
Final examination of the patient
Summarizing hospital stay
Instructions for continuing care to all relevant caregivers
Preparation of discharge records, prescriptions, and referral forms
Total time spent (in minutes): 45
Anticipated Discharge: Today
Subjective/Interval History
-
Date of Service: November 11, 2024
Still with significant pain
Objective Data
-
Vital Signs:
Vital Signs
Temp Pulse Resp BP Pulse Ox
97.9 F 79 16 130/70 99
11/11/24 07:00 11/11/24 07:00 11/11/24 07:00 11/11/24 08:00 11/11/24 07:00
I&O
11/10/24 11/11/24 11/12/24
06:59 06:59 06:59
Intake Total 720 / 720
Output Total 150 / 150 100 / 100
Balance -150 / -150 620 / 620
Review of Systems
-
History Source: Patient and Family (DON Arnold, cousin)
Constitutional: Reports No Symptoms
EENT: Reports No Symptoms Reported
Respiratory: Reports No Symptoms
Cardiac: Reports No Symptoms
Musculoskeletal: Reports Joint Pain
Neuro: Reports Other (Parkinsonism)
Physical Exam
-
General: Well Developed; Negative Well Nourished (thin)
HEENT: Normocephalic and Atraumatic
Respiratory: Clear to Auscultation; Negative Wheezes, Rales or Rhonchi
Cardiac: Regular Rhythm and S1/S2
GI: Soft, Nontender and Nondistended
Musculoskeletal: No Clubbing, No Cyanosis and No Edema
Neuro: Awake, Alert and Other (mild cogwheel changes)
[2024-11-11] MEDS: ROXICODONE PO (14:42)
--- NOTE | 2024-11-11 14:49 | W.DS.TRANS ---
DC Summary - [employer]
-
Discharge Instructions:
Discharge Diagnosis/Procedures sacral fx
pain
Diet Regular
Activity As tolerated,With assistance
Driving Restrictions No driving
Blood Work cbc and cmp in 1 week
Instructions:
Stand-Alone Forms:
Changes to Home Medications: Yes
Discharge Medications:
DC Medications w/original date entered in [facility]
escitalopram oxalate 20 mg tablet (Lexapro) 20 mg PO DAILY Mental Health/Anxiety 09/29/24
finasteride 5 mg tablet 5 mg PO DAILY Urinary Issue 09/29/24
levothyroxine 25 mcg tablet (Synthroid) 25 mcg PO DAILY Thyroid 09/29/24
minoxidil 2.5 mg tablet 2.5 mg PO DAILY Blood Pressure 09/29/24
rosuvastatin 10 mg tablet 10 mg PO DAILY High Cholesterol 09/29/24
acetaminophen 500 mg tablet (Tylenol Extra Strength) 1,000 mg (2 x 500 mg) PO TID #30 tabs 10/03/24
aspirin 325 mg tablet 325 mg PO DAILY #30 tabs 10/03/24
docusate sodium 100 mg capsule 100 mg PO BID #30 caps 10/03/24
carbidopa 25 mg-levodopa 100 mg tablet 2 tab PO QID@07,10,14,1930 10/31/24
carbidopa ER 25 mg-levodopa 100 mg tablet,extended release 1 tab PO BID@1000,0 10/31/24
ibuprofen 200 mg tablet (Advil) 800 mg PO BID 10/31/24
lorazepam 1 mg tablet (Ativan) 1 mg PO DAILY@1100 anxiety 10/31/24
baclofen 5 mg tablet 5 mg PO TID #0 tabs 11/03/24
gabapentin 100 mg capsule (Neurontin) 100 mg PO TID #90 caps 11/11/24
oxycodone 10 mg tablet 10 mg PO Q4H PRN Pain #14 tabs 11/11/24
Home Medication Changes
Neurontin started
Baclofen started
Pending Results: No
[2024-11-11 15:00] VITALS: BP 149/68
[2024-11-11] MEDS: ROXICODONE 5 MG PO (15:10)
== END 2024-11-11 17:15 | DRG 544 ==
LOC: 4 WEST ACU 15:05
PROVIDERS: Internal Medicine; Physician Assistant; ADMITTING PHYSICIAN Internal Medicine; ATTENDING PHYSICIAN Internal Medicine; CONSULT PHYSICIAN Physical Medicine & Rehabilitation; EMERGENCY PHYSICIAN Emergency Medicine; FAMILY PHYSICIAN Internal Medicine; OTHER PHYSICIAN Psychiatry & Neurology Psychiatry
DX: M80.08XA Age-related osteoporosis with current pathological fracture, vertebra(e), initial encounter for fracture (principal); M51.26 Other intervertebral disc displacement, lumbar region; M76.02 Gluteal tendinitis, left hip; M48.061 Spinal stenosis, lumbar region without neurogenic claudication; M47.897 Other spondylosis, lumbosacral region; G20.A1 Parkinson's disease without dyskinesia, without mention of fluctuations; E03.9 Hypothyroidism, unspecified; E78.00 Pure hypercholesterolemia, unspecified; D64.9 Anemia, unspecified; L65.9 Nonscarring hair loss, unspecified; F32.A Depression, unspecified; R26.2 Difficulty in walking, not elsewhere classified; F41.9 Anxiety disorder, unspecified; Z66 Do not resuscitate; Z79.899 Other long term (current) drug therapy
CPT/HCPCS: 72148; 73552; 80048; 80053; 81003; 81015; 85025; 85027; 93005; 97116; 97167; 97530; 97535; 99284

== ENCOUNTER → 2024-11-17 11:42 | Outpatient (REF) | payer OTHER, SELFPAY ==
[2024-11-17 12:44] LABS: Hematocrit 31.0 % (37.0-47.0); Hemoglobin 10.2 g/dL (12.0-16.0); Mean Corp Hgb Conc. 32.9 g/dL (33.0-37.0); Mean Corpuscular Volume 97.2 fL (81.0-99.0); Nucleated Red Blood Cells % 0 %; Platelet Count 362 10^3/uL (130-400); Red Cell Dist. Width 14.1 % (11.5-14.5)
[2024-11-17 13:50] LABS: ALT (SGPT) < 10 U/L (0-35); AST (SGOT) 21 U/L (14-36); Albumin 3.7 g/dl (3.5-5.0); Alkaline Phosphatase 169 U/L (38-126); Blood Urea Nitrogen 22 mg/dl (7-17); Calcium 8.9 mg/dl (8.4-10.2); Carbon Dioxide 24 mmol/L (22-30); Chloride 110 mmol/L (98-107); Glucose 79 mg/dl (70-99); Potassium 4.3 mmol/L (3.5-5.1); Sodium 140 mmol/L (135-145); Total Protein 6.3 g/dl (6.3-8.2); eGFR > 60.00
== END ==
LOC: OLABP 11:42
PROVIDERS: ATTENDING PHYSICIAN Family Medicine
DX: S72.001D Fracture of unspecified part of neck of right femur, subsequent encounter for closed fracture with routine healing (principal); E03.9 Hypothyroidism, unspecified
CPT/HCPCS: 36415; 80053; 85025

== ENCOUNTER 2025-01-30 18:36 | Observation (INO) | payer OTHER, SELFPAY ==
[2025-01-30] VITALS (7 sets, daily range): BP systolic 138–168; BP diastolic 64–72; BMI 18.4
--- NOTE | 2025-01-30 13:53 | ED.GENMED ---
History of Present Illness
<Moises Lake PA-C - Last Filed: 01/30/25 17:17>
General
Chief Complaint: Medication Reaction
Source: patient
Exam Limitations: none
Time Seen by Provider: 01/30/25 13:29
History of Present Illness
History of Present Illness:
69-year-old female history of Parkinson's presents complaining of fatigue shakiness and jitteriness starting this morning after taking 2 tablets of Tylenol with codeine. She took it as prescribed which was a new prescription for her last night.
She feels as though she is reacting to the medication. This prevented her from taking her first dose of her Sinemet for her Parkinson's and feels as though this is exacerbating her shakiness. No chest pain.
Past History
<MAIA Rogel Last Filed: 01/30/25 17:17>
Past History
ED Past Medical History: Hypercholesterolemia, Hypothyroidism and Other (Parkinson's disease)
Social History
Tobacco: Non-smoker
Personal:
Living: with family
Employment: Employed
Phy Exam
<MAIA Rogel Last Filed: 01/30/25 17:17>
Physical Exam
Physical Exam:
General: Well-appearing female no acute distress
HEENT normal cephalic atraumatic heart: Regular rate and rhythm
Lungs: Clear no wheeze
Abdomen is soft nontender
Extremities: No cyanosis or edema
Course
<MAIA Rogel Last Filed: 01/30/25 17:17>
Orders/Labs/Results
Orders:
Orders
01/30/25 13:53
0.9% Sodium Chloride 1000 ml [Nss] 1,000 ml IV BOLUS
01/30/25 14:04
Carbidopa/Levodopa Cr [Sinemet Cr 25-100 (Extended Release)] 2 tablet PO NOW STA
01/30/25 14:16
Complete Blood Count/With Diff Urgent
Comprehensive Metabolic Panel Urgent
Urinalysis Reflex To Culture Urgent
Date Specimen was Collected: 01/30/25
Time Specimen was Collected: 14:02
Urine Microscopic Reflex Cult Urgent
01/30/25 14:21
Carbidopa/Levodopa [Sinemet 25-100] 2 tablet PO NOW STA
Abnormal Lab Results
01/30/25
14:16
RBC 3.94 L 10^6/uL
(4.20-5.40)
MCH 31.5 H pg
(27.0-31.0)
MCHC 32.6 L g/dL
(33.0-37.0)
Absolute Neuts (auto) 6.6 H 10^3/uL
(1.4-6.5)
Absolute Monos (auto) 0.7 H 10^3/uL
(0.1-0.6)
Neutrophils % 75.7 H %
(42.2-75.2)
Lymphocytes % 14.8 L %
(20.5-51.1)
BUN 21 H mg/dl
(7-17)
Glucose 111 H mg/dl
(70-99)
Urine RBC 3-6 A /HPF
(0-2)
Urine Bacteria (Reflex) Few A
(Negative)
Urine Albumin (Reflex) 1+ A
(Neg - Trace)
01/30/25 14:16
01/30/25 14:16
Vital Signs
Initial and Last Documented VS:
Initial Vital Signs
Pulse Resp BP
81 20 167/64
01/30/25 12:25 01/30/25 12:25 01/30/25 12:25
Last Documented Vital Signs
Temp Pulse Resp BP Pulse Ox
98.4 F 73 11 167/64 100
01/30/25 12:29 01/30/25 12:30 01/30/25 12:30 01/30/25 12:29 01/30/25 13:55
<Richard Rogel MD - Last Filed: 01/30/25 17:32>
Orders/Labs/Results
Orders:
Orders
01/30/25 13:53
0.9% Sodium Chloride 1000 ml [Nss] 1,000 ml IV BOLUS
01/30/25 14:04
Carbidopa/Levodopa Cr [Sinemet Cr 25-100 (Extended Release)] 2 tablet PO NOW STA
01/30/25 14:16
Complete Blood Count/With Diff Urgent
Comprehensive Metabolic Panel Urgent
Urinalysis Reflex To Culture Urgent
Date Specimen was Collected: 01/30/25
Time Specimen was Collected: 14:02
Urine Microscopic Reflex Cult Urgent
01/30/25 14:21
Carbidopa/Levodopa [Sinemet 25-100] 2 tablet PO NOW STA
Abnormal Lab Results
01/30/25
14:16
RBC 3.94 L 10^6/uL
(4.20-5.40)
MCH 31.5 H pg
(27.0-31.0)
MCHC 32.6 L g/dL
(33.0-37.0)
Absolute Neuts (auto) 6.6 H 10^3/uL
(1.4-6.5)
Absolute Monos (auto) 0.7 H 10^3/uL
(0.1-0.6)
Neutrophils % 75.7 H %
(42.2-75.2)
Lymphocytes % 14.8 L %
(20.5-51.1)
BUN 21 H mg/dl
(7-17)
Glucose 111 H mg/dl
(70-99)
Urine RBC 3-6 A /HPF
(0-2)
Urine Bacteria (Reflex) Few A
(Negative)
Urine Albumin (Reflex) 1+ A
(Neg - Trace)
01/30/25 14:16
01/30/25 14:16
Vital Signs
Initial and Last Documented VS:
Initial Vital Signs
Pulse Resp BP
81 20 167/64
01/30/25 12:25 01/30/25 12:25 01/30/25 12:25
Last Documented Vital Signs
Temp Pulse Resp BP Pulse Ox
98.4 F 73 11 167/64 100
01/30/25 12:29 01/30/25 12:30 01/30/25 12:30 01/30/25 12:29 01/30/25 13:55
<Moises Lake PA-C - Last Filed: 01/30/25 17:17>
MDM/Problems Addressed
Differential Diagnosis Includes:
Patient with fatigue shakiness likely related to taking 2 tablets of Tylenol 3 earlier this morning and subsequently missing her first dose of Sinemet for Parkinson's.
Will check labs for electrolyte abnormality or anemia. Will hydrate order urinalysis and order her 2 PM dose of Sinemet.
<Moises Lake PA-C - Last Filed: 01/30/25 17:17>
*Pulse Oximetry
SaO2: 100
Oxygen Mode of Delivery: Room air
Patient hypoxic: no
*Critical Care Note
Total Time (30-74mins, 75-104mins- exclusive of procedures): Not Applicable
<Moises Lake PA-C - Last Filed: 01/30/25 17:17>
Update Note
Update Note:
Patient reevaluated. Still very weak and requiring significant assistance to get to the bathroom. Patient uncomfortable with discharge. She is now accompanied by her family member and power of litigation attorney associate who feels as though she cannot manage care
of herself at home. Labs reviewed without significant finding. Urinalysis without infection. Discussed with emergency room attending. Will admit for weakness and physical therapy evaluation. Consider medication adverse reaction versus
Parkinson's flare
ED Attending Note
<Moises Lake PA-C - Last Filed: 01/30/25 17:17>
-
Portions of this chart may have been created with voice recognition software.� Occasional wrong word or��sound alike� substitutions may have occurred due to the inherent limitations of voice recognition software.
<Richard Rogel MD - Last Filed: 01/30/25 17:32>
ED Attending Note
Patient seen and examined by attending physician: Yes
I performed the substantive portion of visit, reviewed & personally made and approve the management plan that is documented in note by myself or CHARLOTTE.: Yes
ED Attending Note:
69-year-old female ongoing sacral pain. Hip fracture months ago. Presents with general fatigue weakness inability to ambulate after starting Tylenol 3 last night. No fever chills abdominal pain urinary symptoms or other complaints.
69-year-old female in no distress. Generally weak appearing. Lungs clear and equal. Heart regular rate and rhythm no murmur. Abdomen soft and nontender. Warm and dry. Perfusing well. Nonfocal. Good lower extremity strength. No bowel or
bladder issues.
Labs are stable. Previous records reviewed. Symptoms most consistent with medication issue. However given that she needed significant assistance with ambulation warrants inpatient management
Discharge Plan
Departure
Patient Disposition: Admit
Date of Disposition: 01/30/25
Time of Disposition: 17:16
Presentation/result/management discussed w/ accepting MD/DO: Hospitalist
Discharge Problem:
Generalized weakness
Prescriptions:
No Action
minoxidil 2.5 mg Tablet
2.5 mg PO DAILY
levothyroxine [Synthroid] 25 mcg Tablet
25 mcg PO DAILY
finasteride 5 mg Tablet
5 mg PO DAILY
escitalopram oxalate [Lexapro] 20 mg Tablet
20 mg PO DAILY
rosuvastatin 10 mg Tablet
10 mg PO DAILY
aspirin 325 mg Tablet
325 mg PO DAILY Qty: 30 0RF
docusate sodium 100 mg Capsule
100 mg PO BID Qty: 30 0RF
acetaminophen [Tylenol Extra Strength] 500 mg Tablet
1,000 mg PO TID Qty: 30 0RF
carbidopa-levodopa 25-100 mg Tablet Extended Release
1 tab PO BID@999,1929
ibuprofen [Advil] 200 mg Tablet
800 mg PO BID
lorazepam [Ativan] 1 mg tablet
1 mg PO DAILY@1100
carbidopa-levodopa 25-100 mg tablet
2 tab PO QID@
baclofen 5 mg Tablet
5 mg PO TID Qty: 0 0RF
gabapentin [Neurontin] 100 mg capsule
100 mg PO TID Qty: 90 0RF
oxycodone 10 mg tablet
10 mg PO Q4H PRN (Reason: Pain) Qty: 14 0RF
Referrals:
UNKNOWN - PT DOES,NOT KNOW [Unknown Provider]
Interventions
Interventions:
*Risk Screen - Suicide Last Done: 01/30/25 12:29
*General Assessment Last Done: 01/30/25 12:29
*Neglect/Abuse Screening Last Done: 01/30/25 12:29
*ED COVID-19 Vaccine History Last Done: 01/30/25 12:36
*ED Influenza Vaccine History Last Done: 01/30/25 12:36
ED-Skin Assessment Last Done: 01/30/25 12:38
ED- Pulmonary Assessment Last Done: 01/30/25 12:38
Discharge Date and Time
Print Language: MALAY
[2025-01-30] MEDS: NSS 1000 IV ×2 (14:16→20:50)
[2025-01-30 14:28] LABS: Hematocrit 38.0 % (37.0-47.0); Hemoglobin 12.4 g/dL (12.0-16.0); Mean Corp Hgb Conc. 32.6 g/dL (33.0-37.0); Mean Corpuscular Volume 96.4 fL (81.0-99.0); Nucleated Red Blood Cells % 0 %; Platelet Count 386 10^3/uL (130-400); Red Cell Dist. Width 12.9 % (11.5-14.5)
[2025-01-30 14:33] LABS: Urine Character Clear (Clear)
[2025-01-30 14:41] LABS: ALT (SGPT) 11 U/L (0-35); AST (SGOT) 24 U/L (14-36); Albumin 4.3 g/dl (3.5-5.0); Alkaline Phosphatase 100 U/L (38-126); Blood Urea Nitrogen 21 mg/dl (7-17); Calcium 9.3 mg/dl (8.4-10.2); Carbon Dioxide 27 mmol/L (22-30); Chloride 107 mmol/L (98-107); Estimated Creatinine Clearance 65 ml/min; Glucose 111 mg/dl (70-99); Potassium 4.1 mmol/L (3.5-5.1); Sodium 138 mmol/L (135-145); Total Protein 7.0 g/dl (6.3-8.2); eGFR > 60.00
[2025-01-30] MEDS: SINEMET CR 25-100 (EXTENDED RELEASE) 1 TABLET PO (15:46)
[2025-01-30] MEDS: SINEMET 25-100 2 TABLET PO ×2 (15:46→20:53)
--- NOTE | 2025-01-30 17:51 | HPS.HSE ---
Family Physician
-
Family Physician: aKrolina Guo
Chief Complaint
-
shakiness, jittery
History of Present Illness
69F Lives alone, HX Parkinson's, HX Sacral Fx ( October 2024) Gait dysfunction seen at ER:
- shakiness starting this morning after taking 2 tablets of Tylenol with codeine which was a new prescription for her last night. She feels as though she is reacting to the medication.
- above prevented her from taking her first dose of her Sinemet for her Parkinson's and feels as though this is exacerbating her shakiness.
- No chest pain.
Medical History
Past Medical History
Past Medical History: Reports Other
Additional Past Medical History:
Parkinson's disease
hypercholesterolemia
hypothyroid
depression/anxiety
Past Surgical History: Reports Other
Additional Past Surgical History:
Right wrist status post metal plate and screws transfixing an old healed fracture of the distal right radius
Bilateral tubal ligation(1977)
breast calcifications
Bilateral tubal ligation(1977)
s/p LEEP Dr. [facility] ([facility])
Cataracts 2023
Social History
Tobacco: Non-smoker
Personal:
Living: With Family
Family History
Family History: Not pertinent
Allergies / Home Medications
Allergies reflects when Allergies were last updated in [facility].
Home Medications with original date entered in [facility]
Allergy/Medication List:
Allergies
Allergy/AdvReac Type Severity Reaction Status Date / Time
Iodinated Contrast Media (IV Allergy Intermediate Rash Verified 10/31/24 11:17
Dye, Iodine Containing)
morphine (Morphine) Allergy Intermediate Rash Verified 10/31/24 11:17
Home Medications
escitalopram oxalate 20 mg tablet (Lexapro) 20 mg PO DAILY Mental Health/Anxiety 09/29/24
finasteride 5 mg tablet 5 mg PO DAILY Urinary Issue 09/29/24
levothyroxine 25 mcg tablet (Synthroid) 25 mcg PO DAILY Thyroid 09/29/24
minoxidil 2.5 mg tablet 2.5 mg PO DAILY Blood Pressure 09/29/24
rosuvastatin 10 mg tablet 10 mg PO DAILY High Cholesterol 09/29/24
acetaminophen 500 mg tablet (Tylenol Extra Strength) 1,000 mg (2 x 500 mg) PO TID #30 tabs 10/03/24
aspirin 325 mg tablet 325 mg PO DAILY #30 tabs 10/03/24
docusate sodium 100 mg capsule 100 mg PO BID #30 caps 10/03/24
baclofen 5 mg tablet 5 mg PO BID 10/31/24
carbidopa 25 mg-levodopa 100 mg tablet 2 tab PO QID@07,10,14,192910/31/24
carbidopa ER 25 mg-levodopa 100 mg tablet,extended release 1 tab PO BID@1000,0 10/31/24
ibuprofen 200 mg tablet (Advil) 800 mg PO BID 10/31/24
lorazepam 0.5 mg tablet 0.5 mg PO QPMPRN PRN anxiety 10/31/24
lorazepam 1 mg tablet (Ativan) 1 mg PO DAILY@1100 anxiety 10/31/24
oxycodone 5 mg tablet 2.5 mg PO TID 10/31/24
Review of Systems
-
Constitutional: Reports See HPI
EENT: Reports No Symptoms
Respiratory: Reports No Symptoms
Cardiac: Reports No Symptoms
Abdomen/GI: Reports No Symptoms
: Reports No Symptoms
Musculoskeletal: Reports No Symptoms
Skin: Reports No Symptoms
Neurological: Reports See HPI and Other (shakiness , jittery )
Endocrine: Reports No Symptoms
Hematologic/Lymphatic: Reports No Symptoms
Psych: Reports No Symptoms
Physical Exam
Vital Signs
Vital Signs
Temp Pulse Resp BP Pulse Ox
98.4 F 73 11 167/64 100
01/30/25 12:29 01/30/25 12:30 01/30/25 12:30 01/30/25 12:29 01/30/25 13:55
Physical Exam
General: Well Developed, Well Nourished and No Apparent Distress
HEENT: NormoCephalic, Moist mucous membranes and Atraumatic
Respiratory: Clear and Non Labored Respirations
Cardiac: S1/S2 and Regular Rhythm; No Murmur, Rub or Gallop
GI: Soft, Non Tender, Non Distended and Normal Bowel Sounds
Rectal: Deferred by Provider
Genito-urinary: Deferred by me
Musculoskeletal: No Clubbing, No Cyanosis, No Edema and Other (lower lumbar back sizer )
Skin: IV/Catheter Site
Neuro: Nonfocal/grossly intact
Laboratory Results
-
01/30/25 14:16
01/30/25 14:16
Laboratory Results
Total Bilirubin 0.3 mg/dl (0.2-1.3) 01/30/25 14:16
AST 24 U/L (14-36) 01/30/25 14:16
ALT 11 U/L (0-35) 01/30/25 14:16
Alkaline Phosphatase 100 U/L (38-126) 01/30/25 14:16
Data Reviewed
-
Lab Data: Labs Reviewed by me
Old Records: Reviewed
Impression/Plan
-
Temp Pulse Resp BP Pulse Ox
98.4 F 73 11 167/64 100
01/30/25 12:29 01/30/25 12:30 01/30/25 12:30 01/30/25 12:29 01/30/25 13:55
Abnormal Labs
01/30/25
14:16
RBC 3.94 L
MCH 31.5 H
MCHC 32.6 L
Absolute Neuts (auto) 6.6 H
Absolute Monos (auto) 0.7 H
Neutrophils % 75.7 H
Lymphocytes % 14.8 L
BUN 21 H
Glucose 111 H
Urine RBC 3-6 A
Urine Bacteria (Reflex) Few A
Urine Albumin (Reflex) 1+ A
Last hospitalist admission: 10/31/2024 - 11/11/2024
FINAL DIAGNOSES:
1. Sacral fracture.
2. Mild Parkinson's disease.
3. Ambulatory dysfunction.
4. Severe discogenic disease of lumbar spine.
5. Status post right hip fracture, previous surgical intervention
09/30/2024.
6. Hypothyroidism.
7. Hyperlipidemia.
ASSESSMENT & PLAN
Pending Rx reconciliation
Worsening tremors suspect due to missed Sinemet dose
Restlessness and Jittery possible due to Codine ( Tylenol 3 ) or BZD acute WDS
- Hold Tylenol No. 3
- Resume Sinemet
- cont OP Ativan
- check TSH
- OBS admission
Sacral Fx in October 2024
Severe discogenic disease of lumbar spine.
Status post right hip fracture, previous surgical [id number]/14/2025.
Inadequate pain control
Associated Gait dysfunction
Lives alone
- resume OP Med - pending reconciliation
- Suspect deconditioning
- PT/OT
- CRM to evaluate
Parkinson's disease, mild
- resume carbidopa-levodopa
Hypercholesterolemia
- continue rosuvastatin
Hypothyroid
- check TSH
- continue levothyroxine
Depression/anxiety
- continue escitalopram and lorazepam
DVT Px: LMWH
Full code
OBS MS
[2025-01-30] MEDS: NEURONTIN 200 MG PO (22:54)
[2025-01-31] MEDS: ATIVAN 0.5 MG PO (05:30)
[2025-01-31] MEDS: TYLENOL 650 MG PO ×2 (05:35→10:01)
[2025-01-31 06:00] VITALS: BMI 18.7
[2025-01-31 07:00] VITALS: BP 112/78
[2025-01-31 07:23] LABS: Hematocrit 38.7 % (37.0-47.0); Hemoglobin 12.5 g/dL (12.0-16.0); Mean Corp Hgb Conc. 32.3 g/dL (33.0-37.0); Mean Corpuscular Volume 97.5 fL (81.0-99.0); Platelet Count 368 10^3/uL (130-400); Red Cell Dist. Width 12.8 % (11.5-14.5)
[2025-01-31] MEDS: NEURONTIN 100 MG PO (07:24)
[2025-01-31] MEDS: SYNTHROID 25 MCG PO (07:24)
[2025-01-31] MEDS: SINEMET 25-100 2 TABLET PO ×2 (07:24→10:01)
[2025-01-31] MEDS: LEXAPRO 20 MG PO (07:27)
[2025-01-31 07:36] LABS: Blood Urea Nitrogen 16 mg/dl (7-17); Calcium 8.9 mg/dl (8.4-10.2); Carbon Dioxide 25 mmol/L (22-30); Chloride 110 mmol/L (98-107); Estimated Creatinine Clearance 61 ml/min; Glucose 92 mg/dl (70-99); Potassium 4.3 mmol/L (3.5-5.1); Sodium 139 mmol/L (135-145); eGFR > 60.00
[2025-01-31 08:16] LABS: TSH 1.68 uIU/ml (0.47-4.68)
[2025-01-31 08:35] LABS: Vitamin B12 630 pg/ml (239-931)
[2025-01-31] MEDS: SINEMET CR 25-100 (EXTENDED RELEASE) 1 TABLET PO (10:01)
[2025-01-31 10:37] VITALS: BP 134/65; PULSE 77; O2SAT 100
[2025-01-31] MEDS: SENOKOT-S 1 TABLET PO (10:46)
[2025-01-31 11:01] VITALS: BP 136/65; PULSE 79; O2SAT 100
--- NOTE | 2025-01-31 11:22 | W.PN.HOSP.TC ---
Today's Communication/Plan
-
d/c
Assessment / Plan
Assessment / Plan
Gen: NAD, AAOx3.
Eyes: EOMI, PERRLA, no scleral icterus.
Neck: supple.
CV: RRR, +S1/S2, no m/r/g.
Resp: CTAB, no rales, wheezes, or rhonchi.
Abd: +BS, soft, NT, ND
Skin: No rashes.
Neuro: CN 2-12 intact, non-focal.
Psych: Normal mood and affect.
Acute toxic encephalopathy, POA:
-On admission there were reports of missed Sinemet doses but the patient reports that she did not miss any Sinemet doses. When she came in she had restlessness and was feeling 'jittery.' Patient states to me that she had an increase in her dose of
Tylenol 3 and feels that her side effects were related to codeine. She actually mentions that her initial symptoms were lethargy as if 'I drink too much wine.'
-cont Sinemet and Ativan as prior to admission
-hold Tylenol with codeine on discharge. Patient is to talk to Dr. Kellogg about further pain management.
Other problems:
Sacral fx in October 2024
Severe discogenic disease of lumbar spine.
h/o R hip fracture s/p surgical intervention 09/30/24
-with associated gait dysfunction
-pt will have VN on d/c
Medically cleared for discharge.
Total time spent on d/c = 42 min. This included today's physical exam, progress note, review of laboratory and diagnostic data, preparation of discharge documents and prescriptions, and discussions about the pt's hospital course and discharge plan
with the patient and other medical sonographer involved in the patient's care.
Anticipated Discharge: Today
Subjective/Interval History
-
Date of Service: January 31, 2025
Patient states she feels significantly better than when she came into the hospital.
Objective Data
-
Labs:
Laboratory Results
01/31/25
06:24
WBC 7.6
Hgb 12.5
Hct 38.7
Plt Count 368
Sodium 139
Potassium 4.3
Chloride 110 H
Carbon Dioxide 25
BUN 16
Creatinine 0.6
Glucose 92
Calcium 8.9
Vital Signs:
Vital Signs
Temp Pulse Resp BP Pulse Ox
98.4 F 70 18 112/78 99
01/31/25 07:00 01/31/25 07:00 01/31/25 07:00 01/31/25 07:00 01/31/25 07:00
I&O
01/30/25 01/31/25 02/01/25
06:59 06:59 06:59
Intake Total 600 / 600
Balance 600 / 600
[2025-01-31] MEDS: NSS 1000 IV (11:30)
--- NOTE | 2025-01-31 12:01 | CM ---
sow farm manager reviewed patient's chart and met with patient and roly was admitted under obs, CONNELLY letter provided to patient patient lives alone in a one story home with one step to enter, patient is independent with adl's and ambulation, patient
has a cane and walker that she rarely uses, plan is to home with visiting nurses options reviewed and patient has selected [facility]. [facility].
PCP: Dr. Maciel
Pharmacy: [facility] in [place]
Plan; Home with [facility]
[phone]
[2025-01-31 13:00] VITALS: BP 131/53
--- NOTE | 2025-01-31 14:40 | W.DCSUMMARY ---
Discharge Summary
Discharge Data
Date of Admission: 01/30/25
Date of Discharge: 01/31/25
-
Pending Results: No
Hospital Course
Primary diagnoses:
Acute toxic encephalopathy due to Tylenol with codeine
Secondary diagnoses:
Sacral fracture in October 2024
Severe discogenic disease of lumbar spine
h/o R hip fracture s/p surgical intervention September 2024
Gait dysfunction
Consultants:
None
Imaging:
None
Hospital course: 69-year-old female presented with chief complaints of shakiness and jitteriness as outlined in the H&P done on admission. On admission there were reports of missed Sinemet doses but the patient reports that she did not miss any
Sinemet doses. When she came in she had restlessness and was feeling 'jittery.' The patient stated to me that she had an increase in her dose of Tylenol 3 and feels that her side effects were related to codeine. She actually mentioned that her
initial symptoms were lethargy as if 'I drank too much wine.' Her Sinemet and Ativan were continued. Her Tylenol with codeine was not continued during hospitalization nor on discharge. The patient is to talk to Dr. Kellogg about further pain
management. The day after admission the patient stated she felt significantly improved, clinically. She was discharged in medically stable condition.
Discharge Plan
-
Patient Disposition: Home with Home Care
Discharge Diagnosis/Procedures: Acute toxic encephalopathy due to Tylenol with codeine
Condition: Good
Diet: Low Cholesterol
Activity: As tolerated
Driving Restrictions: As prior to admission
Referrals:
Karolina Guo NP [Family Provider, Internal Medicine] - in less than 1 week
Prescriptions:
Continued
minoxidil 2.5 mg Tablet
2.5 mg PO DAILY
levothyroxine [Synthroid] 25 mcg Tablet
25 mcg PO DAILY
escitalopram oxalate [Lexapro] 20 mg Tablet
20 mg PO DAILY
rosuvastatin 10 mg Tablet
10 mg PO DAILY
carbidopa-levodopa 25-100 mg Tablet Extended Release
1 tab PO DAILY
Rx Instructions:
daily at 1800
ibuprofen [Advil] 200 mg Tablet
400 mg PO BID
carbidopa-levodopa 25-100 mg tablet
2 tab PO QID@,,,1929
lorazepam [Ativan] 0.5 mg Tablet
0.5 mg BID
Rx Instructions:
takes at 8am and 4pm
gabapentin 100 mg Capsule
100 mg PO DAILY
gabapentin 100 mg Capsule
200 mg HS
acetaminophen [Tylenol Extra Strength] 500 mg tablet
1,000 mg PO TID
docusate sodium 100 mg capsule
100 mg PO BID
Discontinued
oxycodone 10 mg tablet
10 mg PO Q4H PRN (Reason: Pain) Qty: 14 0RF
Discharge Orders:
Discharge Patient (As Directed); Ordered 01/31/25
Ordered By: Martín Kumar
Discharge Date and Time
Discharge Date/Time: 01/31/25 13:20
Print Language: NORWEGIAN
== END 2025-01-31 13:20 | disposition home health service (06) ==
LOC: 4 WEST ACU 18:36
PROVIDERS: Physician Assistant; ADMITTING PHYSICIAN Internal Medicine; ATTENDING PHYSICIAN Internal Medicine; EMERGENCY PHYSICIAN Emergency Medicine; FAMILY PHYSICIAN Internal Medicine
DX: G92.8 Other toxic encephalopathy (principal); T40.2X5A Adverse effect of other opioids, initial encounter; R53.1 Weakness; G20.A1 Parkinson's disease without dyskinesia, without mention of fluctuations; E78.00 Pure hypercholesterolemia, unspecified; G92.9 Unspecified toxic encephalopathy; M51.26 Other intervertebral disc displacement, lumbar region; E03.9 Hypothyroidism, unspecified; F41.9 Anxiety disorder, unspecified; F32.A Depression, unspecified; Z79.899 Other long term (current) drug therapy
CPT/HCPCS: 80048; 80053; 81003; 81015; 82607; 84443; 85025; 85027; 96360; 97162; 97166; 97535; 99284; G0378

== ENCOUNTER → 2025-03-20 16:43 | Outpatient (REF) | payer OTHER, SELFPAY | LOC: RAD 16:43 | PROVIDERS: ATTENDING PHYSICIAN Physician Assistant Surgical; FAMILY PHYSICIAN Internal Medicine | DX: S32.10XA Unspecified fracture of sacrum, initial encounter for closed fracture (principal) | CPT/HCPCS: 72192 ==